=== PATIENT | female | born 1960 | race Caucasian/White ===

== ENCOUNTER → 2017-01-22 | Outpatient (REF) | payer OTHER ==
[2017-01-22 13:33] LABS: MEAN CORPUSCULAR HEMOGLOBIN 31.2 pg (27.0-33.0); MEAN CORPUSCULAR HGB CONC 35.5 g/dl (32.0-36.5); MEAN CORPUSCULAR VOLUME 88.1 fl (80.0-96.0); RED CELL DISTRIBUTION WIDTH 14.9 % (11.5-14.5); WHITE BLOOD COUNT 4.9 K/mm3 (4.0-10.0)
[2017-01-22 14:27] LABS: ALBUMIN 3.7 GM/DL (3.2-5.2); ALBUMIN/GLOBULIN RATIO 1.19 (1.00-1.93); ALKALINE PHOSPHATASE 72 U/L (45-117); ALT/SGPT 22 U/L (12-78); ANION GAP 9 MEQ/L (8-16); AST/SGOT 13 U/L (15-37); BILIRUBIN,TOTAL 0.3 MG/DL (0.2-1.0); BLOOD UREA NITROGEN 22 MG/DL (7-18); CALCIUM LEVEL 8.7 MG/DL (8.5-10.1); CARBON DIOXIDE LEVEL 31 MEQ/L (21-32); CHLORIDE LEVEL 103 MEQ/L (98-107); CHOLESTEROL LEVEL 168 MG/DL (<200); CREATININE FOR GFR 0.52 MG/DL (0.55-1.02); FREE T4 1.24 NG/DL (0.76-1.46); GLOMERULAR FILTRATION RATE > 60.0 (>51); GLUCOSE, FASTING 89 MG/DL (70-105); MAGNESIUM LEVEL 1.9 MG/DL (1.8-2.4); SODIUM LEVEL 143 MEQ/L (136-145); TOTAL PROTEIN 6.8 GM/DL (6.4-8.2); TRIGLYCERIDES LEVEL 125 MG/DL (<150); URIC ACID 5.6 MG/DL (2.6-6.0)
== END ==
LOC: M LABDRAW1 13:00
PROVIDERS: ATTEND Nurse Practitioner Family
DX: M15.9 Polyosteoarthritis, unspecified (principal); I10 Essential (primary) hypertension; E03.9 Hypothyroidism, unspecified; E11.9 Type 2 diabetes mellitus without complications; E78.2 Mixed hyperlipidemia

== ENCOUNTER → 2017-03-30 | Outpatient (CLI) | payer OTHER ==
--- NOTE | 2017-03-30 10:28 | REPMRS ---
Patient History The patient states she has not had a clinical breast exam in over a year. Patient is postmenopausal and is nulliparous. No known family history of cancer. Stereotatic Loc for ea Lesion of the right breast, January 22, 2012. Benign lumpectomy of the left breast, 2008. Digital Woman Screen Mammo: March 30, 2017 - Exam #: [id number] Bilateral CC and MLO view(s) were taken. Technologist: Alize Tristan, Technologist Prior study comparison: March 29, 2016, digital woman screen mammo performed at [facility]. March 29, 2015, digital woman screen mammo performed at [facility] to [facility]. FINDINGS: There are scattered fibroglandular densities. There has been no change in the appearance of the mammogram from the prior studies. There is a mild amount of residual fibroglandular tissue which is fairly symmetric. There is no interval development of dominant mass, architectural distortion, or clustered microcalcification suggestive of malignancy. ASSESSMENT: BI-RADS/ACR category 1 mammogram. Negative. Recommendation Routine screening mammogram in 1 year (for women over age 40). This mammogram was interpreted with the aid of an FDA-approved computer-aided dectection system. Electronically Signed By: Drew Fraire MD 03/30/17 [id number]
== END ==
LOC: M WHC 08:52
PROVIDERS: ATTEND Nurse Practitioner Family
DX: Z12.31 Encounter for screening mammogram for malignant neoplasm of breast (principal); Z78.0 Asymptomatic menopausal state

== ENCOUNTER → 2017-10-02 | Outpatient (CLI) | payer OTHER ==
[2017-10-02 13:57] LABS: ESTIMATED AVERAGE GLUCOSE 126 MG/DL (60-110)
[2017-10-02 13:58] LABS: TOTAL 25(OH) VITAMIN D 41.5 NG/ML (30.0-100.0)
[2017-10-02 14:13] LABS: ALBUMIN 3.5 GM/DL (3.2-5.2); ALBUMIN/GLOBULIN RATIO 1.06 (1.00-1.93); ALKALINE PHOSPHATASE 80 U/L (45-117); ALT/SGPT 20 U/L (12-78); ANION GAP 10 MEQ/L (8-16); AST/SGOT 17 U/L (7-37); BILIRUBIN,TOTAL 0.4 MG/DL (0.2-1.0); BLOOD UREA NITROGEN 23 MG/DL (7-18); CALCIUM LEVEL 8.9 MG/DL (8.5-10.1); CARBON DIOXIDE LEVEL 29 MEQ/L (21-32); CHLORIDE LEVEL 103 MEQ/L (98-107); CHOLESTEROL LEVEL 166 MG/DL (<200); CHOLESTEROL RISK RATIO 3.608 (<5); CREATININE FOR GFR 0.61 MG/DL (0.55-1.30); GLOMERULAR FILTRATION RATE > 60.0 (>51); GLUCOSE, FASTING 110 MG/DL (70-100); HDL CHOLESTEROL 46 MG/DL (>40); LDL CHOLESTEROL 76.2 MG/DL (<100); NON-HDL-C 120 MG/DL; POTASSIUM SERUM 3.7 MEQ/L (3.5-5.1); SODIUM LEVEL 142 MEQ/L (136-145); TOTAL PROTEIN 6.8 GM/DL (6.4-8.2); TRIGLYCERIDES LEVEL 219 MG/DL (<150)
[2017-10-02 14:28] LABS: MALB URINE SIEMENS 7.5 MG/L; MAU/CREAT RATIO 6.8 MCG/MG (0.0-30.0)
== END ==
LOC: M WUC 09:33
DX: E11.9 Type 2 diabetes mellitus without complications (principal); I10 Essential (primary) hypertension; M10.9 Gout, unspecified; E55.9 Vitamin D deficiency, unspecified
CPT/HCPCS: 84550

== ENCOUNTER → 2018-02-28 | Outpatient (CLI) | payer OTHER ==
[2018-02-28 13:16] LABS: ALBUMIN 3.3 GM/DL (3.2-5.2); ALBUMIN/GLOBULIN RATIO 0.94 (1.00-1.93); ALKALINE PHOSPHATASE 76 U/L (45-117); ALT/SGPT 19 U/L (12-78); ANION GAP 10 MEQ/L (8-16); AST/SGOT 13 U/L (7-37); BILIRUBIN,TOTAL 0.4 MG/DL (0.2-1.0); BLOOD UREA NITROGEN 21 MG/DL (7-18); CALCIUM LEVEL 8.6 MG/DL (8.5-10.1); CARBON DIOXIDE LEVEL 29 MEQ/L (21-32); CHLORIDE LEVEL 104 MEQ/L (98-107); CREATININE FOR GFR 0.62 MG/DL (0.55-1.30); FREE T4 1.13 NG/DL (0.76-1.46); GLOMERULAR FILTRATION RATE > 60.0 (>51); GLUCOSE, FASTING 101 MG/DL (70-100); POTASSIUM SERUM 4.1 MEQ/L (3.5-5.1); SODIUM LEVEL 143 MEQ/L (136-145); TOTAL PROTEIN 6.8 GM/DL (6.4-8.2)
[2018-02-28 13:39] LABS: ESTIMATED AVERAGE GLUCOSE 117 MG/DL (60-110); HEMOGLOBIN A1c 5.7 %
== END ==
LOC: M WUC 10:18
DX: E11.9 Type 2 diabetes mellitus without complications (principal); E03.9 Hypothyroidism, unspecified
CPT/HCPCS: 84443

== ENCOUNTER → 2018-04-03 | Outpatient (CLI) | payer OTHER | LOC: M WHC 14:29 | DX: Z12.31 Encounter for screening mammogram for malignant neoplasm of breast (principal) | CPT/HCPCS: 77067 ==

== ENCOUNTER → 2018-09-13 | Outpatient (CLI) | payer OTHER ==
[2018-09-13 17:28] LABS: CREATININE, URINE 69.8 MG/DL; MAU/CREAT RATIO 11.4 MCG/MG (0.0-30.0)
[2018-09-13 18:03] LABS: ALBUMIN 3.6 GM/DL (3.2-5.2); ALT/SGPT 20 U/L (12-78); BILIRUBIN,TOTAL 0.3 MG/DL (0.2-1.0); BLOOD UREA NITROGEN 26 MG/DL (7-18); CALCIUM LEVEL 8.9 MG/DL (8.8-10.2); CARBON DIOXIDE LEVEL 27 MEQ/L (21-32); CHLORIDE LEVEL 101 MEQ/L (98-107); CHOLESTEROL LEVEL 188 MG/DL (<200); CHOLESTEROL RISK RATIO 4.372 (<5); CREATININE FOR GFR 0.88 MG/DL (0.55-1.30); FREE T4 1.28 NG/DL (0.76-1.46); GLOMERULAR FILTRATION RATE > 60.0 (>45); GLUCOSE, FASTING 100 MG/DL (70-100); HDL CHOLESTEROL 43 MG/DL (>40); LDL CHOLESTEROL 101 MG/DL (<100); NON-HDL-C 145 MG/DL; POTASSIUM SERUM 3.9 MEQ/L (3.5-5.1); SODIUM LEVEL 139 MEQ/L (136-145); TRIGLYCERIDES LEVEL 220 MG/DL (<150); URIC ACID 7.5 MG/DL (2.6-6.0)
[2018-09-13 18:24] LABS: HEMOGLOBIN A1c 5.9 %
== END ==
LOC: M WUC 11:42
PROVIDERS: ATTEND Nurse Practitioner Family
DX: E11.9 Type 2 diabetes mellitus without complications (principal); E03.9 Hypothyroidism, unspecified

== ENCOUNTER → 2018-11-19 | Outpatient (REF) | payer OTHER ==
[2018-11-19 10:39] LABS: BASO % 0.4 % (0.0-1.0); EOS # 0.1 10^3/uL (0.0-0.50); EOS % 1.2 % (0.0-3.0); HEMATOCRIT 35.7 % (36.0-47.0); HEMOGLOBIN 11.7 g/dl (12.0-15.5); LYMPH # 0.9 10^3/uL (1.5-4.5); LYMPH % 15.1 % (24.0-44.0); MEAN CORPUSCULAR HGB CONC 32.8 g/dl (32.0-36.5); MEAN CORPUSCULAR VOLUME 88.6 fl (80.0-96.0); MONO # 0.8 10^3/uL (0.0-0.8); MONO % 13.5 % (0.0-5.0); NEUTROPHILS # 3.9 10^3/uL (1.8-7.7); NEUTROPHILS % 69.1 % (36.0-66.0); PLATELET COUNT, AUTOMATED 193 10^3/uL (150-450); RED BLOOD COUNT 4.03 10^6/uL (4.00-5.40); WHITE BLOOD COUNT 5.7 10^3/uL (4.0-10.0)
[2018-11-19 11:34] LABS: ERYTHROCYTE SEDIMENTATION RATE 44 mm/hr (0-30)
== END ==
LOC: M SFHCPLAZ 08:52
PROVIDERS: ATTEND Family Medicine
DX: L01.00 Impetigo, unspecified (principal)

== ENCOUNTER → 2019-03-21 | Outpatient (REF) | payer OTHER ==
[2019-03-21 15:53] LABS: HEMOGLOBIN A1c 5.9 %
[2019-03-21 15:54] LABS: ALBUMIN 3.8 GM/DL (3.2-5.2); ALT/SGPT 20 U/L (12-78); BILIRUBIN,TOTAL 0.4 MG/DL (0.2-1.0); BLOOD UREA NITROGEN 23 MG/DL (7-18); CALCIUM LEVEL 9.1 MG/DL (8.8-10.2); CARBON DIOXIDE LEVEL 29 MEQ/L (21-32); CHLORIDE LEVEL 104 MEQ/L (98-107); CREATININE FOR GFR 0.87 MG/DL (0.55-1.30); FREE T4 1.16 NG/DL (0.76-1.46); GLOMERULAR FILTRATION RATE > 60.0 (>45); GLUCOSE, FASTING 119 MG/DL (70-100); POTASSIUM SERUM 3.8 MEQ/L (3.5-5.1); SODIUM LEVEL 140 MEQ/L (136-145); TOTAL PROTEIN 7.5 GM/DL (6.4-8.2)
== END ==
LOC: M LABDRAW1 10:36
PROVIDERS: ATTEND Nurse Practitioner Family
DX: I10 Essential (primary) hypertension (principal); E03.9 Hypothyroidism, unspecified; E11.9 Type 2 diabetes mellitus without complications

== ENCOUNTER → 2019-06-04 | Outpatient (CLI) | payer OTHER ==
--- NOTE | 2019-06-04 12:09 | REP ---
Chest x-ray: Two views. History: Exertional dyspnea. No comparison study. Findings: The lungs are symmetrically aerated and free of infiltrate. The pleural angles are sharp. The heart is mildly enlarged. Cardiothoracic ratio measures 53.0%. Pulmonary vasculature is cephalized. No interstitial edema is seen. The thoracic aorta is tortuous and calcific. There are mild degenerative changes in the thoracic spine. Impression: Mild cardiomegaly. Cephalization of pulmonary vasculature. Otherwise no acute disease. Electronically Signed by Monster Bertrand MD 06/04/2019 01:00 P
== END ==
LOC: M SMT 08:39
PROVIDERS: ATTEND Nurse Practitioner Family
DX: R06.9 Unspecified abnormalities of breathing (principal)

== ENCOUNTER → 2019-06-04 | Outpatient (CLI) | payer OTHER ==
--- NOTE | 2019-06-04 09:46 | REPMRS ---
Patient History The patient states she had a clinical breast exam in 03/2019. Patient is postmenopausal and is nulliparous. No known family history of cancer. Stereotatic Loc for ea Lesion of the right breast, January 22, 2012. Benign lumpectomy of the left breast, 2008. No Hormone Replacement Therapy 3D TOMOSYNTHESIS WAS PERFORMED. The [facility] lifetime risk for breast cancer is 9.0%. Digital Woman Screen Mammo: June 04, 2019 - Exam #: [id number] Bilateral CC and MLO view(s) were taken. Technologist: Alize Tristan, Technologist Prior study comparison: April 03, 2018, bilateral digital woman screen mammo performed at [facility]. March 30, 2017, digital woman screen mammo performed at [facility]. FINDINGS: There are scattered fibroglandular densities. There has been no change in the appearance of the mammogram from the prior studies. There is a mild amount of residual fibroglandular tissue which is fairly symmetric. There is no interval development of dominant mass, architectural distortion, or clustered microcalcification suggestive of malignancy. Assessment: BI-RADS/ACR category 1 mammogram. Negative Mammogram. Recommendation Routine screening mammogram in 1 year (for women over age 40). This mammogram was interpreted with the aid of an FDA-approved computer-aided dectection system. Electronically Signed By: Drew Fraire MD 06/04/19 0945
== END ==
LOC: M WHC 07:59
PROVIDERS: ATTEND Nurse Practitioner Family
DX: Z12.31 Encounter for screening mammogram for malignant neoplasm of breast (principal)

== ENCOUNTER → 2019-09-19 | Outpatient (CLI) | payer OTHER ==
[2019-09-19 18:40] LABS: ALBUMIN 3.7 GM/DL (3.2-5.2); ALT/SGPT 17 U/L (12-78); BILIRUBIN,TOTAL 0.3 MG/DL (0.2-1.0); BLOOD UREA NITROGEN 20 MG/DL (7-18); CALCIUM LEVEL 8.7 MG/DL (8.8-10.2); CARBON DIOXIDE LEVEL 28 MEQ/L (21-32); CHLORIDE LEVEL 102 MEQ/L (98-107); CHOLESTEROL LEVEL 200 MG/DL (<200); CHOLESTEROL RISK RATIO 4.444 (<5); CREATININE FOR GFR 0.86 MG/DL (0.55-1.30); GLOMERULAR FILTRATION RATE > 60.0 (>45); GLUCOSE, FASTING 110 MG/DL (70-100); HDL CHOLESTEROL 45 MG/DL (>40); LDL CHOLESTEROL 102 MG/DL (<100); NON-HDL-C 155 MG/DL; POTASSIUM SERUM 3.8 MEQ/L (3.5-5.1); SODIUM LEVEL 140 MEQ/L (136-145); TOTAL PROTEIN 7.6 GM/DL (6.4-8.2); TRIGLYCERIDES LEVEL 265 MG/DL (<150); URIC ACID 8.1 MG/DL (2.6-6.0)
[2019-09-19 18:41] LABS: TOTAL 25(OH) VITAMIN D 54.2 NG/ML (30.0-100.0)
[2019-09-19 18:43] LABS: CREATININE, URINE 66.1 MG/DL; MALB URINE SIEMENS 7.7 MG/L; MAU/CREAT RATIO 11.6 MCG/MG (0.0-30.0)
== END ==
LOC: M WUC 11:40
PROVIDERS: ATTEND Nurse Practitioner Family
DX: E11.9 Type 2 diabetes mellitus without complications (principal); E03.9 Hypothyroidism, unspecified; E78.2 Mixed hyperlipidemia; M10.9 Gout, unspecified; E55.9 Vitamin D deficiency, unspecified

== ENCOUNTER → 2020-01-15 | Outpatient (REF) | payer OTHER ==
[2020-01-15 11:48] LABS: HEMOGLOBIN A1c 5.7 %
[2020-01-15 13:35] LABS: ALBUMIN 3.6 GM/DL (3.2-5.2); ALT/SGPT 18 U/L (12-78); BILIRUBIN,TOTAL 0.7 MG/DL (0.2-1.0); BLOOD UREA NITROGEN 23 MG/DL (7-18); CALCIUM LEVEL 8.8 MG/DL (8.8-10.2); CARBON DIOXIDE LEVEL 28 MEQ/L (21-32); CHLORIDE LEVEL 103 MEQ/L (98-107); CHOLESTEROL LEVEL 182 MG/DL (<200); CHOLESTEROL RISK RATIO 4.333 (<5); CREATININE FOR GFR 0.85 MG/DL (0.55-1.30); FREE T4 1.11 NG/DL (0.76-1.46); GLOMERULAR FILTRATION RATE > 60.0 (>45); GLUCOSE, FASTING 120 MG/DL (70-100); HDL CHOLESTEROL 42 MG/DL (>40); LDL CHOLESTEROL 73 MG/DL (<100); NON-HDL-C 140 MG/DL; POTASSIUM SERUM 3.9 MEQ/L (3.5-5.1); SODIUM LEVEL 140 MEQ/L (136-145); TOTAL PROTEIN 7.2 GM/DL (6.4-8.2); TRIGLYCERIDES LEVEL 333 MG/DL (<150)
== END ==
LOC: M SFHCPLAZ 09:25
PROVIDERS: ATTEND Nurse Practitioner Family
DX: E11.9 Type 2 diabetes mellitus without complications (principal); E03.9 Hypothyroidism, unspecified; E78.2 Mixed hyperlipidemia

== ENCOUNTER → 2020-07-12 | Outpatient (REF) | payer OTHER ==
[2020-07-12 15:27] LABS: HEMOGLOBIN A1c 6.1 %
[2020-07-12 15:30] LABS: CREATININE, URINE 27.5 MG/DL; MALB URINE SIEMENS 6.6 MG/L
[2020-07-12 15:40] LABS: ALBUMIN 3.6 GM/DL (3.2-5.2); BILIRUBIN,TOTAL 0.3 MG/DL (0.2-1.0); CALCIUM LEVEL 9.4 MG/DL (8.8-10.2); CHOLESTEROL RISK RATIO 3.954 (<5); CREATININE FOR GFR 1.12 MG/DL (0.55-1.30); FREE T4 1.23 NG/DL (0.76-1.46); GLOMERULAR FILTRATION RATE 52.5 (>45); POTASSIUM SERUM 4.3 MEQ/L (3.5-5.1); THYROID STIMULATING HORMONE 1.6 uIU/ML (0.358-3.740); TOTAL PROTEIN 7.1 GM/DL (6.4-8.2)
== END ==
LOC: M PLALAB 10:39
PROVIDERS: ATTEND Nurse Practitioner Family
DX: E11.9 Type 2 diabetes mellitus without complications (principal); E03.9 Hypothyroidism, unspecified; E78.2 Mixed hyperlipidemia; E55.9 Vitamin D deficiency, unspecified

== ENCOUNTER → 2020-08-25 | Outpatient (CLI) | payer OTHER ==
--- NOTE | 2020-08-25 10:32 | REP ---
INDICATION: SCREENING MAMMOGRAM ENCOUNTER FOR. COMPARISON: 06/04/2019 as well as other prior exams. TECHNIQUE: MLO and CC views performed bilaterally with tomosynthesis. FINDINGS: Very mild scattered fibroglandular tissue is present. A new spiculated nodule is seen in the outer right breast. This measures about 1 cm in diameter. Otherwise no new mass or clustered microcalcifications are seen bilaterally. Biopsy clip is again seen in the inner right breast. The Volpara volumetric breast density pattern is A. IMPRESSION: BIRADS/ACR category 0 incomplete. New spiculated nodule outer right breast approximately 1 cm in diameter. Recommend spot compression views and ultrasound to further evaluate. This patient's Tyrer-Cuzick lifetime breast cancer risk assessment score is 8.71%. This mammogram was interpreted with the aid of an FDA-approved computer-aided detection system. The patient states she had a clinical breast exam in August 2020. The patient letter being requested is M0. RECOMMENDATION: Spot compression views and ultrasound outer right breast for new spiculated nodule. <Electronically signed by Drew Fraire > 08/25/20 1026
== END ==
LOC: M WHC 09:03
PROVIDERS: ATTEND Nurse Practitioner Family
DX: R92.2 Inconclusive mammogram (principal)

== ENCOUNTER → 2020-09-09 | Outpatient (CLI) | payer OTHER ==
--- NOTE | 2020-09-09 14:17 | REP ---
INDICATION: N63.0 ADDL VIEWS/RIGHT BREAST NODULE; N63.0 RIGHT BREAST NODULE. COMPARISON: Mammogram 08/25/2020. TECHNIQUE: Spot compression magnification views of the right breast performed in the upper-outer quadrant, with tomographic images in the mL projection. Focused right breast ultrasound performed in the upper-outer quadrant. FINDINGS: A 1 cm spiculated nodule is confirmed in the upper outer quadrant of the right breast. It is visualized both mammographically and sonographically. It is at the 10 o'clock position approximately 12 cm from the nipple. IMPRESSION: BIRADS/ACR category 4, suspicious. Small spiculated nodule confirmed mammographically and sonographically in the upper-outer quadrant of the right breast at about the 10 o'clock position, measuring 1 cm in diameter. Recommend ultrasound-guided biopsy with postprocedure mammogram. This mammogram was interpreted with the aid of an FDA-approved computer-aided detection system. The patient letter being requested is M4. RECOMMENDATION: Recommend ultrasound-guided biopsy of spiculated nodule upper-outer quadrant right breast with postprocedure mammography. <Electronically signed by Drew Fraire > 09/09/20 [id number]
== END ==
LOC: M WHC 12:58
PROVIDERS: ATTEND Nurse Practitioner Family
DX: N63.11 Unspecified lump in the right breast, upper outer quadrant (principal)
CPT/HCPCS: 76642; 77065; G0279

== ENCOUNTER → 2020-09-22 | Outpatient (CLI) | payer OTHER ==
[~2020-09-22] MED LIST: ALLO100T PO; ASPI81TA26 PO; BUPR150T4 PO; CALCCAP4 PO; CELE1CAP4 PO; DRIS50003 PO; LASI80TA3 PO; LEVO88CA PO; LEXA1TAB PO; LISI20TA20 PO; LOVA40TA PO; MAGN1CAP PO; METF500T13 PO; METO1TAB7 PO; OMEP1CAP73 PO; ONDA8TAB10 PO; POTASSIUM PO; PROC10TA4 PO
[2020-09-22 14:24] VITALS: BP 134/82
--- NOTE | 2020-09-22 16:29 | REP ---
INDICATION: R92.8 ABN RIGHT BREAST. COMPARISON: Seven hundred twenty-one. TECHNIQUE: Real-time sonographic evaluation of right breast performed. FINDINGS: Ultrasound guidance provided for ultrasound guided biopsy of right breast nodule at 10 o'clock. IMPRESSION: Ultrasound guidance for biopsy of right breast nodule at 10 o'clock. RECOMMENDATION: Clinical follow-up. <Electronically signed by Drew Fraire > 09/22/20 1189
--- NOTE | 2020-09-22 16:31 | REP ---
INDICATION: R92.8 ABN R MAMMO/U/S GUIDED BX/CK CLIP PLACEMENT. COMPARISON: 08/25/2020 and 09/09/2020. TECHNIQUE: ML and CC views right breast following ultrasound-guided biopsy of a nodule in the upper outer quadrant. FINDINGS: Metallic clip is seen at the site of the spiculated nodule in the upper outer quadrant of the right breast. IMPRESSION: Successful ultrasound-guided biopsy with appropriate clip placement at the site of the spiculated nodule in the upper outer quadrant of the right breast. RECOMMENDATION: Clinical follow-up. <Electronically signed by Drew Fraire > 09/22/20 1181
--- NOTE | 2020-09-25 12:53 | ROOPDOC ---
[facility] Report Of Operation Report of Operation DATE OF PROCEDURE: 09/22/20 DIAGNOSIS: right breast suspicious lesion PROCEDURE: Ultrasound guided biopsy of right breast suspicious lesion with clip placement SURGEON: Cee Munoz BLOOD LOSS: minimal COMPLICATIONS: none Lidocaine 1% LOT [id number] Expiration 11/2023 Sodium Bicarbonate 8.4% LOT [id number] Expiration 02/2021 Hydromark clip LOT [id number] Expiration 06/2023 SHAPE 4 Bx device: BARD [id number] x10 cm LOT [id number] Expiration 08/2022 Informed consent was obtained. The most common risk and possible complications including bleeding, hematoma, bruising, infection, injury to surrounding structures were explained to the patient and the patient expressed understanding. Patient was placed on the bed in the supine position. Appropriate time out was done stating patients name, date of , and the procedure to be performed. The right breast was prepped and draped in the usual fashion. The ultrasound was used to confirm the location of the lesion in the right breast at 10:00 12 centimeters from the nipple. Plain Lidocaine 1% and 8.4% sodium bicarbonate 10:1 mix was used to anesthetize the skin, the biopsy site and tissues along the anticipated biopsy tract. Small skin incision was made with blade number 11. BARD Marquee 14G cannula with introducer ([id number]) was inserted through the incision and advanced under the ultrasound guidance to position immediately adjacent to the lesion. Next, the introducer was removed and BARD Marquee 14G biopsy device was places in the cannula. Pre-biopsy imaging, and post-biopsy imaging were captured. Five good core biopsies were taken at various levels of the lesion. Specimen was placed in formaldehyde, labeled with appropriate biopsy site and patients name, and sent to pathology for evaluation. Next, the biopsy device was withdrawn and a clip introducer was inserted into the biopsy site via the cannula. The SHAPE 4 Hydromark clip was deployed under sonographic guidance. Post-clip placement image was captured. Manual pressure over the biopsy cavity and tract was held after the clip introducer was withdrawn. No bleeding was noted upon removal of the pressure. Post-biopsy mammogram of the right breast was obtained and showed clip in expected position. Postprocedural dressing was placed. Patient tolerated procedure well. Discharge instructions were discussed with the patient and the patient expressed understanding. CEE MUNOZ DO Sep 25, 2020 12:53
== END ==
LOC: M WHCPRO 08:55
PROVIDERS: ATTEND Surgery
DX: C50.911 Malignant neoplasm of unspecified site of right female breast (principal)
CPT/HCPCS: 19083; 77065; 88305; 88342; G0279

== ENCOUNTER → 2020-10-07 | Outpatient (CLI) | payer OTHER ==
[~2020-10-07] MED LIST changes: +ISOVUE-300 61% 50ML VIAL As Ordered ONE; +LIDOCAINE 1% MDV 20ML VIAL As Ordered ONE; +MIDAZOLAM INJ 2MG/2ML VIAL (J2250 PER 1MG) As Ordered ONE; -ONDA8TAB10 PO; -PROC10TA4 PO; +PROMETHAZINE INJ 25 MG/ML VIAL (J2550) As Ordered ONE; +VANCOMYCIN 1000MG/20ML VIAL As Ordered ONE; +diphenhydrAMINE 50MG/ML VIAL (J1200) As Ordered ONE; +fentaNYL 100 MCG/2 ML INJECTION (J3010) As Ordered ONE
[2020-10-07 09:31] VITALS: BP 133/64
--- NOTE | 2020-10-07 09:34 | IRHP ---
[facility] IR Pre-Procedure H & P General Date of Service: Oct 07, 2020 Procedure: Same Day Surgery Interval History and Physical I have seen the patient and reviewed last H & P performed within 30 days. There is no significant interval change. History of Present Illness Chief Complaint The patient is a 60-year-old female admitted with a reason for visit of right- sided Breast Ca. PRE-PROCEDURE DIAGNOSIS: Right-sided breast cancer HEART: Normal rate. LUNGS: Normal breathing at rest. ASA Classification ASA Classification: III-Severe systemic dis. Mallampati Score: II NPO: Yes Problems with prior sedation: No Obstructive Sleep Apnea: No Plan moderate sedation Allergies Coded Allergies: MS - Penicillins (Verified Allergy, Unknown, ITCHING AND HIVES, 12/02/12) MS - Penicillins Cross Reactors (Verified Allergy, Unknown, ITCHING AND HIVES, 12/02/12) Home Medications Scheduled Allopurinol (Allopurinol), 100 MG PO DAILY, (Reported) Aspirin (Aspirin EC), 81 MG PO DAILY, (Reported) Bupropion Hcl (Bupropion Xl), 150 MG PO QAM, (Reported) Calcium Carbonate/Vitamin D3 (Calcium 600 + Vit D 400 Softgl), 1 CAP PO BID, (Reported) Celecoxib (Celebrex), 200 MG PO DAILY, (Reported) Ergocalciferol (Vitamin D2) (Drisdol), 1,250 MCG PO QWEEK, (Reported) Escitalopram Oxalate (Lexapro), 10 MG PO DAILY, (Reported) Furosemide (Lasix), 80 MG PO DAILY, (Reported) Levothyroxine Sodium (Levothyroxine), 88 MCG PO DAILY, (Reported) Lisinopril/Hydrochlorothiazide (Lisinopril-Hctz 20-25 mg Tab), 1 TAB PO DAILY, (Reported) Lovastatin (Lovastatin), 40 MG PO QPM, (Reported) Magnesium Oxide (Magnesium), 500 MG PO DAILY, (Reported) Metformin HCl (Metformin HCl), 500 MG PO BID, (Reported) Metoprolol Succinate (Metoprolol Succinate), 50 MG PO DAILY, (Reported) Omeprazole (Omeprazole), 20 MG PO DAILY, (Reported) [Potassium Elixir], 10 MEQ PO DAILY, (Reported) VS, I&O, 24H, Fishbone Vital Signs/I&O Vital Signs Date Time Temp Pulse Resp B/P (MAP) Pulse Ox O2 Delivery O2 Flow Rate FiO2 10/07/20 09:20 51 18 100 Nasal Cannula 2 10/07/20 07:45 97.6 Laboratory Data 24H LABS Laboratory Tests 2 10/07/20 08:02: Bedside Glucose (Misc Panel) 141H REJI JUAREZ MD Oct 07, 2020 09:34
--- NOTE | 2020-10-07 12:57 | POST-OPPD ---
Postoperative Procedure Note Date Of Procedure: Oct 07, 2020 Time Of Procedure: 12:54 IR Ultrasound and fluoroscopy guided port placement. IR Ultrasound of the neck. IR Moderate sedation. Clinical indication: Right-sided breast cancer. Physician: Dr. Reed. Procedure: The patient was advised of the benefits, risks, and alternatives of the procedure and informed consent was obtained. A time-out was performed with verification of the patient's name, MRN, site of procedure and type of procedure to be performed. The patient was positioned in the supine position on the angiographic table. The site was prepped and draped in the usual sterile fashion. Moderate sedation was performed by the physician including the presence of an independent trained RN who assisted and monitored the patient's level of consciousness and physiologic status. Following the administration of fentanyl and Versed , the physician spent 45 minutes of continuous face to face time with the patient. Ultrasound of the neck reveals a patent and compressible left internal jugular vein. A billet checker radiograph reveals no gross abnormality. The neck and anterior chest wall were anesthetized with lidocaine. The left internal jugular vein was accessed using a microintroducer needle under ultrasound guidance, via a lateral approach. An 018 wire was advanced into the superior vena cava, the needle was removed and a microsheath was placed. An Amplatz wire was then passed into the inferior vena cava. An incision at the internal jugular vein access site and anterior chest wall were made using a scalpel. An incision was made at the anterior chest wall. A small pocket was created using a combination of blunt and sharp dissection. A tunneling device was then used to pass the catheter from the pocket to the neck puncture site. An 8- [employer] Smart power port was then positioned in the pocket. The catheter was then measured and cut. The introducer sheath was exchanged for a peel-away sheath. The catheter was passed through the peel-away sheath into the internal jugular vein and the peel-away sheath was removed. The port tip was positioned at the cavoatrial junction. The port was then accessed with a Sosa needle. The port flushes and aspirates well. The puncture site in the neck was closed. The chest wall incision was then closed with 2-0 Vicryl and 4-0 Monocryl. Glue and Steri- Strips were applied. A sterile dressing was then applied. The patient tolerated the procedure well and was returned to the PRU in stable condition. Estimated blood loss: <5 ml. Complications: None. Conclusion: 1. Successful placement of an 8-[place]amese [employer] Smart power port via the Left internal jugular vein. The port is ready for immediate use. 2. Patient to follow up in IR clinic in 2 weeks. Thank you for this referral. REJI REED MD Oct 07, 2020 12:57
== END ==
LOC: M IRPRO 07:26
PROVIDERS: ATTEND Radiology Diagnostic Radiology
DX: C50.911 Malignant neoplasm of unspecified site of right female breast (principal); Z88.0 Allergy status to penicillin; Z79.82 Long term (current) use of aspirin; Z79.84 Long term (current) use of oral hypoglycemic drugs; Z79.890 Hormone replacement therapy; Z79.899 Other long term (current) drug therapy
CPT/HCPCS: 36561; 99152; 99153; C1769; C1788; C1887; C1894; J1642; J1644; J2250; J3010; J3370; Q9967

== ENCOUNTER → 2020-10-18 | Outpatient (CLI) | payer OTHER ==
[~2020-10-18] MED LIST changes: -ISOVUE-300 61% 50ML VIAL As Ordered ONE; -LIDOCAINE 1% MDV 20ML VIAL As Ordered ONE; -MIDAZOLAM INJ 2MG/2ML VIAL (J2250 PER 1MG) As Ordered ONE; +ONDA8TAB10 PO; +PROC10TA4 PO; -PROMETHAZINE INJ 25 MG/ML VIAL (J2550) As Ordered ONE; -VANCOMYCIN 1000MG/20ML VIAL As Ordered ONE; -diphenhydrAMINE 50MG/ML VIAL (J1200) As Ordered ONE; -fentaNYL 100 MCG/2 ML INJECTION (J3010) As Ordered ONE
--- NOTE | 2020-10-18 18:15 | REPPI ---
INDICATION: I10 ESSENTIAL HYPERTENSION COMPARISON: 06/04/2019 TECHNIQUE: PA and lateral. FINDINGS: [id number] with tip in the SVC. The mediastinum and cardiac silhouette are normal. The lung velazquez demonstrate chronic stable changes without acute consolidation, effusion, or pneumothorax. The skeletal structures are intact and normal. IMPRESSION: No acute cardiopulmonary process. <Electronically signed by Carlos Verde > 10/18/20 [id number]
== END ==
LOC: M PLAIMG 09:09
PROVIDERS: ATTEND Nurse Practitioner Family
DX: I10 Essential (primary) hypertension (principal)

== ENCOUNTER → 2020-10-26 | Outpatient (POV) | payer OTHER ==
--- NOTE | 2020-10-28 10:39 | IRPN ---
[facility] IR Progress Note IR Progress Note DATE: Oct 26, 2020 Patient agreed to this telephone follow-up. I spent 5 minutes talking to the patient. FOLLOW-UP: Status post port placement. Patient states the port site is doing well. No pain, discharge or swelling. Port was used without any issues. ON EXAMINATION: Patient sent pictures of the port site. Port site appears to be healing well. No redness, discharge or swelling. One single Steri-Strip remains at the venotomy site and will fall off. IMPRESSION: Doing well status post port placement. No further follow-up scheduled unless initiated by patient and or referring provider. Thank you for this referral Allergies Coded Allergies: Penicillins (Unverified Allergy, Unknown, ITCHING AND HIVES, 10/14/20) REJI JUAREZ MD Oct 28, 2020 10:39
== END ==
LOC: M TMIRPOV 09:31
PROVIDERS: ATTEND Radiology Diagnostic Radiology
DX: Z45.2 Encounter for adjustment and management of vascular access device (principal)

== ENCOUNTER → 2020-11-03 | Outpatient (CLI) | payer OTHER ==
[~2020-11-03] MED LIST changes: +BUPR150T12 PO; -BUPR150T4 PO
--- NOTE | 2020-11-03 16:04 | REP ---
INDICATION: STARTING HERCEPTIN, HEART CONDITION. COMPARISON: None. TECHNIQUE/RADIOTRACER AND DOSE: Following the intravenous administration of 27.5 mCi technetium 99 M in vitro labeled red blood cells, using the ultra tag method, cine images of the heart are performed. FINDINGS: Appears to be relatively symmetrical left ventricular wall motion. Left ventricular ejection fraction is calculated comparing imaging in end diastole and end systole. IMPRESSION: Left ventricular ejection fraction 60.0%. <Electronically signed by Drew Fraire > 11/03/20 [id number]
== END ==
LOC: M RAD 12:55
PROVIDERS: ATTEND Specialist
DX: Z79.899 Other long term (current) drug therapy (principal)
CPT/HCPCS: 78472; A9560

== ENCOUNTER → 2020-11-08 | Outpatient (REF) | payer OTHER ==
[2020-11-08 14:51] LABS: ALBUMIN 3.7 GM/DL (3.2-5.2); CALCIUM LEVEL 9.6 MG/DL (8.8-10.2); CREATININE FOR GFR 1.17 MG/DL (0.55-1.30); GLOMERULAR FILTRATION RATE 49.9 (>45); PHOSPHORUS LEVEL 3.1 MG/DL (2.5-4.9); POTASSIUM SERUM 3.9 MEQ/L (3.5-5.1)
[2020-11-08 15:27] LABS: HEMOGLOBIN A1c 5.8 %
== END ==
LOC: M PLALAB 10:22
PROVIDERS: ATTEND Nurse Practitioner Family
DX: E11.22 Type 2 diabetes mellitus with diabetic chronic kidney disease (principal); N18.31 Chronic kidney disease, stage 3a

== ENCOUNTER → 2021-02-02 | Outpatient (CLI) | payer OTHER ==
[~2021-02-02] MED LIST changes: +ACET650T61 PO; +FERR325T3 PO; +METF-838 PO
--- NOTE | 2021-02-02 11:18 | REP ---
INDICATION: DIAG R BREAST MAMMO/BREAST CA. COMPARISON: Multiple TECHNIQUE: Right breast CC and MLO views using 2D and 3D modalities and compared to the prior exams. FINDINGS: In lieu of a small spiculated lesion seen in the right breast upper outer quadrant on the 09/09/2020 diagnostic mammogram there is a surgical biopsy clip in place. It is unchanged in position compared to the postprocedural examination of 09/22/2020. A small smoothly marginated nodule is seen surrounding the biopsy clip. There are no other significant breast abnormalities. IMPRESSION: BIRADS/ACR category 6 mammogram. Known breast cancer. No history of lumpectomy for this lesion. The patient letter being requested is M 6. RECOMMENDATION: As above <Electronically signed by Aman Meade > 02/02/21 0317
--- NOTE | 2021-02-02 12:21 | REP ---
INDICATION: R BREAST MAMMO/BREAST CA. COMPARISON: Examination 09/22/2020 images obtained during ultrasound-guided biopsy and in exam of 09/09/2020 imaging the same lesion. TECHNIQUE: Ultrasonographic images obtained at the 10 o'clock position in the postprocedural region. FINDINGS: There is an echogenic focus seen at the 10 o'clock position consistent with the patient's post biopsy clip. A smoothly marginated 1.3 by 0.4 by 0.4 cm sized hypoechoic area is seen surrounding the biopsy clip. This does not exhibit posterior wall enhancement or increased through transmission. IMPRESSION: As above. Patient with known breast cancer. ACR category 6 <Electronically signed by Aman Meade > 02/02/21 [id number]
== END ==
LOC: M WHC 10:03
PROVIDERS: ATTEND Surgery
DX: C50.411 Malignant neoplasm of upper-outer quadrant of right female breast (principal)
CPT/HCPCS: 76642; 77065; G0279

== ENCOUNTER → 2021-02-04 | Outpatient (REF) | payer OTHER ==
[2021-02-04 18:11] LABS: PERCENT SATURATION 14.8 % (13.2-45.0)
[2021-02-04 18:29] LABS: FOLATE 6.6 NG/ML
== END ==
LOC: M LAB REF 17:07
PROVIDERS: ATTEND Internal Medicine Nephrology
DX: N18.9 Chronic kidney disease, unspecified (principal); D63.1 Anemia in chronic kidney disease

== ENCOUNTER → 2021-02-10 | Outpatient (CLI) | payer OTHER | LOC: M LABSMTC 10:51 | PROVIDERS: ATTEND Anesthesiology | DX: Z11.52 Encounter for screening for COVID-19 (principal) ==

== ENCOUNTER → 2021-02-10 | Outpatient (CLI) | payer OTHER ==
--- NOTE | 2021-02-11 03:47 | REPPI ---
INDICATION: R06.00 DYSPNEA ON EXERTION COMPARISON: 10/18/2020 TECHNIQUE: PA and lateral. FINDINGS: The mediastinum and cardiac silhouette are normal. [id number]-Lveu identified with tip in the SVC. The lung velazquez are clear and without acute consolidation, effusion, or pneumothorax. The skeletal structures are intact and normal. IMPRESSION: No acute cardiopulmonary process. <Electronically signed by Carlos Verde > 02/11/21 [id number]
== END ==
LOC: M PLAIMG 13:52
PROVIDERS: ATTEND Family Medicine
DX: R06.00 Dyspnea, unspecified (principal)

== ENCOUNTER → 2021-02-10 | Outpatient (REF) | payer OTHER ==
[2021-02-10 15:59] LABS: HEMATOCRIT 29.9 % (36.0-47.0); MEAN CORPUSCULAR HEMOGLOBIN 32.3 pg (27.0-33.0); MEAN CORPUSCULAR HGB CONC 33.4 g/dl (32.0-36.5); MEAN CORPUSCULAR VOLUME 96.5 fl (80.0-96.0); PLATELET COUNT, AUTOMATED 346 10^3/uL (150-450); WHITE BLOOD COUNT 8.3 10^3/uL (4.0-10.0)
[2021-02-10 16:09] LABS: BLOOD UREA NITROGEN 19 MG/DL (7-18); CALCIUM LEVEL 8.9 MG/DL (8.8-10.2); CARBON DIOXIDE LEVEL 28 MEQ/L (21-32); CHLORIDE LEVEL 105 MEQ/L (98-107); GLOMERULAR FILTRATION RATE > 60.0 (>45); GLUCOSE, FASTING 136 MG/DL (70-100); NT-PRO BNP 121 PG/ML (<125); POTASSIUM SERUM 3.7 MEQ/L (3.5-5.1); SODIUM LEVEL 142 MEQ/L (136-145)
== END ==
LOC: M SFHCPLAZ 13:48
PROVIDERS: ATTEND Family Medicine
DX: N18.31 Chronic kidney disease, stage 3a (principal); D63.8 Anemia in other chronic diseases classified elsewhere; R06.00 Dyspnea, unspecified

== ENCOUNTER 2021-02-15 06:31 | Observation (INO) | payer OTHER ==
[~2021-02-15] VITALS: Ht 167.6 cm; Wt 147.9 kg
[~2021-02-15 06:31] MED LIST changes: +CLINDAMYCIN 900 MG in IV 1 EA IV ONE; +HEPARIN SOD (PORCINE) 5000UNITS/ML 1ML VIAL/SYRINGE SQ ONE; +LR 1,000 ML IV ONE
[2021-02-15] MEDS ORDERED: MIDAZOLAM INJ 2MG/2ML VIAL (J2250 PER 1MG) As Ordered ONE (09:46)
[2021-02-15] MEDS ORDERED: LIDOCAINE 1% SDV 30ML VIAL As Ordered ONE (10:12)
[2021-02-15] MEDS ORDERED: BUPIVACAINE HCL 0.25% 30ML VIAL As Ordered ONE (10:12)
[2021-02-15] MEDS ORDERED: METHYLENE BLUE 0.5% (5MG/ML) 10 ML AMP (PROVAYBLUE) As Ordered ONE (10:12)
[2021-02-15] MEDS ORDERED: propofoL 200 MG/20 ML VIAL As Ordered ONE (10:40)
[2021-02-15] MEDS ORDERED: dexameTHASONE 4 MG/ML 1ML VIAL (J1100 PER 1MG) As Ordered ONE (10:40)
[2021-02-15] MEDS ORDERED: ONDANSETRON 4MG/2ML VIAL As Ordered ONE (10:40)
[2021-02-15] MEDS ORDERED: SUCCINYLCHOLINE 100 MG/5 ML SYRINGE (J0330) As Ordered ONE (10:40)
[2021-02-15] MEDS ORDERED: ROCURONIUM BROMIDE 50 MG/5 ML VIAL As Ordered ONE (10:40)
[2021-02-15] MEDS ORDERED: LIDOCAINE 2% 100MG/5ML SDV (FOR ANES.) As Ordered ONE (10:40)
[2021-02-15] MEDS ORDERED: fentaNYL 100 MCG/2 ML INJECTION (J3010) As Ordered ONE (10:41)
[2021-02-15] MEDS ORDERED: ACETAMINOPHEN 1000MG 100ML IV BTL (OFIRMEV) (J0131 PER 10MG) As Ordered ONE (11:08)
[2021-02-15] MEDS ORDERED: diphenhydrAMINE 50MG/ML VIAL (J1200) As Ordered ONE (11:18)
[2021-02-15] MEDS ORDERED: HYDROmorphone HCL 2 MG/ML 1ML VIAL (J1170) As Ordered ONE (11:23)
[2021-02-15] MEDS ORDERED: GLYCOPYRROLATE INJ 0.2 MG/ML 2 ML VIAL As Ordered ONE (12:09)
[2021-02-15] MEDS ORDERED: ePHEDrine SULFATE 25 MG/5 ML(5MG/ML) SYRINGE As Ordered ONE (12:10)
[2021-02-15] MEDS ORDERED: PHENYLephrine 500MCG 5ML (100MCG/ML) SYRINGE As Ordered ONE (12:33)
--- NOTE | 2021-02-15 14:07 | ROOPDOC ---
[facility] Report Of Operation Report of Operation DATE OF PROCEDURE: 02/15/21 PREPROCEDURE DIAGNOSES: right breast cancer POSTPROCEDURE DIAGNOSES: right breast cancer PROCEDURE: right breast lumpectomy with intraop wire placement and injection of the blue dye into right breast, right setinel lymph node biopsy with frozen section SURGEON: Dr Cee Munoz ANESTHESIA: general ESTIMATED BLOOD LOSS: Approximately 25 mL. COMPLICATIONS: none REMARKS: frozen section was negative x4 hence no ALND was done, lumpectomy specimen showed wire and the clip, additional medial margin was taken DESCRIPTION OF PROCEDURE: INDICATIONS: Ms. Mcwilliams is a 60-year-old woman who was found to have a suspicious right breast mass on screening mammogram. This was evaluated with right breast US and sonographic correlate was found. US guided biopsy of the lesion came back as IDC, ER +, IN -, HER-2 +. She underwent neoadjuvant treatment and had complete response on rpt mammogram and US. She opted for breast conservative surgery with right sentinel lymph node biopsy with frozen section. I explained to the patient that if frozen section finds viable tumor in her lymph nodes, she will need completion axillary dissection which will be done at the time of index surgery. She was medically cleared for surgery by her primary care doctor. Risks and possible complications of surgical procedure including bleeding, infection, lymphedema, poor cosmetic results, need for additional surgery and injury to surrounding structures were explained to the patient and she wished to proceed. Consent was signed. My initials were placed on the operative site. Subcutaneous injection of 5000 units of heparin was done in Preop. The injection of radioactive tracer was done in radiology department preoperatively. Lymphoscintigraphy imaging was reviewed in preop. DETAILS: Patient was taken to the operating room and placed on the operating room table. A sign in was called stating patients name, date of and the procedure to be done. Preoperative antibiotics were infused. Smooth induction of general anesthesia was done. Patients hands were extended on arm rests. Care was taken not to over extend the arms. Pillow was placed under the knees and a foam was placed under the heels. Sequential compression devices were placed and assured to function correctly. Procedure was started with right breast intraop wire localization. Appropriate time out was done and patients name, date of , and the procedure to be done were confirmed. Right breast was cleaned by me. Intraoperative ultrasound was used to confirm location of the Hydromark clip. Location of the clip was marked on the skin as well. 21 G Kopans Breast Lesion Localization Needle was used to place 25 cm wire through the lesion. The end of the wire was passed a centimeter deep. The images were captured confirming adequate placement of the localizing wire. Striker Off assisted with the wire placement. Next, patients right breast and axilla were prepped and draped in the usual fashion. Care was taken not to displace the wire. Appropriate time out was done again prior second part of the procedure. Patients name, date of , and the procedure to be done were confirmed. Procedure was started with injection of 4 ml of undiluted blue dye into the right upper outer quadrant of the breast. The breast was massaged for a few minutes to allow propagation of the blue dye into the axilla. Next, out attention was turned toward the axilla. Neoprobe was used to locate area of maximum intensity of the signal. Local anesthetic using 1% lidocaine and 0.25 % Marcaine 50/50 mix was injected. An incision was made with scalpel number 15 at the inferior aspect of axillary hair line in the right axilla where the maximum signal was identified. The sharp and blunt dissection was continued through the subcutaneous adipose tissue. Clavipectoral fascia was opened. Neoprobe was used to guide the dissection. First sentinel lymph node was identified and excised. The ex-vivo 10 second count was 15868. This node was not blue. Second sentinel lymph node was identified and excised as well. The ex-vivo 10 second count was 10275. This node has darker center, possibly from the blue dye. Third sentinel lymph node was identified and excised as well. The ex-vivo 10 second count was 2772. This node was located deep in medial axilla and was relatively large. This node was not blue. There was one palpable lymph node noted which did not have any signal and was not blue. This was excised as well. The specimens were labeled with patients name and sent to pathology for frozen section. No additional lymph nodes with high radioactive signal were identified. The 10 second count of the background was 3. Pathologist called into the operating room and stated that none of the sent lymph node contained visible cancer on frozen section. The remained of the lymph nodes will be sent for permanent evaluation. Since frozen section is negative, there is no need to do full right axillary lymph node dissection. Adequate hemostasis was assured. Additional local anesthetic was injected into surrounding tissues. Wound was irrigated. Clavipectoral fascia was closed with 3-0 Vicryl interrupted suture. At this time, our attention was turned toward the right breast lumpectomy. The cancer was far away from the nipple hence axillary incision approach was chosen. Through the previously made right low axillary incision dissection was carried toward the wire. Skin flaps were raised and the guide wire was carefully pulled into the wound. Dissection was carries along the wire until the previously marked on the skin area of target lesion location was encountered. At this point, wider excision of the tissue surrounding the wire was done. The Hydromark clip was identified in the tissue with intraoperative hockey stick ultrasound probe. The end of the wire was identified with palpation. The lumpectomy spec imen was carefully removed from the breast keeping its proper orientation and moved to the back table where margins were marked with the surgical inking kit following the standard colors recommendations. Specimen measured 7x6x3 cm. Specimen was then placed on the grid and placed in [employer] Specimen Imaging System. The image revealed the wire and the Hydromark in the specimen. The sp ecimen was labeled with patients name and right lumpectomy and sent to pathology for permanent evaluation. Since on the post biopsy mammogram, clip appeared slightly lateral to the cancer, and since cancer could not be seen on current imaging due to very good response to chemotherapy, decision was made to take additional medial margin. The new margin, defined as margin farthest away from lumpectomy cavity, was marked with black ink. This was labeled with patients information and sent to pathology for permanent evaluation. Wound was thoroughly irrigated. Adequate hemostasis was assured. Additional local anesthetic was injected into surrounding tissues. Clips were placed to kelton the cavity. space was approximated with 2-0 Vicryl. The dermis was closed with 3-0 Vicryl and skin was closed with 4-0 Monocryl. Surgical glue was placed over the incision. Patient emerged from the anesthesia without any problems. Fluffs were placed over the operative site and patients chest was wrapped snuggly in the AHSAN wrap. Sponge and instrument counts were done and were correct. Patient tolerated procedure well and was taken to recovery unit in stable condition. CEE MUNOZ DO Feb 15, 2021 14:07
[2021-02-15] MEDS ORDERED: ROXI1TAB2 PO (14:17)
[2021-02-15] MEDS ORDERED: oxyCODONE 5MG TAB PO PRN ×2 (14:25→14:50)
[2021-02-15] MEDS ORDERED: fentaNYL 100 MCG/2 ML INJECTION (J3010) IV PRN (14:25)
[2021-02-15] MEDS ORDERED: LR 1,000 ML IV SCH (14:25)
[2021-02-15] MEDS ORDERED: ONDANSETRON 4MG/2ML VIAL IV PRN ×2 (14:25→14:50)
[2021-02-15] MEDS ORDERED: MEPERIDINE INJ 25 MG/ML VIAL (J2175) IV PRN (14:25)
[2021-02-15] MEDS ORDERED: ACETAMINOPHEN TAB 650MG DOSE (2X325MG) PO PRN (14:50)
[2021-02-15] MEDS ORDERED: DEXTROSE 50% 50 ML SYRINGE IV PRN (15:35)
[2021-02-15] MEDS ORDERED: GLUCAGON INJ 1MG VIAL SC PRN (15:35)
[2021-02-15] MEDS ORDERED: GLUCOSE 4GM CHEW TABLET PO PRN (15:35)
[2021-02-15 16:30] VITALS: BP 131/77
[2021-02-15] MEDS: NS 1,000 ML IV SCH (16:41)
[2021-02-15] MEDS: allopurinoL 100 MG TAB PO SCH (16:50)
[2021-02-15] MEDS: ESCITALOPRAM OXALATE 10 MG TAB (LEXAPRO) PO SCH (16:50)
[2021-02-15] MEDS: FERROUS SULFATE 325MG TAB PO SCH (16:50)
[2021-02-15 17:00] VITALS: BP 109/61
[2021-02-15] MEDS: HumaLOG INSULIN (NovoLOG) PER UNIT SC SCH (17:45)
[2021-02-15 18:00] VITALS: BP 117/52
[2021-02-15 18:42] VITALS: BP 113/61
--- NOTE | 2021-02-15 18:57 | REP ---
INDICATION: RIGHT BREAST CA. COMPARISON: None. TECHNIQUE/RADIOTRACER AND DOSE: This procedure was performed by Leigh Ann Regalado [facility], under the direct supervision of Dr. Fraire. Images were reviewed with Dr. Fraire prior to dictation. The risks and benefits of the procedure were explained to the patient and informed consent was obtained both orally and written. Directly prior to the start of the procedure, a formal timeout was done in the exam room. Using topical anesthetic and sterile technique 1.004 mCi of filtered Technetium-99m sulfur colloid was injected subdermally in 8 fractionated periareolar injections. FINDINGS: Images obtained 1 hour after injection show a dominant right axillary focus with 2 adjacent foci. IMPRESSION: There is a dominant right axillary focus, with 2 adjacent foci. <Electronically signed by Leigh Ann Regalado > 02/15/21 1012 <Electronically signed by Drew Fraire > 02/15/21 0780
[2021-02-15] MEDS ORDERED: HumaLOG INSULIN (NovoLOG) PER UNIT SC SCH (21:00)
[2021-02-15] MEDS ORDERED: SIMVASTATIN 40 MG TAB PO SCH (21:00)
[2021-02-15] MEDS ORDERED: FUROSEMIDE 80 MG TAB PO SCH (21:00)
[2021-02-15 22:00] VITALS: BP 130/68
--- NOTE | 2021-02-15 23:02 | HPEPDOC ---
General Date of Admission 02/15/21 Date of Service: Feb 15, 2021 Chief Complaint The patient is a 60-year-old female admitted with a reason for visit of Right Breast Cancer. Source: Patient History of Present Illness 60 year old female with history of right breast cancer diagnosed in sep 2020 finished chemo on 01/27/21, Morbid obesity, DM, HTN, HLD, hypothyroid, CKD stage 3, diastolic CHF was admitted for right breast surgery. Post surgery she was admitted for observation. Patient was seen int he PACU. Her pain was controlled about a 3/10 at the surgical site of right breast, dull aching in nature. She denied any nausea or vomiting. Denied any SOB. Home Medications Scheduled Acetaminophen (Tylenol Arthritis) 650 Mg Tablet.er, 1,000 MG PO DAILY, (Reported) Allopurinol (Allopurinol) 100 Mg Tablet, 300 MG PO DAILY, (Reported) Aspirin (Aspirin EC) 81 Mg Tablet.dr, 81 MG PO DAILY, (Reported) Bupropion Hcl (Bupropion Xl) 150 Mg Tab.er.24h, 450 MG PO QAM, (Reported) Calcium Carbonate/Vitamin D3 (Calcium 600 + Vit D 400 Softgl) 1 Each Capsule, 1 CAP PO BID, (Reported) Ergocalciferol (Vitamin D2) (Drisdol) 1,250 Mcg Capsule, 1,250 MCG PO DAILY, (Reported) Escitalopram Oxalate (Lexapro) 10 Mg Tablet, 10 MG PO DAILY, (Reported) Ferrous Sulfate (Ferrous Sulfate) 325 Mg Tablet.dr, 325 MG PO DAILY, (Reported) Furosemide (Lasix) 80 Mg Tablet, 80 MG PO BID, (Reported) Levothyroxine Sodium (Levothyroxine) 88 Mcg Capsule, 88 MCG PO DAILY, (Reported) Lovastatin (Lovastatin) 40 Mg Tablet, 40 MG PO QPM, (Reported) with food Magnesium Oxide (Magnesium) 500 Mg Capsule, 500 MG PO DAILY for constipation, (Reported) Metformin HCl (Metformin HCl ER) 500 Mg Tab.er.24h, 500 MG PO BID, (Reported) Metoprolol Succinate (Metoprolol Succinate) 50 Mg Tab.er.24h, 50 MG PO DAILY, (Reported) Omeprazole (Omeprazole) 20 Mg Capsule.dr, 20 MG PO DAILY, (Reported) Prochlorperazine Maleate (Prochlorperazine Maleate) 10 Mg Tablet, 10 MG PO Q8HP for Nausea and Vomitting Take 1 tablet by mouth every 8 hours as needed for nausea and vomitting [Potassium Elixir] , 20 MEQ PO BID, (Reported) Scheduled PRN Ondansetron HCl (Ondansetron HCl) 8 Mg Tablet, 8 MG PO Q8HP PRN for NAUSEA OR VOMITING Oxycodone HCl (Roxicodone) 5 Mg Tablet, 5 MG PO Q6HP PRN for pain Allergies Coded Allergies: Penicillins (Unverified Allergy, Unknown, ITCHING AND HIVES, 10/14/20) Past Medical History Medical History HYPERTENSION TYPE II DIABETES HYPERLIPIDEMIA ESOPHAGEAL REFLUX VITAMIN D DEFICIENCY HYPOTHYROIDISM OSTEOARTHRITIS GOUT OBESITY UNSPECIFIED ANEMIA DEPRESSION GRADE 1 LV DIASTOLIC DYSFUNCTION, MILD PULM HTN - ECHO 08/21 R BREAST DUCTAL CARCINOMA- ER+, DE-, HER2 + FINISHED CHEMO JANUARY 27 STAGE 3 CKD Surgical History LEFT BREAST BIOPSY TONSILLECTOMY ADENOIDECTOMY COLONOSCOPY/ BE - NEG - INGRID (REPEAT 10YRS) 8-12 BREAST BIOPSY R 5-12 R BREAST BIOPSY 09/22/19 PORT PLACEMENT Family History FATHER: 42 YRS, CORONARY ARTERY DISEASE MOTHER: 84 YRS, CANCER, MYELOMA, CORONARY ARTERY DISEASE, MA (AGE 50) BRO- AT 21, ANEURYSM, BRO - AT 52 - MA AFTER FOOT FRACTURE, HTN, DIABETES, KIDNEY FAILURE,OBESITY MATERNAL GRAND MOTHER: CANCER A-FIB/CHADSVASC A-FIB History Current/History of A-Fib/PAF?: No Review of Systems Constitutional: Denies: Chills, Fever, Night Sweats Eyes: Denies: Pain, Vision change ENT: Denies: Head Aches, Ear Pain, Dysphagia Skin: Denies: Rash, Lesions, Breakdown Pulmonary: Denies: Dyspnea, Cough Cardiovascular: Denies: Chest Pain, Palpitations, Orthopnea, Paroxysmal Noc. Dyspnea, Lt Headedness Gastrointestinal: Denies: Nausea, Vomiting, Abdominal Pain, Diarrhea Physical Examination General Exam: Positive: Alert, Cooperative, No Acute Distress Eye Exam: Positive: PERRLA, Conjunctiva & lids normal, EOMI; Negative: Sclera icteric ENT Exam: Positive: Atraumatic, Mucous membr. moist/pink, Pharynx Normal Chest Exam: Positive: Clear to auscultation, Normal air movement Heart Exam: Positive: Rate Normal, Regular Rhythm, Normal S1, Normal S2; Negative: Murmurs, Rubs Abdomen Exam: Positive: Normal bowel sounds, Soft; Negative: Tenderness, Hepatospenomegaly Extremity Exam: Positive: Edema; Negative: Clubbing, Cyanosis Vital Signs Vital Signs Date Time Temp Pulse Resp B/P (MAP) Pulse Ox O2 Delivery O2 Flow Rate FiO2 02/15/21 14:55 68 18 145/76 (99) 97 Nasal Cannula 2.0 02/15/21 14:50 97.7 Laboratory Data Labs 24H Laboratory Tests 2 02/15/21 09:25: Bedside Glucose (Misc Panel) 135H Assessment/Plan 60 year old female with history of right breast cancer diagnosed in sep 2020 finished chemo on 01/27/21, Morbid obesity, DM, HTN, HLD, hypothyroid , CKD stage 3, diastolic CHF was admitted for right breast surgery. Post surgery she was admitted for observation. Right breast invasive ductal carcinoma ER +, DE- and HER2+, s/p chemo Now Status post right lumpectomy, right sentinel lymph node biopsy with frozen section (negative) done on 02/15/21 pain control with tylenol, tramadol and oxycodone rest as per surgeon Diastolic CHF with fluid overload will resume lasix bid tomorrow Diabetes lispro AC and HS Hypothyroid synthroid Hypertension metoprolol Depression.anxiety lexapro, bupropion HLD statin Gout allopurinol. Plan / VTE VTE Prophylaxis Ordered?: Yes NELLA ZHAO MD Feb 15, 2021 15:42
[2021-02-16 02:00] VITALS: BP 103/58
[2021-02-16 06:00] VITALS: BP 107/58
[2021-02-16] MEDS ORDERED: LEVOTHYROXINE 88MCG TABLET (0.088 MG) PO SCH (06:00)
[2021-02-16 06:59] LABS: HEMATOCRIT 27.4 % (36.0-47.0); HEMOGLOBIN 8.9 g/dl (12.0-15.5); MEAN CORPUSCULAR HEMOGLOBIN 31.7 pg (27.0-33.0); MEAN CORPUSCULAR HGB CONC 32.5 g/dl (32.0-36.5); MEAN CORPUSCULAR VOLUME 97.5 fl (80.0-96.0); PLATELET COUNT, AUTOMATED 283 10^3/uL (150-450); RED BLOOD COUNT 2.81 10^6/uL (4.00-5.40); WHITE BLOOD COUNT 9.7 10^3/uL (4.0-10.0)
[2021-02-16 07:16] LABS: BLOOD UREA NITROGEN 18 MG/DL (7-18); CALCIUM LEVEL 8.4 MG/DL (8.8-10.2); CARBON DIOXIDE LEVEL 29 MEQ/L (21-32); CHLORIDE LEVEL 105 MEQ/L (98-107); GLOMERULAR FILTRATION RATE > 60.0 (>45); GLUCOSE, FASTING 151 MG/DL (70-100); POTASSIUM SERUM 3.6 MEQ/L (3.5-5.1); SODIUM LEVEL 139 MEQ/L (136-145)
--- NOTE | 2021-02-16 07:52 | IPNPDOC ---
Subjective General Date Seen: Feb 16, 2021 Subject Chief Complaint/History The patient is a 60-year-old female admitted with a reason for visit of Right Breast Cancer, s/p R lumpectomy and R SLNBx with frozen section, Frozen was negative. Patient was admitted postop due to desaturations. She is doing well this morning. She ate some food last night and kept it down. She voided without any issues. Current Medications Current Medications Current Medications Medications (Trade) Dose Ordered Sig/Johnathon Route PRN Reason Start Time Stop Time Status Last Admin Dose Admin Acetaminophen (Tylenol Tab) 650 mg Q6H PRN PO MILD PAIN (PS 1-4) 02/15/21 14:50 Allopurinol (Zyloprim) 300 mg DAILY PO 02/15/21 09:00 Bupropion HCl (Wellbutrin Xl) 450 mg QAM PO 02/16/21 09:00 Dextrose (Dextrose 50%) 25 ml ASDIRECTED PRN IV SEE LABEL COMMENTS 02/15/21 15:35 Escitalopram Oxalate (Lexapro) 10 mg DAILY PO 02/15/21 09:00 Fentanyl Citrate (Sublimaze) 25 mcg Q5MP PRN IV PAIN LEVEL 5-10 02/15/21 14:25 02/15/21 16:25 DC Ferrous Sulfate (Ferrous Sulfate) 325 mg DAILY PO 02/15/21 09:00 Furosemide (Lasix) 80 mg BID PO 02/15/21 21:00 02/15/21 15:42 DC Glucagon (Glucagon) 1 mg ASDIRECTED PRN SC SEE LABEL COMMENTS 02/15/21 15:35 Glucose (Glucose) 16 GM ASDIRECTED PRN PO SEE LABEL COMMENTS 02/15/21 15:35 Insulin Human Lispro (HumaLOG INSULIN) See Protocol Table AC SC 02/15/21 17:30 02/15/21 17:45 Insulin Human Lispro (HumaLOG INSULIN) See Protocol Table QHS SC 02/15/21 21:00 Lactated Ringer's 1,000 ml @ 100 mls/hr Q10H IV 02/15/21 14:25 02/15/21 16:25 DC Levothyroxine Sodium (Synthroid) 88 mcg DAILY@06 PO 02/16/21 06:00 02/16/21 05:29 Meperidine HCl (Demerol) 12.5 mg Q5MP PRN IV SHIVERING 02/15/21 14:25 02/15/21 16:25 DC Metoprolol Succinate (TopROL XL) 50 mg DAILY PO 02/16/21 09:00 Omeprazole (PriLOSEC) 20 mg DAILY PO 02/16/21 09:00 Ondansetron HCl (ZOFRAN INJection) 4 mg Q4H PRN IV NAUSEA OR VOMITING 02/15/21 14:50 Ondansetron HCl (ZOFRAN INJection) 4 mg Q4HP PRN IV NAUSEA OR VOMITING 02/15/21 14:25 02/15/21 16:25 DC Oxycodone HCl (Roxicodone, Oxyir) 5 mg ASDIRECTED PRN PO PAIN LEVEL 1-4 02/15/21 14:25 02/15/21 16:25 DC Oxycodone HCl (Roxicodone, Oxyir) 5 mg Q6HP PRN PO PAIN LEVEL 5-10 02/15/21 14:50 Simvastatin (Zocor) 40 mg QPM PO 02/15/21 21:00 02/15/21 21:00 Sodium Chloride 1,000 ml @ 50 mls/hr Q20H IV 02/15/21 15:00 02/15/21 16:41 Allergies Coded Allergies: Penicillins (Unverified Allergy, Unknown, ITCHING AND HIVES, 10/14/20) Objective Physical Examination Examination GENERAL APPEARANCE:Patient seen, laying in bed, awake, alert, and oriented. Comfortable, in no acute distress BREAST: Right axillary incision is well approximated. Blue is in place. Axilla is soft without palpable hematoma. Right lateral breast is soft without hematoma. There is mild bruising in the inferior portion of the breast. ROME wrap was removed HEENT: Normocephalic, atraumatic. LUNGS: Breathing comfortably on room air. When entered the room. Patient was at 84% saturation. However , after taking the breast. She was in mid 90s HEART: No tachycardia ABDOMEN: Abdomen is nondistended EXTREMITIES: Spontaneously moves all 4 extremities Vital Signs Vital Signs Date Time Temp Pulse Resp B/P (MAP) Pulse Ox O2 Delivery O2 Flow Rate FiO2 02/16/21 06:00 95.5 59 20 107/58 (74) 93 Nasal Cannula 2.0 I&Os I&O- Last 24 Hours up to 6 AM 02/16/21 06:00 Intake Total 2825 ml Output Total 425 ml Balance 2400 ml Laboratory Data Labs 24H Laboratory Tests 2 02/15/21 09:25: Bedside Glucose (Misc Panel) 135H 02/16/21 06:32: Nucleated Red Blood Cells % (auto) 0.2H, Anion Gap 5L, Glomerular Filtration Rate > 60.0, Calcium Level 8.4L CBC/BMP Laboratory Tests 02/16/21 06:32 Impression 60-year-old woman with morbid obesity and numerous comorbidities including diabetes and CKD, status post right lumpectomy, right sentinel lymph node biopsy with frozen section (negative) done on 02/15/21, admitted postop due to desaturations in PACU. Patient is recovering well today, Rome wrap was removed - monitor oxygenation, wean off O2 - pain control - ambulate - stopped fluids this AM - diabetic diet - IS - Ok to keep ROME off - please give patient my postop instructions, this may need to be faxed from PACU 2 - discharge planning WHEN OK WITH MEDIAL TEAM, greatly appreciate medical team help in taking care of this patient - case discussed with Nursing staff Plan / VTE VTE Prophylaxis Ordered?: Yes CEE MUNOZ DO Feb 16, 2021 07:52
[2021-02-16] MEDS: HumaLOG INSULIN (NovoLOG) PER UNIT SC SCH (08:58)
[2021-02-16] MEDS: allopurinoL 100 MG TAB PO SCH (08:58)
[2021-02-16] MEDS ORDERED: METOPROLOL SUCC (TopROL XL) 50MG **XL** TAB PO SCH (09:00)
[2021-02-16] MEDS ORDERED: OMEPRAZOLE 20 MG CAP PO SCH (09:00)
[2021-02-16] MEDS ORDERED: buPROPion **XL** TABLET 150MG (WELLBUTRIN XL) PO SCH (09:00)
[2021-02-16 09:01] VITALS: BP 13/58
[2021-02-16] MEDS: FERROUS SULFATE 325MG TAB PO SCH (09:01)
[2021-02-16] MEDS: ESCITALOPRAM OXALATE 10 MG TAB (LEXAPRO) PO SCH (09:01)
[2021-02-16] MEDS: NS 1,000 ML IV SCH (09:04)
[2021-02-16 10:00] VITALS: BP 115/56
--- NOTE | 2021-02-16 11:12 | IPNPDOC ---
Subjective Date Seen The patient was seen on 02/16/21. Subjective Chief Complaint/HPI No complaints this morning . feeling well ready to go home. Objective Physical Examination General Exam: Positive: Alert, Cooperative, No Acute Distress Eye Exam: Positive: PERRLA, Conjunctiva & lids normal, EOMI; Negative: Sclera icteric ENT Exam: Positive: Atraumatic, Mucous membr. moist/pink, Pharynx Normal Chest Exam: Positive: Clear to auscultation, Normal air movement Heart Exam: Positive: Rate Normal, Regular Rhythm, Normal S1, Normal S2; Negative: Murmurs, Rubs Abdomen Exam: Positive: Normal bowel sounds, Soft; Negative: Tenderness, Hepatospenomegaly Extremity Exam: Positive: Edema; Negative: Clubbing, Cyanosis Assessment /Plan Assessment 60 year old female with history of right breast cancer diagnosed in sep 2020 finished chemo on 01/27/21, Morbid obesity, DM, HTN, HLD, hypothyroid , CKD stage 3, diastolic CHF was admitted for right breast surgery. Post surgery she was admitted for observation. Right breast invasive ductal carcinoma ER +, [place]- and HER2+, s/p chemo Now Status post right lumpectomy, right sentinel lymph node biopsy with frozen section (negative) done on 02/15/21 pain control with tylenol and oxycodone Dr hardin,s written instructions given to patient for wound care and activit y. Diastolic CHF with fluid overload will resume lasix bid Diabetes resume home meds Hypothyroid synthroid Hypertension metoprolol Depression.anxiety lexapro, bupropion HLD statin Gout allopurinol. Morbid obesity complicating care Dispo: Home, follow up with Dr Hardin and oncology Plan/VTE VTE Prophylaxis Ordered?: Yes VS, I&O, 24H, Fishbone Vital Signs/I&O Vital Signs Date Time Temp Pulse Resp B/P (MAP) Pulse Ox O2 Delivery O2 Flow Rate FiO2 02/16/21 10:00 96.9 57 18 115/56 (75) 92 Nasal Cannula 2.0 I&O- Last 24 Hours up to 6 AM 02/16/21 06:00 Intake Total 2825 ml Output Total 425 ml Balance 2400 ml Laboratory Data 24H LABS Laboratory Tests 2 02/16/21 06:32: Nucleated Red Blood Cells % (auto) 0.2H, Anion Gap 5L, Glomerular Filtration Rate > 60.0, Calcium Level 8.4L CBC/BMP Laboratory Tests 02/16/21 06:32 NELLA ZHAO MD Feb 16, 2021 11:12
--- NOTE | 2021-02-16 11:18 | REP ---
INDICATION: RIGHT SENTINEL BIOPSY. COMPARISON: NA TECHNIQUE: Dr. Dobson independently used ultrasound guidance to place a localizing needle adjacent to a biopsy clip placed during her acquisition of an ultrasound-guided breast biopsy performed at an earlier time. FINDINGS: The specimen radiograph shows a biopsy clip adjacent to the localizing needle placed by Dr. Dobson. IMPRESSION: As above RECOMMENDATION: As above <Electronically signed by Aman Meade > 02/16/21 1116
[2021-02-23] MEDS ORDERED: LISI20TA33 PO (09:17)
== END 2021-02-16 11:58 | disposition home or self-care (01) ==
LOC: M SDC 06:31 → M MS5PR 14:51 → M SDC 02-16 12:05
PROVIDERS: ADMIT Surgery; ATTEND Surgery
DX: C50.911 Malignant neoplasm of unspecified site of right female breast (principal); I13.0 Hypertensive heart and chronic kidney disease with heart failure and stage 1 through stage 4 chronic kidney disease, or unspecified chronic kidney disease; E11.22 Type 2 diabetes mellitus with diabetic chronic kidney disease; E78.2 Mixed hyperlipidemia; K21.9 Gastro-esophageal reflux disease without esophagitis; E55.9 Vitamin D deficiency, unspecified; E03.9 Hypothyroidism, unspecified; M19.90 Unspecified osteoarthritis, unspecified site; M10.9 Gout, unspecified; E66.01 Morbid (severe) obesity due to excess calories; Z68.43 Body mass index [BMI] 50.0-59.9, adult; D63.8 Anemia in other chronic diseases classified elsewhere; F32.9 Major depressive disorder, single episode, unspecified; I50.30 Unspecified diastolic (congestive) heart failure; I27.20 Pulmonary hypertension, unspecified; N18.31 Chronic kidney disease, stage 3a; I25.2 Old myocardial infarction; Z13.79 Encounter for other screening for genetic and chromosomal anomalies; Z92.3 Personal history of irradiation; Z79.899 Other long term (current) drug therapy; Z79.84 Long term (current) use of oral hypoglycemic drugs; Z79.82 Long term (current) use of aspirin; Z88.0 Allergy status to penicillin
CPT/HCPCS: 19125; 36415; 38525; 76942; 78195; 80048; 85027; 86850; 86900; 86901; 88304; 88305; 88307; 88342; A9541; J0131; J0330; J1100; J1170; J1200; J1644; J2250; J2370; J2405; J3010; Q9968

== ENCOUNTER → 2021-02-23 | Outpatient (CLI) | payer OTHER ==
[~2021-02-23] MED LIST changes: -CLINDAMYCIN 900 MG in IV 1 EA IV ONE; -HEPARIN SOD (PORCINE) 5000UNITS/ML 1ML VIAL/SYRINGE SQ ONE; +LISI20TA33 PO; -LR 1,000 ML IV ONE; +ROXI1TAB2 PO
--- NOTE | 2021-02-23 11:26 | REPPI ---
INDICATION: R06.02 SHORTNESS OF BREATH. COMPARISON: Multiple latest 02/10/2021 TECHNIQUE: PA and lateral FINDINGS: The superior mediastinal structures are midline. The cardiac silhouette is unremarkable in size, shape, and position. The diaphragmatic surfaces of the lungs are regular, and the costophrenic angles are clear. The pulmonary velazquez are clear. The imaged osseous structures are intact. The tip of the MediPort device remains in the superior vena cava. IMPRESSION: There is no acute cardiopulmonary disease. No significant change from the prior exam. <Electronically signed by Aman Meade > 02/23/21 1127
== END ==
LOC: M PLAIMG 10:34
PROVIDERS: ATTEND Nurse Practitioner Family
DX: R06.02 Shortness of breath (principal)

== ENCOUNTER → 2021-03-08 | Outpatient (REF) | payer OTHER | LOC: M LAB REF 16:55 | PROVIDERS: ATTEND Internal Medicine Nephrology | DX: E83.42 Hypomagnesemia (principal) ==

== ENCOUNTER → 2021-03-10 | Outpatient (CLI) | payer OTHER ==
--- NOTE | 2021-03-10 11:02 | RADONC.CN ---
Radiation Oncology Hx/Consult Radiation Oncology Consult Date of Service: Mar 10, 2021 Pt Identifier Galina Mcwilliams is a 60 year old female with a screening mammogram detected right breast cancer [id number] ER/HER2+ SC- Grade 3 stage IA who underwent NAC completed 01/27/21 and subsequent lumpectomy and SLNB on 02/15/21 showing [id number]. She is seen for consideration of adjuvant RT. Diagnosis/Treatment History Oncologic History 08/25/20 Mammogram with 1 cm nodule in the lower outer right breast 09/09/20 US confirming 09/22/20 Diagnostic mammo and biopsy showing IDC grade 3 ER/HER2+ SC- 01/27/21 Completed NAC Taxol + Herceptin 02/15/21 Lumpectomy and SLNB ([facility]) [id number](sn)M0 Breast history: Menses @11 Menopausal @ 48 No OCP No HRT Interval History Galina feels well. She has some residual tenderness in the right breast and axilla. No impaired ROM or swelling in the RUE. She Past Medical History: Anxiety DMII HTN CKD CVA Past Surgical History: Tonsillectomy Family History: Mother myeloma Social History: Never smoker Drinks ~ 2 drinks per week Allergies / Meds Allergies: Coded Allergies: Penicillins (Unverified Allergy, Unknown, ITCHING AND HIVES, 10/14/20) Home Meds Active Scripts Oxycodone HCl (Roxicodone) 5 Mg Tablet, 5 MG PO Q6HP PRN for pain MDD 4 Tablet(s) for 3 Days, #10 TAB Prov:CEE MUNOZ DO 02/15/21 Prochlorperazine Maleate (Prochlorperazine Maleate) 10 Mg Tablet, 10 MG PO Q8HP for Nausea and Vomitting, #30 TAB 3 Refills Take 1 tablet by mouth every 8 hours as needed for nausea and vomitting Prov:TEJINDER WEST MD 10/14/20 Ondansetron HCl (Ondansetron HCl) 8 Mg Tablet, 8 MG PO Q8HP PRN for NAUSEA OR VOMITING, #30 TAB 3 Refills Prov:TEJINDER WEST MD 10/14/20 Reported Medications Lisinopril (Lisinopril) 20 Mg Tablet, 1 TAB PO DAILY for 30 Days, #30 TAB 02/23/21 Ferrous Sulfate (Ferrous Sulfate) 325 Mg Tablet.dr, 325 MG PO DAILY, TAB 02/08/21 Metformin HCl (Metformin HCl ER) 500 Mg Tab.er.24h, 500 MG PO BID 02/08/21 Acetaminophen (Tylenol Arthritis) 650 Mg Tablet.er, 1000 MG PO DAILY, TAB 12/02/20 Aspirin (Aspirin EC) 81 Mg Tablet.dr, 81 MG PO DAILY, TAB 10/07/20 Calcium Carbonate/Vitamin D3 (Calcium 600 + Vit D 400 Softgl) 1 Each Capsule, 1 CAP PO BID for 30 Days, #60 CAP 10/07/20 Magnesium Oxide (Magnesium) 500 Mg Capsule, 500 MG PO DAILY for constipation for 30 Days, #30 CAP 10/07/20 Ergocalciferol (Vitamin D2) (Drisdol) 1,250 Mcg Capsule, 1250 MCG PO DAILY, CAP 10/07/20 Bupropion Hcl (Bupropion Xl) 150 Mg Tab.er.24h, 450 MG PO QAM for 30 Days, #30 TAB 10/07/20 Furosemide (Lasix) 80 Mg Tablet, 80 MG PO BID for 30 Days, #30 TAB 10/07/20 Allopurinol (Allopurinol) 100 Mg Tablet, 300 MG PO DAILY for 30 Days, #30 TAB 10/07/20 Metoprolol Succinate (Metoprolol Succinate) 50 Mg Tab.er.24h, 50 MG PO DAILY for 30 Days, #30 TAB 10/07/20 Levothyroxine Sodium (Levothyroxine) 88 Mcg Capsule, 88 MCG PO DAILY, CAP 10/07/20 Omeprazole (Omeprazole) 20 Mg Capsule.dr, 20 MG PO DAILY for 30 Days, #30 CAP 10/07/20 Escitalopram Oxalate (Lexapro) 10 Mg Tablet, 10 MG PO DAILY for 30 Days, #30 TAB 10/07/20 Lovastatin (Lovastatin) 40 Mg Tablet, 40 MG PO QPM for 30 Days, #30 TAB with food 10/07/20 [Potassium Elixir] No Conflict Check, 20 MEQ PO BID 10/07/20 Review of Systems Constitutional: Denies: Chills, Fever, Night Sweats Eyes: Denies: Pain, Vision change HEENT: Denies: Head Aches, Dysphagia, Sore Throat Skin: Denies: Rash, Lesions, Bruising Pulmonary: Denies: Dyspnea, Cough Cardiovascular: Denies: Chest Pain, Palpitations, Edema Breast: Reports: Breast Skin Changes (Redness right breast post op), Breast Pain or Tenderness; Denies: New Breast Lumps / Masses, Nipple Retraction, Nipple Discharge, Other Breast Complaints Gastrointestinal: Denies: Nausea, Vomiting, Abdominal Pain, Diarrhea Genitourinary: Denies: Dysuria, Frequency, Incontinence Hematologic: Denies: Bruising, Petecchia, Enlarged Lymph Nodes Musculoskeletal: Denies: Neck pain, Back pain Neurological: Denies: Weakness, Numbness, Incoordination Psych: Reports: Mood Normal; Denies: Memory Issues, Thoughts of Self Harm Vital Signs Ht 62" Wt 319 lbs BMI 52 T 97.8 P 67 RR 20 BP 134/77 O2 97% Pain 5 Fatigue 3 General Exam: Positive: Alert, Cooperative, No Acute Distress Eye Exam: Positive: PERRLA, EOMI ENT EXAM: Positive: Atraumatic Neck Exam: Positive: Supple; Negative: Lymphadenopathy Chest Exam: Positive: Clear to auscultation Heart Exam: Positive: Rate Normal Breast Exam: Positive: Symmetric Bilaterally (Very large ptotic breasts. ), Skin Changes (Dependent skin of right breast is pink and mildly warm. No induration or fluctuance ); Negative: Lumps or Masses (Palpable surgical site lateral right breast. ), Nipple Retraction, Nipple Discharge Abdomen Exam: Positive: Soft; Negative: Tenderness Extremity Exam: Positive: Edema Neuro Exam: Positive: Normal Gait, Normal Speech, Cranial Nerves 3-12 NL Psych Exam: Positive: Mental status NL Diagnostic and Laboratory Diagnostic Review Radiologic images, relevant labs and pathology reports were personally reviewed and discussed with Ms. Mcwilliams. Assessment and Plan Impression Ms. Mcwilliams is a 60 year old female with a history of screening mammogram detected right breast cancer [id number] ER/HER2+ SC- Grade 3 stage IA who underwent NAC completed 01/27/21 and subsequent lumpectomy and SLNB on 02/15/21 showing [id number]. She is seen for consideration of adjuvant RT. Stage Right lower outer breast cancer [id number]--> ypT0N0(sn)M0 ER/HER2+ SC- Grade 3 Stage IA Performance Status ECOG 1 Plan We had an extensive discussion with Ms. Mcwilliams regarding the diagnosis at hand and available therapeutic options. She has some dependent breast edema and mild redness on the right, no systemic signs of infection. I encouraged her to reach out if this worsens or is associated with mark breast pain as she may be brewing mastitis. I discussed the excellent response mounted to NAC on final pathology and the ongoing question of whether patients like her benefit from adjuvant RT. I explained that as it stands adjuvant RT decision making is based on maximal stage pre-NAC. NSABP B-51 is ongoing and will eventually answer this question but current recommendations are against omitting RT. In her situation I recommend WBI 40 Gy in 15 fractions followed by 10 Gy in 5 fraction tumor bed boost. Her breasts are very large and pendulous, so I did explain that she may experience increased skin toxicity as a result of large separation. We may have to make some [id number] compromises on final dosimetry to accomplish out treatment goals. She is willing to accept this risk. We discussed the logistics of receiving radiation therapy in detail including the need for a 1-time planning session. This can occur in the next 1-2 weeks. We reviewed the acute and late effects of RT, fatigue and skin reaction, late pigmentation changes and fibrosis. After discussing the risks, benefits and alternatives to radiation therapy, Ms. Mcwilliams was amenable to pursuing radiotherapy. All questions were answered to the patient's satisfaction. We instructed the patient that if there were any questions,concerns or changes in clinical status in the interim to contact us. Recommendations Adjuvant WBI 40 Gy in 15 fractions + 10 Gy in 5 fraction tumor bed boost Simulation in the next 1-2 weeks Patient will monitor right breast skin/pain, call if worsening, will give antibiotics Billing Statement Total time of [47] minutes was spent preparing for the visit [3], obtaining HPI [5], examining the patient [5], reviewing diagnostic tests [6], discussing management options [16], coordinating care [2], and writing this note [10]. MORENO VU MD Mar 10, 2021 11:02
== END ==
LOC: M ONCR 09:08
PROVIDERS: ATTEND General Practice
DX: C50.911 Malignant neoplasm of unspecified site of right female breast (principal); E11.9 Type 2 diabetes mellitus without complications; F41.9 Anxiety disorder, unspecified; I12.9 Hypertensive chronic kidney disease with stage 1 through stage 4 chronic kidney disease, or unspecified chronic kidney disease; N18.9 Chronic kidney disease, unspecified; Z79.82 Long term (current) use of aspirin; Z79.84 Long term (current) use of oral hypoglycemic drugs; Z79.899 Other long term (current) drug therapy; Z86.73 Personal history of transient ischemic attack (TIA), and cerebral infarction without residual deficits; Z88.0 Allergy status to penicillin

== ENCOUNTER → 2021-03-14 | Outpatient (CLI) | payer OTHER ==
--- NOTE | 2021-03-15 07:39 | ECHO ---
ECHOCARDIOGRAM DATE OF PROCEDURE: 03/14/2021 Age: 60 Gender: Female Height: 64 inches Weight: 319 pounds Body Surface Area: 2.38 meters squared Outpatient REFERRING PHYSICIAN: Dr. Sang Laguna INDICATION: Malignant neoplasm/potentially cardiotoxic chemotherapy MEASUREMENTS: 2D Measurements: RV - 5.1 cm LV - 5.3 cm Septum 1.2 cm Posterior wall 1.2 cm Aortic Root 4.3 cm LA - 4.2 cm LVEF 65% Doppler Measurements: AV - 1.4 m/s LVOT - 0.8 m/s LVOT diameter 2.1 cm MV-E 88, A 94, E/A ratio 1 Early mitral deceleration time 190 msec E prime medial 6.6, A prime medial 9.2, E prime lateral 9.6 Average E/E prime ratio 10.4/PCWP - 15.4 mmHg PV - 1.03 m/s Pulmonary artery acceleration time 79 msec RVSP 65-70 mmHg IVC - 2.7 cm COMMENTS: Normal sinus rhythm without interventricular conduction disturbance. Technically challenging study in light of the patient's body habitus but diagnostically useful information was still obtained. M-mode and 2-dimensional echocardiography was performed with pulse, continuous wave, color flow, and tissue Doppler studies. Global longitudinal strain was also assessed. Mild symmetrical left ventricular hypertrophy with septal wall motion abnormality believed to be due to right ventricular pressure overload yet preserved global resting systolic function. Mildly dilated left atrium with grade 1 left ventricular (LV) diastolic dysfunction and current estimated mean left atrial pressure upper limits of normal. Moderately dilated right heart chambers with normal right ventricular free wall motion but Doppler evidence of severe pulmonary hypertension. Dilated inferior vena cava (IVC) with less than 50% respiratory collapse in keeping with an elevated central venous pressure. Mildly dilated aortic root. Normal-appearing aortic valve without stenosis and only trace insufficiency related to dilated aortic root. Normal-appearing mitral valvular apparatus with very mild insufficiency. Normal-appearing tricuspid valve with at least [id number] insufficiency. No apparent intracardiac mass or pericardial effusion. Global longitudinal strain measured 17.2% but is academic with preserved global resting left ventricular systolic function as described above. Guarded prognosis related to her severe pulmonary hypertension. MTDD
== END ==
LOC: M CARPUL 09:51
PROVIDERS: ATTEND Specialist
DX: C50.919 Malignant neoplasm of unspecified site of unspecified female breast (principal)

== ENCOUNTER → 2021-03-17 | Outpatient (REF) | payer OTHER | LOC: M SFHCWAGY 14:02 | PROVIDERS: ATTEND Surgery | DX: N64.89 Other specified disorders of breast (principal) ==

== ENCOUNTER 2021-03-21 14:43 | Outpatient (RCR) | payer OTHER ==
[2021-03-28] MEDS ORDERED: CEPH500C PO (08:49)
== END 2021-04-02 ==
LOC: M ONCR 14:43
PROVIDERS: ATTEND General Practice
DX: C50.511 Malignant neoplasm of lower-outer quadrant of right female breast (principal)

== ENCOUNTER → 2021-03-25 | Outpatient (REF) | payer OTHER ==
[~2021-03-25] MED LIST changes: +CEPH500C PO
== END ==
LOC: M SFHCWAGY 12:45
PROVIDERS: ATTEND Surgery
DX: N64.89 Other specified disorders of breast (principal)

== ENCOUNTER 2021-04-29 14:12 | Outpatient (RCR) | payer OTHER ==
[~2021-04-29 14:12] MED LIST changes: +FLUC100T PO
[2021-05-11] MEDS ORDERED: POTA20EL PO (11:29)
[2021-05-11] MEDS ORDERED: ANAS1TAB2 PO (11:54)
== END 2021-05-03 ==
LOC: M ONCR 14:12
PROVIDERS: ATTEND General Practice
DX: C50.511 Malignant neoplasm of lower-outer quadrant of right female breast (principal)

== ENCOUNTER → 2021-05-05 | Outpatient (CLI) | payer OTHER ==
--- NOTE | 2021-05-05 10:10 | RADENCPD ---
Date/Time of Encounter Date of Encounter: May 05, 2021 Time of Encounter: 09:56 Encounter Galina came in for a skin check today. She has been noticing increased sloughing in the right IMF. On exam there is confluent moist desquamation in the right IMF, no active re- epithelialization at this time. There is erythema of right breast. No evidence of yeast. Assessment: CTCAE grade 2 skin reaction. Expect healing to commence in the coming week Plan: Continue to minimize friction, complete fluconazole as planned. Follow up in 1 week for skin check. MORENO VU MD May 05, 2021 10:10
== END ==
LOC: M ONCR 09:11
PROVIDERS: ATTEND General Practice
DX: C50.511 Malignant neoplasm of lower-outer quadrant of right female breast (principal); Z92.3 Personal history of irradiation

== ENCOUNTER → 2021-05-05 | Outpatient (CLI) | payer OTHER ==
[2021-05-05 11:10] LABS: HEMOGLOBIN A1c 6.2 %
[2021-05-05 11:26] LABS: ALBUMIN 3.5 GM/DL (3.2-5.2); ALT/SGPT 18 U/L (12-78); BILIRUBIN,TOTAL 0.2 MG/DL (0.2-1.0); BLOOD UREA NITROGEN 24 MG/DL (7-18); CARBON DIOXIDE LEVEL 28 MEQ/L (21-32); CHLORIDE LEVEL 106 MEQ/L (98-107); CHOLESTEROL LEVEL 187 MG/DL (<200); CHOLESTEROL RISK RATIO 4.452 (<5); CREATININE FOR GFR 0.84 MG/DL (0.55-1.30); FREE T4 1.01 NG/DL (0.76-1.46); GLOMERULAR FILTRATION RATE > 60.0 (>45); GLUCOSE, FASTING 136 MG/DL (70-100); HDL CHOLESTEROL 42 MG/DL (>40); LDL CHOLESTEROL 69 MG/DL (<100); NON-HDL-C 145 MG/DL; POTASSIUM SERUM 3.9 MEQ/L (3.5-5.1); SODIUM LEVEL 140 MEQ/L (136-145); TOTAL PROTEIN 6.9 GM/DL (6.4-8.2); TRIGLYCERIDES LEVEL 379 MG/DL (<150)
[2021-05-05 11:27] LABS: TOTAL 25(OH) VITAMIN D 55.6 NG/ML (30.0-100.0)
[2021-05-05 11:31] LABS: MALB URINE SIEMENS 11.3 MG/L; MAU/CREAT RATIO 6.3 MCG/MG (0.0-30.0)
== END ==
LOC: M PLALAB 08:30
PROVIDERS: ATTEND Nurse Practitioner Family
DX: E11.9 Type 2 diabetes mellitus without complications (principal); E78.2 Mixed hyperlipidemia; E03.9 Hypothyroidism, unspecified; E55.9 Vitamin D deficiency, unspecified

== ENCOUNTER → 2021-05-10 | Outpatient (REF) | payer OTHER ==
[~2021-05-10] MED LIST changes: +ANAS1TAB2 PO; +POTA20EL PO
== END ==
LOC: M LAB REF 17:24
PROVIDERS: ATTEND Internal Medicine Nephrology
DX: N18.31 Chronic kidney disease, stage 3a (principal)

== ENCOUNTER → 2021-05-13 | Outpatient (CLI) | payer OTHER ==
--- NOTE | 2021-05-13 14:25 | RADENCPD ---
Date/Time of Encounter Date of Encounter: May 13, 2021 Time of Encounter: 14:23 Encounter Galina is here for a skin check, she is feeling much better. On exam the IMF on the right is completely re-epithelialized. There is a solitary 4 cm patch of moist desquamation overlying the tumor bed in the right lateral breast. There is granulation tissue at the margins. Assessment: Resolving CTCAE grade 2 skin reaction Plan: Follow up in 1 week, no further interventions warranted MORENO VU MD May 13, 2021 14:25
== END ==
LOC: M ONCR 14:02
PROVIDERS: ATTEND General Practice
DX: C50.511 Malignant neoplasm of lower-outer quadrant of right female breast (principal); Z92.3 Personal history of irradiation

== ENCOUNTER → 2021-05-20 | Outpatient (CLI) | payer OTHER ==
--- NOTE | 2021-05-20 16:52 | RADENCPD ---
Date/Time of Encounter Date of Encounter: May 20, 2021 Time of Encounter: 16:50 Encounter Galina is here for a skin check, reports he right breast and axilla feels better and is healing. Only complaint now is itching. On exam there is resolving CTCAE grade 1 skin reaction of the right breast and axilla, some dry peeling remains overlying the tumor bed lateral right breast. Assessment: Resolved grade 2 skin reaction. Plan: Hydrocortisone 1% for itching Follow up in 5 months as previously scheduled or sooner if needed. MORENO VU MD May 20, 2021 16:52
== END ==
LOC: M ONCR 13:38
PROVIDERS: ATTEND General Practice
DX: C50.511 Malignant neoplasm of lower-outer quadrant of right female breast (principal); Z92.3 Personal history of irradiation

== ENCOUNTER → 2021-05-24 | Outpatient (CLI) | payer OTHER ==
--- NOTE | 2021-05-24 20:22 | ECHO ---
ECHOCARDIOGRAM DATE OF PROCEDURE: 05/24/2021 Age: 61 years Gender: Female Height: 65 inches Weight: 307 pounds Body Surface Area: 2.37 m2. Outpatient REFERRING PROVIDER: TEJINDER WEST MD INDICATION: Breast cancer on Herceptin chemotherapy. Hypertension. MEASUREMENTS: 2D Measurements: RV 3.9 cm LV 5.2 cm Septum 1.1 cm Posterior wall 1.0 cm Aortic Root 4.1 cm LA 3.8 cm LVEF 65% Doppler Measurements: AV 1.39 m/s LVOT 0.9 m/s LVOT diameter 2.1 cm MV-E 75, A 84, E/A ratio 0.9 Early mitral deceleration time 194 ms E prime medial 8, A prime medial 10, E prime lateral 10 PV 0.96 m/s Pulmonary artery acceleration time 109 ms PASP 35 mmHg IVC 2.0 cm COMMENTS: Sinus bradycardia without intraventricular conduction disturbance. Challenging study in light of the patient's body habitus, but diagnostically useful information was still obtained. M-Mode and Two Dimensional Echocardiography was performed with pulse, continuous wave, color flow, and tissue Doppler studies. Normal left ventricular size, wall thickness, and wall motion. Mildly dilated left atrium with left atrial volume index from the apical projection 37 mL per m2. Grade 1 LV diastolic dysfunction but currently normal estimated mean left atrial pressure. Right heart chamber sizes were upper limits of normal with normal wall motion and Doppler evidence of mild pulmonary hypertension. Normal inferior vena cava (IVC) size and collapse against an elevated central venous pressure. Slightly dilated aortic root, but normal ascending aorta and aortic arch diameters. Normal-appearing and functioning aortic valve. Normal-appearing and functioning mitral valve and tricuspid valve. No apparent pericardial effusion or intracardiac mass. MTDD
== END ==
LOC: M CARPUL 08:31
PROVIDERS: ATTEND Specialist
DX: C50.919 Malignant neoplasm of unspecified site of unspecified female breast (principal); I10 Essential (primary) hypertension

== ENCOUNTER → 2021-06-08 | Outpatient (CLI) | payer OTHER ==
[~2021-06-08] MED LIST changes: +ACET-683 PO
--- NOTE | 2021-06-08 16:36 | DEXAMM ---
INDICATION: STARTING AI THERAPY. COMPARISON: None. TECHNIQUE: Bone density was measured using dual-energy x-ray absorptionmetry (DEXA). FINDINGS: AP SPINE L1-L4 BMD 1.258 g/cm2 Young Adult T-Score 0.5 Age Matched Z-Score 1.9. LT FEMUR, TOTAL BMD 0.981 g/cm2 Young Adult T-Score -0.2 Age Matched Z-Score 0.9. LT NECK BMD 0.981 g/cm2 Young Adult T-Score -0.4 Age Matched Z-Score 1.0. RT FEMUR, TOTAL BMD 0.901 g/cm2 Young Adult T-Score -0.8 Age Matched Z-Score 0.2. RT NECK BMD 0.947 g/cm2 Young Adult T-Score -0.7 Age Matched Z-Score 0.7. IMPRESSION: There is normal bone density of the spine. There is normal bone density of the left hip. There is normal bone density of the right hip. FOLLOW-UP: Recommendation for the next bone density exam: 5-10 years. <Electronically signed by Anselmo Bertrand > 06/08/21 [id number]
== END ==
LOC: M WHC 14:37
PROVIDERS: ATTEND Specialist
DX: Z79.811 Long term (current) use of aromatase inhibitors (principal)

== ENCOUNTER → 2021-08-29 | Outpatient (CLI) | payer OTHER ==
[~2021-08-29] MED LIST changes: -FLUC100T PO; +FLUC100T3 PO; -LISI20TA20 PO; +LISI20TA37 PO; +ONDA-84 PO; -ONDA8TAB10 PO; -PROC10TA4 PO; +PROC10TA5 PO
== END ==
LOC: M WHC 10:02
PROVIDERS: ATTEND Surgery
DX: C50.911 Malignant neoplasm of unspecified site of right female breast (principal); Z78.0 Asymptomatic menopausal state; Z92.21 Personal history of antineoplastic chemotherapy
CPT/HCPCS: 77066; G0279

== ENCOUNTER → 2021-09-14 | Outpatient (CLI) | payer OTHER ==
[~2021-09-14] MED LIST changes: +FLUC100T PO; -FLUC100T3 PO
== END ==
LOC: M CARPUL 09:06
PROVIDERS: ATTEND Specialist
DX: C50.919 Malignant neoplasm of unspecified site of unspecified female breast (principal)

== ENCOUNTER → 2021-10-03 | Outpatient (RCR) | payer OTHER ==
[~2021-10-03] MED LIST changes: -FLUC100T PO; +FLUC100T3 PO
== END ==
LOC: M PT 09-14 09:53
PROVIDERS: ATTEND Surgery
DX: I89.0 Lymphedema, not elsewhere classified (principal)

== ENCOUNTER 2021-10-10 09:11 | Outpatient (RCR) | payer OTHER | END 2021-10-31 | LOC: M PT 09:11 | PROVIDERS: ATTEND Surgery | DX: I89.0 Lymphedema, not elsewhere classified (principal) ==

== ENCOUNTER → 2021-10-26 | Outpatient (CLI) | payer OTHER | LOC: M ONCR 12:49 | PROVIDERS: ATTEND General Practice | DX: C50.511 Malignant neoplasm of lower-outer quadrant of right female breast (principal); L58.1 Chronic radiodermatitis; Z79.82 Long term (current) use of aspirin; Z79.84 Long term (current) use of oral hypoglycemic drugs; Z88.0 Allergy status to penicillin; Z92.21 Personal history of antineoplastic chemotherapy ==

== ENCOUNTER → 2021-11-21 | Outpatient (REF) | payer OTHER ==
[~2021-11-21] MED LIST changes: +TORS20TA2 PO
== END ==
LOC: M LAB REF 11:09
PROVIDERS: ATTEND Physician Assistant
DX: R94.31 Abnormal electrocardiogram [ECG] [EKG] (principal)

== ENCOUNTER → 2021-12-08 | Outpatient (CLI) | payer OTHER ==
[2021-12-08 13:43] LABS: BASO % 0.5 % (0.0-1.0); EOS # 0.2 10^3/uL (0.0-0.5); EOS % 3.4 % (0.0-3.0); HEMATOCRIT 34.9 % (36.0-47.0); HEMOGLOBIN 11.9 g/dl (12.0-15.5); LYMPH # 0.9 10^3/uL (1.5-5.0); LYMPH % 13.9 % (24.0-44.0); MEAN CORPUSCULAR HEMOGLOBIN 31.7 pg (27.0-33.0); MEAN CORPUSCULAR HGB CONC 34.1 g/dl (32.0-36.5); MEAN CORPUSCULAR VOLUME 93.1 fl (80.0-96.0); MONO # 0.5 10^3/uL (0.0-0.8); MONO % 8.5 % (2.0-8.0); NEUTROPHILS # 4.5 10^3/uL (1.5-8.5); NEUTROPHILS % 72.9 % (36.0-66.0); PLATELET COUNT, AUTOMATED 216 10^3/uL (150-450); RED BLOOD COUNT 3.75 10^6/uL (4.00-5.40); WHITE BLOOD COUNT 6.1 10^3/uL (4.0-10.0)
[2021-12-08 14:16] LABS: ALBUMIN 3.6 GM/DL (3.2-5.2); ALT/SGPT 22 U/L (12-78); BILIRUBIN,TOTAL 0.4 MG/DL (0.2-1.0); BLOOD UREA NITROGEN 22 MG/DL (7-18); CALCIUM LEVEL 9.3 MG/DL (8.8-10.2); CARBON DIOXIDE LEVEL 29 MEQ/L (21-32); CHLORIDE LEVEL 104 MEQ/L (98-107); CHOLESTEROL LEVEL 174 MG/DL (<200); CHOLESTEROL RISK RATIO 4.461 (<5); CREATININE FOR GFR 0.81 MG/DL (0.55-1.30); FREE T4 1.02 NG/DL (0.76-1.46); GLOMERULAR FILTRATION RATE > 60.0 (>45); GLUCOSE, FASTING 140 MG/DL (70-100); HDL CHOLESTEROL 39 MG/DL (>40); NON-HDL-C 135 MG/DL; POTASSIUM SERUM 3.8 MEQ/L (3.5-5.1); SODIUM LEVEL 141 MEQ/L (136-145); TOTAL PROTEIN 6.5 GM/DL (6.4-8.2); TRIGLYCERIDES LEVEL 506 MG/DL (<150); VITAMIN B12 LEVEL 337 PG/ML (247-911)
[2021-12-08 14:22] LABS: MALB URINE SIEMENS 13.9 MG/L; MAU/CREAT RATIO 8.2 MCG/MG (0.0-30.0)
[2021-12-08 14:34] LABS: HEMOGLOBIN A1c 6.1 %
== END ==
LOC: M PLALAB 09:52
PROVIDERS: ATTEND Physician Assistant
DX: I10 Essential (primary) hypertension (principal)

== ENCOUNTER → 2021-12-20 | Outpatient (CLI) | payer OTHER ==
[~2021-12-20] MED LIST changes: +MAGN500T12 PO
== END ==
LOC: M CARPUL 13:09
PROVIDERS: ATTEND Specialist
DX: C50.919 Malignant neoplasm of unspecified site of unspecified female breast (principal)

== ENCOUNTER → 2022-01-19 | Outpatient (CLI) | payer OTHER | LOC: M CARPUL 11:49 | PROVIDERS: ATTEND Internal Medicine Medical Oncology | DX: C50.919 Malignant neoplasm of unspecified site of unspecified female breast (principal) ==

== ENCOUNTER 2022-04-10 09:10 | Outpatient (RCR) | payer OTHER ==
[~2022-04-10 09:10] MED LIST changes: +BENA25CA4 PO; +MULT-90 PO
[2022-04-18] MEDS ORDERED: BENA25CA4 PO (10:29)
== END 2022-05-03 ==
LOC: M PT 09:10
PROVIDERS: ATTEND Surgery
DX: I89.0 Lymphedema, not elsewhere classified (principal)

== ENCOUNTER → 2022-04-20 | Outpatient (CLI) | payer OTHER ==
[2022-04-20 14:28] LABS: FREE THYROXINE INDEX 4.2 % (1.3-4.8); THYROID STIMULATING HORMONE 3.55 uIU/ML (0.358-3.740); THYROXINE (T4) 12.1 UG/DL (4.5-12.0)
[2022-04-20 14:29] LABS: HEMOGLOBIN A1c 6.3 %
== END ==
LOC: M PLALAB 09:29
PROVIDERS: ATTEND Psychiatry & Neurology Neurology
DX: E07.9 Disorder of thyroid, unspecified (principal); E11.9 Type 2 diabetes mellitus without complications; R25.1 Tremor, unspecified; E53.8 Deficiency of other specified B group vitamins

== ENCOUNTER → 2022-05-03 | Outpatient (CLI) | payer OTHER | LOC: M ONCR 12:58 | PROVIDERS: ATTEND General Practice | DX: C50.511 Malignant neoplasm of lower-outer quadrant of right female breast (principal); Z90.11 Acquired absence of right breast and nipple; Z92.3 Personal history of irradiation; Z88.0 Allergy status to penicillin; Z79.811 Long term (current) use of aromatase inhibitors; Z79.82 Long term (current) use of aspirin; Z79.84 Long term (current) use of oral hypoglycemic drugs; Z79.899 Other long term (current) drug therapy ==

== ENCOUNTER → 2022-06-15 | Outpatient (CLI) | payer OTHER | LOC: M CARPUL 12:53 | PROVIDERS: ATTEND Specialist | DX: I42.7 Cardiomyopathy due to drug and external agent (principal) ==

== ENCOUNTER → 2022-08-31 | Outpatient (CLI) | payer OTHER | LOC: M WHC 08:58 | PROVIDERS: ATTEND Surgery | DX: Z12.31 Encounter for screening mammogram for malignant neoplasm of breast (principal) ==

== ENCOUNTER → 2022-09-13 | Outpatient (CLI) | payer OTHER ==
[~2022-09-13] MED LIST changes: +META0.52 PO; +OZEM2INJ
[2022-09-13 10:36] LABS: BASO # 0.1 10^3/uL (0.0-0.2); BASO % 0.6 % (0.0-1.0); EOS # 0.2 10^3/uL (0.0-0.5); EOS % 2.1 % (0.0-3.0); HEMATOCRIT 37.1 % (36.0-47.0); HEMOGLOBIN 12.3 g/dl (12.0-15.5); LYMPH # 1.3 10^3/uL (1.5-5.0); LYMPH % 15.5 % (24.0-44.0); MEAN CORPUSCULAR HEMOGLOBIN 30.8 pg (27.0-33.0); MEAN CORPUSCULAR HGB CONC 33.2 g/dl (32.0-36.5); MONO # 0.6 10^3/uL (0.0-0.8); MONO % 6.6 % (2.0-8.0); NEUTROPHILS # 6.4 10^3/uL (1.5-8.5); NEUTROPHILS % 74.8 % (36.0-66.0); PLATELET COUNT, AUTOMATED 264 10^3/uL (150-450); RED BLOOD COUNT 3.99 10^6/uL (4.00-5.40); WHITE BLOOD COUNT 8.5 10^3/uL (4.0-10.0)
[2022-09-13 11:05] LABS: BLOOD UREA NITROGEN 22 MG/DL (9-23); CALCIUM LEVEL 9.9 MG/DL (8.3-10.6); CARBON DIOXIDE LEVEL 29 MMOL/L (20-31); CHLORIDE LEVEL 101 MMOL/L (98-107); CREATININE FOR GFR 0.79 MG/DL (0.55-1.30); GLOMERULAR FILTRATION RATE > 60.0 (>45); GLUCOSE, FASTING 125 MG/DL (74-106); POTASSIUM SERUM 4.3 MMOL/L (3.5-5.1); SODIUM LEVEL 139 MMOL/L (136-145)
[2022-09-13 11:18] LABS: HEMOGLOBIN A1c 5.5 % (4.0-6.0)
== END ==
LOC: M PLALAB 08:56
PROVIDERS: ATTEND Physician Assistant
DX: E11.22 Type 2 diabetes mellitus with diabetic chronic kidney disease (principal)

== ENCOUNTER → 2022-12-08 | Outpatient (REF) | payer OTHER ==
[2022-12-08 14:19] LABS: BLOOD UREA NITROGEN 32 MG/DL (9-23); CALCIUM LEVEL 9.8 MG/DL (8.3-10.6); CARBON DIOXIDE LEVEL 27 MMOL/L (20-31); CHLORIDE LEVEL 104 MMOL/L (98-107); CREATININE FOR GFR 0.85 MG/DL (0.55-1.30); GLOMERULAR FILTRATION RATE > 60.0 (>45); GLUCOSE, FASTING 159 MG/DL (74-106); POTASSIUM SERUM 4.8 MMOL/L (3.5-5.1); SODIUM LEVEL 141 MMOL/L (136-145)
== END ==
LOC: M SFHCADAM 09:51
PROVIDERS: ATTEND Physician Assistant
DX: N18.31 Chronic kidney disease, stage 3a (principal)

== ENCOUNTER → 2022-12-21 | Outpatient (REF) | payer OTHER ==
[2022-12-21 17:05] LABS: LIPASE 29 U/L (12-53)
[2022-12-21 17:08] LABS: ALBUMIN 2.7 G/DL (3.2-5.2); ALKALINE PHOSPHATASE 158 U/L (46-116); ALT/SGPT < 9 U/L (7.0-40); AST/SGOT 17 U/L (<34); BILIRUBIN,TOTAL 0.2 MG/DL (0.3-1.2); BLOOD UREA NITROGEN 26 MG/DL (9-23); CALCIUM LEVEL 9.6 MG/DL (8.3-10.6); CARBON DIOXIDE LEVEL 27 MMOL/L (20-31); CHLORIDE LEVEL 101 MMOL/L (98-107); CREATININE FOR GFR 1.05 MG/DL (0.55-1.30); GLOMERULAR FILTRATION RATE 56.2 (>45); GLUCOSE, FASTING 136 MG/DL (74-106); POTASSIUM SERUM 5.2 MMOL/L (3.5-5.1); SODIUM LEVEL 140 MMOL/L (136-145)
[2022-12-21 17:09] LABS: AMYLASE < 20 U/L (30-118)
[2022-12-21 17:19] LABS: BASO % 0.3 % (0.0-1.0); EOS # 0.4 10^3/uL (0.0-0.5); EOS % 3.3 % (0.0-3.0); HEMATOCRIT 32.3 % (36.0-47.0); HEMOGLOBIN 9.9 g/dl (12.0-15.5); LYMPH # 1.4 10^3/uL (1.5-5.0); LYMPH % 11.6 % (24.0-44.0); MEAN CORPUSCULAR HEMOGLOBIN 28.3 pg (27.0-33.0); MEAN CORPUSCULAR HGB CONC 30.7 g/dl (32.0-36.5); MEAN CORPUSCULAR VOLUME 92.3 fl (80.0-96.0); MONO # 0.8 10^3/uL (0.0-0.8); MONO % 6.2 % (2.0-8.0); NEUTROPHILS # 9.5 10^3/uL (1.5-8.5); NEUTROPHILS % 77.5 % (36.0-66.0); WHITE BLOOD COUNT 12.3 10^3/uL (4.0-10.0)
== END ==
LOC: M SFHCADAM 14:23
PROVIDERS: ATTEND Physician Assistant
DX: R10.811 Right upper quadrant abdominal tenderness (principal)

== ENCOUNTER → 2022-12-22 | Outpatient (CLI) | payer OTHER | LOC: M RAD 11:00 | PROVIDERS: ATTEND Physician Assistant | DX: R10.811 Right upper quadrant abdominal tenderness (principal) ==

== ENCOUNTER → 2023-01-08 | Outpatient (CLI) | payer OTHER ==
[~2023-01-08] MED LIST changes: +GASTROGRAFIN SOLUTION 30ML As Ordered ONE; +ISOVUE-370 76% 100ML VIAL As Ordered ONE
== END ==
LOC: M RAD 11:08
PROVIDERS: ATTEND Physician Assistant
DX: R93.3 Abnormal findings on diagnostic imaging of other parts of digestive tract (principal); R93.421 Abnormal radiologic findings on diagnostic imaging of right kidney; R16.0 Hepatomegaly, not elsewhere classified; K80.20 Calculus of gallbladder without cholecystitis without obstruction; D72.829 Elevated white blood cell count, unspecified
CPT/HCPCS: 74178; Q9963; Q9967

== ENCOUNTER → 2023-01-09 | Outpatient (CLI) | payer OTHER ==
[~2023-01-09] MED LIST changes: -GASTROGRAFIN SOLUTION 30ML As Ordered ONE; -ISOVUE-370 76% 100ML VIAL As Ordered ONE
== END ==
LOC: M CARPUL 08:31
PROVIDERS: ATTEND Physician Assistant
DX: I50.42 Chronic combined systolic (congestive) and diastolic (congestive) heart failure (principal); I77.819 Aortic ectasia, unspecified site; I08.0 Rheumatic disorders of both mitral and aortic valves

== ENCOUNTER → 2023-01-12 | Outpatient (CLI) | payer OTHER ==
[2023-01-12 13:43] LABS: BASO % 0.2 % (0.0-1.0); EOS % 0.2 % (0.0-3.0); HEMATOCRIT 31.9 % (36.0-47.0); HEMOGLOBIN 9.8 g/dl (12.0-15.5); LYMPH # 1.3 10^3/uL (1.5-5.0); MEAN CORPUSCULAR HEMOGLOBIN 27.9 pg (27.0-33.0); MEAN CORPUSCULAR HGB CONC 30.7 g/dl (32.0-36.5); MEAN CORPUSCULAR VOLUME 90.9 fl (80.0-96.0); MONO # 0.5 10^3/uL (0.0-0.8); NEUTROPHILS # 2.9 10^3/uL (1.5-8.5); PLATELET COUNT, AUTOMATED 398 10^3/uL (150-450); RED BLOOD COUNT 3.51 10^6/uL (4.00-5.40); WHITE BLOOD COUNT 4.8 10^3/uL (4.0-10.0)
[2023-01-12 14:03] LABS: ALBUMIN 2.9 G/DL (3.2-5.2); BILIRUBIN,TOTAL 0.2 MG/DL (0.3-1.2); CALCIUM LEVEL 8.6 MG/DL (8.3-10.6); CREATININE FOR GFR 1.18 MG/DL (0.55-1.30); GLOMERULAR FILTRATION RATE 49.1 (>45); PERCENT SATURATION 11.5 % (13.2-45.0); POTASSIUM SERUM 4.3 MMOL/L (3.5-5.1); TOTAL PROTEIN 6.9 G/DL (5.7-8.2)
[2023-01-12 14:06] LABS: FERRITIN 1618.9 NG/ML (7.3-270.7)
== END ==
LOC: M PLALAB 09:36
PROVIDERS: ATTEND Physician Assistant
DX: K81.9 Cholecystitis, unspecified (principal); D50.9 Iron deficiency anemia, unspecified

== ENCOUNTER → 2023-01-16 | Outpatient (REF) | payer OTHER ==
[~2023-01-16] MED LIST changes: +B-12100010 PO
[2023-01-16 15:53] LABS: APPEARANCE, URINE CLEAR (CLEAR); BACTERIA, URINE AUTO NEGATIVE (NEGATIVE); BILIRUBIN, URINE AUTO NEGATIVE (NEGATIVE); BLOOD, URINE BLOOD NEGATIVE (NEGATIVE); COLOR, URINE YELLOW (YELLOW); GLUCOSE, URINE (UA) AUTO NEGATIVE (NEGATIVE); KETONE, URINE AUTO NEGATIVE (NEGATIVE); LEUKOCYTE ESTERASE, URINE AUTO 3+ (NEGATIVE); MUCUS, URINE SMALL (NEGATIVE); NITRITE, URINE AUTO NEGATIVE (NEGATIVE); PROTEIN, URINE AUTO NEGATIVE (NEGATIVE); RBC, URINE AUTO 2 /HPF (0-3); SQUAMOUS EPITHELIAL CELL UR AU 0 /HPF (0-6); UROBILINOGEN, URINE AUTO 0.2 mg/dL (0.0-2.0); WBC, URINE AUTO 12 /HPF (0-3)
== END ==
LOC: M SFHCADAM 15:09
PROVIDERS: ATTEND Physician Assistant
DX: K81.9 Cholecystitis, unspecified (principal); D50.9 Iron deficiency anemia, unspecified

== ENCOUNTER → 2023-04-04 | Outpatient (REF) | payer MEDICARE, OTHER ==
[2023-04-04 14:58] LABS: ALBUMIN 3.4 G/DL (3.2-5.2); ALKALINE PHOSPHATASE 113 U/L (46-116); ALT/SGPT < 9 U/L (7.0-40); AST/SGOT < 8 U/L (<34); BILIRUBIN,TOTAL 0.2 MG/DL (0.3-1.2); BLOOD UREA NITROGEN 27 MG/DL (9-23); CALCIUM LEVEL 9.8 MG/DL (8.3-10.6); CARBON DIOXIDE LEVEL 27 MMOL/L (20-31); CHLORIDE LEVEL 106 MMOL/L (98-107); CREATININE FOR GFR 0.79 MG/DL (0.55-1.30); GLOMERULAR FILTRATION RATE > 60.0 (>45); GLUCOSE, FASTING 140 MG/DL (74-106); IRON (FE) 35 UG/DL (50-170); POTASSIUM SERUM 4.9 MMOL/L (3.5-5.1); SODIUM LEVEL 143 MMOL/L (136-145); TOTAL IRON BINDING CAPACITY 250 UG/DL (250-425); TOTAL PROTEIN 6.9 G/DL (5.7-8.2)
== END ==
LOC: M SFHCADAM 09:30
PROVIDERS: ATTEND Physician Assistant
DX: D50.9 Iron deficiency anemia, unspecified (principal); D63.8 Anemia in other chronic diseases classified elsewhere

== ENCOUNTER → 2023-05-02 | Outpatient (CLI) | payer MEDICARE, OTHER | LOC: M ONCR 12:44 | PROVIDERS: ATTEND General Practice | DX: C50.511 Malignant neoplasm of lower-outer quadrant of right female breast (principal); Z71.2 Person consulting for explanation of examination or test findings; Z79.811 Long term (current) use of aromatase inhibitors; Z79.82 Long term (current) use of aspirin; Z79.85 Long-term (current) use of injectable non-insulin antidiabetic drugs; Z79.891 Long term (current) use of opiate analgesic; Z79.84 Long term (current) use of oral hypoglycemic drugs; Z79.899 Other long term (current) drug therapy; Z88.0 Allergy status to penicillin; Z92.21 Personal history of antineoplastic chemotherapy; Z92.3 Personal history of irradiation ==

== ENCOUNTER → 2023-06-12 | Outpatient (CLI) | payer MEDICARE, OTHER | LOC: M WHC 11:04 | PROVIDERS: ATTEND Specialist | DX: M81.0 Age-related osteoporosis without current pathological fracture (principal) ==

== ENCOUNTER → 2023-07-27 | Outpatient (CLI) | payer OTHER, MEDICARE ==
[~2023-07-27] MED LIST changes: +LISI10TA22
[2023-07-27 09:23] LABS: BASO % 0.4 % (0.0-1.0); EOS # 0.4 10^3/uL (0.0-0.5); EOS % 3.7 % (0.0-3.0); HEMATOCRIT 34.2 % (36.0-47.0); HEMOGLOBIN 11.3 g/dl (12.0-15.5); LYMPH # 1.2 10^3/uL (1.5-5.0); LYMPH % 11.9 % (24.0-44.0); MEAN CORPUSCULAR HEMOGLOBIN 30.5 pg (27.0-33.0); MEAN CORPUSCULAR VOLUME 92.2 fl (80.0-96.0); MONO # 0.7 10^3/uL (0.0-0.8); MONO % 6.7 % (2.0-8.0); NEUTROPHILS # 7.6 10^3/uL (1.5-8.5); NEUTROPHILS % 76.6 % (36.0-66.0); PLATELET COUNT, AUTOMATED 318 10^3/uL (150-450); RED BLOOD COUNT 3.71 10^6/uL (4.00-5.40)
[2023-07-27 09:48] LABS: ALBUMIN 3.2 G/DL (3.2-5.2); ALKALINE PHOSPHATASE 108 U/L (46-116); ALT/SGPT 11 U/L (7.0-40); AST/SGOT 10 U/L (<34); BILIRUBIN,TOTAL 0.2 MG/DL (0.3-1.2); BLOOD UREA NITROGEN 32 MG/DL (9-23); CALCIUM LEVEL 9.4 MG/DL (8.3-10.6); CARBON DIOXIDE LEVEL 26 MMOL/L (20-31); CHLORIDE LEVEL 107 MMOL/L (98-107); CHOLESTEROL LEVEL 194 MG/DL (<200); CHOLESTEROL RISK RATIO 4.27 (<5); GLOMERULAR FILTRATION RATE > 60.0 (>45); GLUCOSE, FASTING 146 MG/DL (74-106); HDL CHOLESTEROL 45.4 MG/DL (>40); LDL CHOLESTEROL 82.2 MG/DL (<100); NON-HDL-C 148.6 MG/DL; POTASSIUM SERUM 4.1 MMOL/L (3.5-5.1); SODIUM LEVEL 141 MMOL/L (136-145); TOTAL 25(OH) VITAMIN D 66.4 NG/ML (20.0-100.0); TOTAL PROTEIN 6.8 G/DL (5.7-8.2); TRIGLYCERIDES LEVEL 332 MG/DL (<150)
[2023-07-27 09:50] LABS: FREE T4 1.11 NG/DL (0.89-1.76)
[2023-07-27 10:14] LABS: HEMOGLOBIN A1c 5.8 % (4.0-6.0)
== END ==
LOC: M LAB 09:02
PROVIDERS: ATTEND Physician Assistant
DX: E78.2 Mixed hyperlipidemia (principal); E03.9 Hypothyroidism, unspecified; K21.9 Gastro-esophageal reflux disease without esophagitis; E55.9 Vitamin D deficiency, unspecified; N18.31 Chronic kidney disease, stage 3a; E11.22 Type 2 diabetes mellitus with diabetic chronic kidney disease

== ENCOUNTER → 2023-09-05 | Outpatient (CLI) | payer MEDICARE, OTHER ==
[~2023-09-05] MED LIST changes: -POTA20EL PO; +POTA20LI16 PO
== END ==
LOC: M WHC 09:31
PROVIDERS: ATTEND Nurse Practitioner Women's Health
DX: C50.211 Malignant neoplasm of upper-inner quadrant of right female breast (principal)
CPT/HCPCS: 77066; G0279

== ENCOUNTER → 2023-10-27 | Outpatient (CLI) | payer OTHER, MEDICARE ==
[2023-10-27 09:13] LABS: BASO % 0.5 % (0.0-1.0); EOS # 0.3 10^3/uL (0.0-0.5); EOS % 4.5 % (0.0-3.0); HEMATOCRIT 37.1 % (36.0-47.0); HEMOGLOBIN 12.3 g/dl (12.0-15.5); LYMPH # 1.5 10^3/uL (1.5-5.0); LYMPH % 20.5 % (24.0-44.0); MEAN CORPUSCULAR HEMOGLOBIN 30.3 pg (27.0-33.0); MEAN CORPUSCULAR HGB CONC 33.2 g/dl (32.0-36.5); MEAN CORPUSCULAR VOLUME 91.4 fl (80.0-96.0); MONO # 0.5 10^3/uL (0.0-0.8); NEUTROPHILS # 4.9 10^3/uL (1.5-8.5); NEUTROPHILS % 67.1 % (36.0-66.0); PLATELET COUNT, AUTOMATED 296 10^3/uL (150-450); RED BLOOD COUNT 4.06 10^6/uL (4.00-5.40); WHITE BLOOD COUNT 7.3 10^3/uL (4.0-10.0)
[2023-10-27 09:31] LABS: HEMOGLOBIN A1c 6.2 % (4.0-6.0)
[2023-10-27 09:39] LABS: ALBUMIN 3.4 G/DL (3.2-5.2); ALKALINE PHOSPHATASE 103 U/L (46-116); ALT/SGPT 14 U/L (7.0-40); AST/SGOT 9 U/L (<34); BILIRUBIN,TOTAL 0.3 MG/DL (0.3-1.2); BLOOD UREA NITROGEN 20 MG/DL (9-23); CALCIUM LEVEL 9.6 MG/DL (8.3-10.6); CARBON DIOXIDE LEVEL 31 MMOL/L (20-31); CHLORIDE LEVEL 105 MMOL/L (98-107); CHOLESTEROL LEVEL 178 MG/DL (<200); CREATININE FOR GFR 0.79 MG/DL (0.55-1.30); GLOMERULAR FILTRATION RATE > 60.0 (>45); GLUCOSE, FASTING 150 MG/DL (74-106); HDL CHOLESTEROL 41.3 MG/DL (>40); LDL CHOLESTEROL 80.7 MG/DL (<100); NON-HDL-C 136.7 MG/DL; POTASSIUM SERUM 4.7 MMOL/L (3.5-5.1); SODIUM LEVEL 140 MMOL/L (136-145); TOTAL PROTEIN 6.8 G/DL (5.7-8.2); TRIGLYCERIDES LEVEL 280 MG/DL (<150)
[2023-10-27 09:42] LABS: FREE T4 1.19 NG/DL (0.89-1.76); THYROID STIMULATING HORMONE 2.473 uIU/ML (0.55-4.78)
== END ==
LOC: M LAB 08:45
PROVIDERS: ATTEND Physician Assistant
DX: E78.2 Mixed hyperlipidemia (principal); E03.9 Hypothyroidism, unspecified; N18.31 Chronic kidney disease, stage 3a; E11.22 Type 2 diabetes mellitus with diabetic chronic kidney disease; D63.8 Anemia in other chronic diseases classified elsewhere

== ENCOUNTER 2024-01-25 12:52 | Outpatient (RCR) | payer MEDICARE, OTHER ==
[2020-10-01 13:02] LABS: BASO # 0.1 10^3/uL (0.0-0.2); BASO % 0.7 % (0.0-1.0); EOS # 0.2 10^3/uL (0.0-0.5); EOS % 2.6 % (0.0-3.0); HEMATOCRIT 36.6 % (36.0-47.0); HEMOGLOBIN 12.1 g/dl (12.0-15.5); LYMPH # 1.6 10^3/uL (1.5-5.0); LYMPH % 22.4 % (24.0-44.0); MEAN CORPUSCULAR HEMOGLOBIN 29.4 pg (27.0-33.0); MEAN CORPUSCULAR HGB CONC 33.1 g/dl (32.0-36.5); MEAN CORPUSCULAR VOLUME 89.1 fl (80.0-96.0); MONO # 0.4 10^3/uL (0.0-0.8); MONO % 5.8 % (0.0-5.0); NEUTROPHILS # 4.9 10^3/uL (1.5-8.5); NEUTROPHILS % 67.8 % (36.0-66.0); PLATELET COUNT, AUTOMATED 318 10^3/uL (150-450); RED BLOOD COUNT 4.11 10^6/uL (4.00-5.40); WHITE BLOOD COUNT 7.2 10^3/uL (4.0-10.0)
[2020-10-01 13:17] LABS: INR 0.9; PROTHROMBIN TIME 12.3 SECONDS (12.5-14.3)
[2020-10-01 13:31] LABS: ALBUMIN 3.8 GM/DL (3.2-5.2); BILIRUBIN,TOTAL 0.2 MG/DL (0.2-1.0); CALCIUM LEVEL 10.3 MG/DL (8.8-10.2); CREATININE FOR GFR 1.01 MG/DL (0.55-1.30); GLOMERULAR FILTRATION RATE 59.1 (>45); POTASSIUM SERUM 3.7 MEQ/L (3.5-5.1); TOTAL PROTEIN 8.2 GM/DL (6.4-8.2)
[2020-10-04 14:22] LABS: CA15-3 ANTIGEN 31.1 U/ML (<32.4); CARCINOEMBRYONIC ANTIGEN 3.4 NG/ML (<2.5)
[2020-10-25 10:25] VITALS: BP 129/79; O2SAT 92
[2020-11-11 11:04] VITALS: BP 126/59; O2SAT 96
[2020-11-11 11:09] LABS: BASO % 0.5 % (0.0-1.0); EOS # 0.2 10^3/uL (0.0-0.5); EOS % 3.3 % (0.0-3.0); HEMATOCRIT 32.4 % (36.0-47.0); HEMOGLOBIN 10.9 g/dl (12.0-15.5); LYMPH # 1.4 10^3/uL (1.5-5.0); LYMPH % 21.3 % (24.0-44.0); MEAN CORPUSCULAR HEMOGLOBIN 29.9 pg (27.0-33.0); MEAN CORPUSCULAR HGB CONC 33.6 g/dl (32.0-36.5); MEAN CORPUSCULAR VOLUME 88.8 fl (80.0-96.0); MONO # 0.5 10^3/uL (0.0-0.8); MONO % 7.2 % (2.0-8.0); NEUTROPHILS # 4.5 10^3/uL (1.5-8.5); NEUTROPHILS % 67.1 % (36.0-66.0); PLATELET COUNT, AUTOMATED 223 10^3/uL (150-450); RED BLOOD COUNT 3.65 10^6/uL (4.00-5.40); WHITE BLOOD COUNT 6.7 10^3/uL (4.0-10.0)
[2020-11-11 11:39] LABS: ALBUMIN 3.5 GM/DL (3.2-5.2); BILIRUBIN,TOTAL 0.1 MG/DL (0.2-1.0); CALCIUM LEVEL 9.6 MG/DL (8.8-10.2); CREATININE FOR GFR 1.07 MG/DL (0.55-1.30); GLOMERULAR FILTRATION RATE 55.3 (>45); POTASSIUM SERUM 3.9 MEQ/L (3.5-5.1); TOTAL PROTEIN 7.3 GM/DL (6.4-8.2)
[2020-11-11] MEDS: FAMOTIDINE 20 MG IV IV ONE (12:40)
[2020-11-11] MEDS: diphenhydrAMINE 25 MG IV IV ONE (12:40)
[2020-11-11] MEDS: FOSAPREPITANT PERIPHERAL LINE 30 MIN INFUSION IV ONE (12:40)
[2020-11-11] MEDS: PALONOSETRON 250 MCG IV IV ONE (12:41)
[2020-11-11] MEDS: dexameTHASONE 10 MG IV IV ONE (12:41)
[2020-11-11 13:12] LABS: CA15-3 ANTIGEN 20.7 U/ML (<32.4); CARCINOEMBRYONIC ANTIGEN 3.4 NG/ML (<2.5)
[2020-11-11] MEDS: TRASTUZUMAB IV ONE (13:54)
[2020-11-11] MEDS: NS IV ONE (15:16)
[2020-11-11] MEDS: PACLITAXEL IV ONE (15:16)
[2020-11-11] MEDS: SODIUM CHLORIDE 0.9% INJ 10 ML SYR IV PRN (15:17)
[2020-11-18 10:20] VITALS: BP 103/61; O2SAT 95
[2020-11-18 10:25] LABS: BASO % 0.6 % (0.0-1.0); EOS # 0.3 10^3/uL (0.0-0.5); EOS % 4.1 % (0.0-3.0); HEMATOCRIT 32.8 % (36.0-47.0); HEMOGLOBIN 11.3 g/dl (12.0-15.5); LYMPH # 1.3 10^3/uL (1.5-5.0); LYMPH % 19.7 % (24.0-44.0); MEAN CORPUSCULAR HEMOGLOBIN 30.9 pg (27.0-33.0); MEAN CORPUSCULAR HGB CONC 34.5 g/dl (32.0-36.5); MEAN CORPUSCULAR VOLUME 89.6 fl (80.0-96.0); MONO # 0.3 10^3/uL (0.0-0.8); MONO % 3.9 % (2.0-8.0); NEUTROPHILS # 4.7 10^3/uL (1.5-8.5); NEUTROPHILS % 70.8 % (36.0-66.0); PLATELET COUNT, AUTOMATED 272 10^3/uL (150-450); RED BLOOD COUNT 3.66 10^6/uL (4.00-5.40); WHITE BLOOD COUNT 6.7 10^3/uL (4.0-10.0)
[2020-11-18 10:59] LABS: ALBUMIN 3.5 GM/DL (3.2-5.2); BILIRUBIN,TOTAL 0.2 MG/DL (0.2-1.0); CALCIUM LEVEL 9.2 MG/DL (8.8-10.2); CREATININE FOR GFR 1.14 MG/DL (0.55-1.30); GLOMERULAR FILTRATION RATE 51.4 (>45); POTASSIUM SERUM 3.4 MEQ/L (3.5-5.1); TOTAL PROTEIN 7.4 GM/DL (6.4-8.2)
[2020-11-18] MEDS: dexameTHASONE 10 MG IV IV ONE (11:21)
[2020-11-18] MEDS: PALONOSETRON 250 MCG IV IV ONE (11:21)
[2020-11-18] MEDS: diphenhydrAMINE 25 MG IV IV ONE (11:21)
[2020-11-18] MEDS: FAMOTIDINE 20 MG IV IV ONE (11:21)
[2020-11-18] MEDS: FOSAPREPITANT PERIPHERAL LINE 30 MIN INFUSION IV ONE (11:55)
[2020-11-18] MEDS: NS IV ONE (12:22)
[2020-11-18] MEDS: PACLITAXEL IV ONE (12:22)
[2020-11-18] MEDS: SODIUM CHLORIDE 0.9% INJ 10 ML SYR IV PRN (13:40)
[2020-11-25 10:05] VITALS: BP 97/52; O2SAT 96
[2020-11-25 10:33] LABS: BASO % 0.7 % (0.0-1.0); EOS # 0.2 10^3/uL (0.0-0.5); EOS % 3.2 % (0.0-3.0); HEMATOCRIT 30.7 % (36.0-47.0); HEMOGLOBIN 10.3 g/dl (12.0-15.5); LYMPH # 1.2 10^3/uL (1.5-5.0); LYMPH % 21.6 % (24.0-44.0); MEAN CORPUSCULAR HEMOGLOBIN 30.1 pg (27.0-33.0); MEAN CORPUSCULAR HGB CONC 33.6 g/dl (32.0-36.5); MEAN CORPUSCULAR VOLUME 89.8 fl (80.0-96.0); MONO # 0.4 10^3/uL (0.0-0.8); MONO % 6.5 % (2.0-8.0); NEUTROPHILS # 3.6 10^3/uL (1.5-8.5); NEUTROPHILS % 66.9 % (36.0-66.0); PLATELET COUNT, AUTOMATED 263 10^3/uL (150-450); RED BLOOD COUNT 3.42 10^6/uL (4.00-5.40); WHITE BLOOD COUNT 5.4 10^3/uL (4.0-10.0)
[2020-11-25 10:59] LABS: ALBUMIN 3.3 GM/DL (3.2-5.2); BILIRUBIN,TOTAL 0.1 MG/DL (0.2-1.0); CALCIUM LEVEL 9.5 MG/DL (8.8-10.2); CREATININE FOR GFR 1.17 MG/DL (0.55-1.30); GLOMERULAR FILTRATION RATE 49.9 (>45); POTASSIUM SERUM 3.9 MEQ/L (3.5-5.1); TOTAL PROTEIN 6.8 GM/DL (6.4-8.2)
[2020-11-25] MEDS: diphenhydrAMINE 25 MG IV IV ONE (11:23)
[2020-11-25] MEDS: FAMOTIDINE 20 MG IV IV ONE (11:23)
[2020-11-25] MEDS: PALONOSETRON 250 MCG IV IV ONE (11:23)
[2020-11-25] MEDS: dexameTHASONE 10 MG IV IV ONE (11:24)
[2020-11-25] MEDS: FOSAPREPITANT PERIPHERAL LINE 30 MIN INFUSION IV ONE (11:46)
[2020-11-25] MEDS: PACLITAXEL IV ONE (12:13)
[2020-11-25] MEDS: NS IV ONE (12:13)
[2020-11-25] MEDS: SODIUM CHLORIDE 0.9% INJ 10 ML SYR IV PRN (13:40)
[2020-12-02 10:46] VITALS: BP 113/70; O2SAT 96
[2020-12-02 10:54] LABS: BASO % 0.5 % (0.0-1.0); EOS # 0.2 10^3/uL (0.0-0.5); EOS % 2.5 % (0.0-3.0); HEMATOCRIT 31.8 % (36.0-47.0); HEMOGLOBIN 10.6 g/dl (12.0-15.5); LYMPH # 1.2 10^3/uL (1.5-5.0); LYMPH % 20.2 % (24.0-44.0); MEAN CORPUSCULAR HEMOGLOBIN 30.2 pg (27.0-33.0); MEAN CORPUSCULAR HGB CONC 33.3 g/dl (32.0-36.5); MEAN CORPUSCULAR VOLUME 90.6 fl (80.0-96.0); MONO # 0.4 10^3/uL (0.0-0.8); MONO % 5.9 % (2.0-8.0); NEUTROPHILS # 4.3 10^3/uL (1.5-8.5); NEUTROPHILS % 69.6 % (36.0-66.0); PLATELET COUNT, AUTOMATED 293 10^3/uL (150-450); RED BLOOD COUNT 3.51 10^6/uL (4.00-5.40); WHITE BLOOD COUNT 6.1 10^3/uL (4.0-10.0)
[2020-12-02 11:34] LABS: ALBUMIN 3.3 GM/DL (3.2-5.2); ALKALINE PHOSPHATASE 87 U/L (45-117); ALT/SGPT 17 U/L (12-78); AST/SGOT 11 U/L (7-37); BILIRUBIN,TOTAL 0.2 MG/DL (0.2-1.0); BLOOD UREA NITROGEN 32 MG/DL (7-18); CALCIUM LEVEL 8.7 MG/DL (8.8-10.2); CARBON DIOXIDE LEVEL 31 MEQ/L (21-32); CHLORIDE LEVEL 101 MEQ/L (98-107); CREATININE FOR GFR 0.95 MG/DL (0.55-1.30); GLOMERULAR FILTRATION RATE > 60.0 (>45); GLUCOSE, FASTING 129 MG/DL (70-100); POTASSIUM SERUM 3.5 MEQ/L (3.5-5.1); SODIUM LEVEL 138 MEQ/L (136-145)
[2020-12-02] MEDS: FAMOTIDINE 20 MG IV IV ONE (12:03)
[2020-12-02] MEDS: diphenhydrAMINE 25 MG IV IV ONE (12:03)
[2020-12-02] MEDS: dexameTHASONE 10 MG IV IV ONE (12:03)
[2020-12-02] MEDS: FOSAPREPITANT PERIPHERAL LINE 30 MIN INFUSION IV ONE (12:03)
[2020-12-02] MEDS: PALONOSETRON 0.25MG/5ML VIAL (ALOXI) IV ONE (12:03)
[2020-12-02 12:23] LABS: CA15-3 ANTIGEN 27.2 U/ML (<32.4); CARCINOEMBRYONIC ANTIGEN 2.9 NG/ML (<2.5)
[2020-12-02] MEDS: TRASTUZUMAB IV ONE (13:12)
[2020-12-02] MEDS: NS IV ONE ×2 (13:12→13:44)
[2020-12-02] MEDS: PACLITAXEL IV ONE (13:44)
[2020-12-02] MEDS: SODIUM CHLORIDE 0.9% INJ 10 ML SYR IV PRN (14:58)
[2020-12-09 11:22] LABS: BASO # 0.1 10^3/uL (0.0-0.2); BASO % 0.8 % (0.0-1.0); EOS # 0.2 10^3/uL (0.0-0.5); EOS % 2.6 % (0.0-3.0); HEMATOCRIT 31.3 % (36.0-47.0); HEMOGLOBIN 10.5 g/dl (12.0-15.5); LYMPH # 1.2 10^3/uL (1.5-5.0); LYMPH % 19.8 % (24.0-44.0); MEAN CORPUSCULAR HEMOGLOBIN 30.9 pg (27.0-33.0); MEAN CORPUSCULAR HGB CONC 33.5 g/dl (32.0-36.5); MEAN CORPUSCULAR VOLUME 92.1 fl (80.0-96.0); MONO # 0.4 10^3/uL (0.0-0.8); MONO % 6.1 % (2.0-8.0); NEUTROPHILS # 4.3 10^3/uL (1.5-8.5); PLATELET COUNT, AUTOMATED 274 10^3/uL (150-450); WHITE BLOOD COUNT 6.3 10^3/uL (4.0-10.0)
[2020-12-09 11:34] VITALS: BP 104/63; O2SAT 97
[2020-12-09 11:38] LABS: ALBUMIN 3.3 GM/DL (3.2-5.2); BILIRUBIN,TOTAL 0.2 MG/DL (0.2-1.0); CALCIUM LEVEL 9.2 MG/DL (8.8-10.2); CREATININE FOR GFR 1.07 MG/DL (0.55-1.30); GLOMERULAR FILTRATION RATE 55.3 (>45); POTASSIUM SERUM 3.9 MEQ/L (3.5-5.1); TOTAL PROTEIN 6.8 GM/DL (6.4-8.2)
[2020-12-09] MEDS: dexameTHASONE 10 MG IV IV ONE (11:53)
[2020-12-09] MEDS: FAMOTIDINE 20 MG IV IV ONE (11:53)
[2020-12-09] MEDS: PALONOSETRON 250 MCG IV IV ONE (11:53)
[2020-12-09] MEDS: diphenhydrAMINE 25 MG IV IV ONE (11:53)
[2020-12-09] MEDS: FOSAPREPITANT PERIPHERAL LINE 30 MIN INFUSION IV ONE (12:21)
[2020-12-09] MEDS: NS IV ONE (12:59)
[2020-12-09] MEDS: PACLITAXEL IV ONE (12:59)
[2020-12-09] MEDS: SODIUM CHLORIDE 0.9% INJ 10 ML SYR IV PRN (14:18)
[2020-12-16 10:48] VITALS: BP 106/61; O2SAT 97
[2020-12-16 11:03] LABS: BASO % 0.5 % (0.0-1.0); EOS # 0.2 10^3/uL (0.0-0.5); EOS % 2.3 % (0.0-3.0); HEMATOCRIT 31.6 % (36.0-47.0); HEMOGLOBIN 10.5 g/dl (12.0-15.5); LYMPH # 1.2 10^3/uL (1.5-5.0); LYMPH % 18.5 % (24.0-44.0); MEAN CORPUSCULAR HEMOGLOBIN 30.4 pg (27.0-33.0); MEAN CORPUSCULAR HGB CONC 33.2 g/dl (32.0-36.5); MEAN CORPUSCULAR VOLUME 91.6 fl (80.0-96.0); MONO # 0.4 10^3/uL (0.0-0.8); MONO % 6.6 % (2.0-8.0); NEUTROPHILS # 4.7 10^3/uL (1.5-8.5); NEUTROPHILS % 70.4 % (36.0-66.0); PLATELET COUNT, AUTOMATED 269 10^3/uL (150-450); RED BLOOD COUNT 3.45 10^6/uL (4.00-5.40); WHITE BLOOD COUNT 6.6 10^3/uL (4.0-10.0)
[2020-12-16 11:38] LABS: ALBUMIN 3.4 GM/DL (3.2-5.2); BILIRUBIN,TOTAL 0.2 MG/DL (0.2-1.0); CALCIUM LEVEL 9.5 MG/DL (8.8-10.2); CREATININE FOR GFR 1.08 MG/DL (0.55-1.30); GLOMERULAR FILTRATION RATE 54.7 (>45); POTASSIUM SERUM 3.4 MEQ/L (3.5-5.1); TOTAL PROTEIN 7.1 GM/DL (6.4-8.2)
[2020-12-16] MEDS: PALONOSETRON 250 MCG IV IV ONE (11:49)
[2020-12-16] MEDS: dexameTHASONE 10 MG IV IV ONE (11:49)
[2020-12-16] MEDS: diphenhydrAMINE 25 MG IV IV ONE (11:49)
[2020-12-16] MEDS: FOSAPREPITANT PERIPHERAL LINE 30 MIN INFUSION IV ONE (11:50)
[2020-12-16] MEDS: FAMOTIDINE 20 MG IV IV ONE (12:18)
[2020-12-16] MEDS: PACLITAXEL IV ONE (13:03)
[2020-12-16] MEDS: NS IV ONE (13:03)
[2020-12-16] MEDS: SODIUM CHLORIDE 0.9% INJ 10 ML SYR IV PRN (14:23)
[2020-12-23 10:47] VITALS: BP 113/66; O2SAT 95
[2020-12-23 10:58] LABS: BASO % 0.4 % (0.0-1.0); EOS # 0.2 10^3/uL (0.0-0.5); EOS % 2.3 % (0.0-3.0); HEMATOCRIT 31.5 % (36.0-47.0); HEMOGLOBIN 10.6 g/dl (12.0-15.5); LYMPH # 1.3 10^3/uL (1.5-5.0); LYMPH % 18.3 % (24.0-44.0); MEAN CORPUSCULAR HEMOGLOBIN 30.9 pg (27.0-33.0); MEAN CORPUSCULAR HGB CONC 33.7 g/dl (32.0-36.5); MEAN CORPUSCULAR VOLUME 91.8 fl (80.0-96.0); MONO # 0.4 10^3/uL (0.0-0.8); MONO % 6.1 % (2.0-8.0); NEUTROPHILS % 70.8 % (36.0-66.0); PLATELET COUNT, AUTOMATED 286 10^3/uL (150-450); RED BLOOD COUNT 3.43 10^6/uL (4.00-5.40); WHITE BLOOD COUNT 7.1 10^3/uL (4.0-10.0)
[2020-12-23 11:26] LABS: ALBUMIN 3.5 GM/DL (3.2-5.2); ALKALINE PHOSPHATASE 86 U/L (45-117); ALT/SGPT 19 U/L (12-78); AST/SGOT 13 U/L (7-37); BILIRUBIN,TOTAL 0.2 MG/DL (0.2-1.0); BLOOD UREA NITROGEN 29 MG/DL (7-18); CALCIUM LEVEL 9.2 MG/DL (8.8-10.2); CARBON DIOXIDE LEVEL 33 MEQ/L (21-32); CHLORIDE LEVEL 102 MEQ/L (98-107); CREATININE FOR GFR 0.88 MG/DL (0.55-1.30); GLOMERULAR FILTRATION RATE > 60.0 (>45); GLUCOSE, FASTING 142 MG/DL (70-100); POTASSIUM SERUM 3.5 MEQ/L (3.5-5.1); SODIUM LEVEL 138 MEQ/L (136-145); TOTAL PROTEIN 7.3 GM/DL (6.4-8.2)
[2020-12-23] MEDS: dexameTHASONE 10 MG IV IV ONE (11:56)
[2020-12-23] MEDS: PALONOSETRON 250 MCG IV IV ONE (11:56)
[2020-12-23] MEDS: FAMOTIDINE 20 MG IV IV ONE (11:56)
[2020-12-23] MEDS: diphenhydrAMINE 25 MG IV IV ONE (11:56)
[2020-12-23] MEDS: FOSAPREPITANT PERIPHERAL LINE 30 MIN INFUSION IV ONE (12:35)
[2020-12-23] MEDS: TRASTUZUMAB IV ONE (13:05)
[2020-12-23] MEDS: NS IV ONE ×2 (13:05→13:44)
[2020-12-23] MEDS: PACLITAXEL IV ONE (13:44)
[2020-12-23] MEDS: SODIUM CHLORIDE 0.9% INJ 10 ML SYR IV PRN (15:00)
[2020-12-30 11:08] VITALS: BP 95/60; O2SAT 97
[2020-12-30 11:20] LABS: BASO % 0.7 % (0.0-1.0); EOS # 0.2 10^3/uL (0.0-0.5); EOS % 2.5 % (0.0-3.0); LYMPH # 1.2 10^3/uL (1.5-5.0); LYMPH % 19.1 % (24.0-44.0); MEAN CORPUSCULAR HGB CONC 33.3 g/dl (32.0-36.5); MEAN CORPUSCULAR VOLUME 92.9 fl (80.0-96.0); MONO # 0.4 10^3/uL (0.0-0.8); MONO % 6.6 % (2.0-8.0); NEUTROPHILS # 4.2 10^3/uL (1.5-8.5); NEUTROPHILS % 68.3 % (36.0-66.0); PLATELET COUNT, AUTOMATED 273 10^3/uL (150-450); RED BLOOD COUNT 3.23 10^6/uL (4.00-5.40); WHITE BLOOD COUNT 6.1 10^3/uL (4.0-10.0)
[2020-12-30 11:54] LABS: ALBUMIN 3.3 GM/DL (3.2-5.2); BILIRUBIN,TOTAL 0.2 MG/DL (0.2-1.0); CALCIUM LEVEL 9.7 MG/DL (8.8-10.2); CREATININE FOR GFR 1.1 MG/DL (0.55-1.30); GLOMERULAR FILTRATION RATE 53.6 (>45); POTASSIUM SERUM 3.6 MEQ/L (3.5-5.1); TOTAL PROTEIN 6.6 GM/DL (6.4-8.2)
[2020-12-30] MEDS: FAMOTIDINE 20 MG IV IV ONE (12:09)
[2020-12-30] MEDS: diphenhydrAMINE 25 MG IV IV ONE (12:09)
[2020-12-30] MEDS: PALONOSETRON 250 MCG IV IV ONE (12:31)
[2020-12-30] MEDS: dexameTHASONE 10 MG IV IV ONE (12:31)
[2020-12-30] MEDS: FOSAPREPITANT PERIPHERAL LINE 30 MIN INFUSION IV ONE (12:52)
[2020-12-30] MEDS: NS IV ONE (13:22)
[2020-12-30] MEDS: PACLITAXEL IV ONE (13:22)
[2020-12-30] MEDS: SODIUM CHLORIDE 0.9% INJ 10 ML SYR IV PRN (14:36)
[2021-01-06 08:38] VITALS: BP 120/72; O2SAT 95
[2021-01-06 08:51] LABS: BASO # 0.1 10^3/uL (0.0-0.2); BASO % 0.8 % (0.0-1.0); EOS # 0.2 10^3/uL (0.0-0.5); EOS % 2.7 % (0.0-3.0); HEMATOCRIT 29.8 % (36.0-47.0); HEMOGLOBIN 10.1 g/dl (12.0-15.5); LYMPH # 1.3 10^3/uL (1.5-5.0); LYMPH % 19.1 % (24.0-44.0); MEAN CORPUSCULAR HEMOGLOBIN 31.9 pg (27.0-33.0); MEAN CORPUSCULAR HGB CONC 33.9 g/dl (32.0-36.5); MONO # 0.4 10^3/uL (0.0-0.8); MONO % 5.6 % (2.0-8.0); NEUTROPHILS # 4.5 10^3/uL (1.5-8.5); NEUTROPHILS % 68.5 % (36.0-66.0); PLATELET COUNT, AUTOMATED 270 10^3/uL (150-450); RED BLOOD COUNT 3.17 10^6/uL (4.00-5.40); WHITE BLOOD COUNT 6.6 10^3/uL (4.0-10.0)
[2021-01-06 09:20] LABS: ALBUMIN 3.2 GM/DL (3.2-5.2); BILIRUBIN,TOTAL 0.3 MG/DL (0.2-1.0); CALCIUM LEVEL 9.4 MG/DL (8.8-10.2); CREATININE FOR GFR 1.08 MG/DL (0.55-1.30); GLOMERULAR FILTRATION RATE 54.7 (>45); POTASSIUM SERUM 3.3 MEQ/L (3.5-5.1); TOTAL PROTEIN 6.7 GM/DL (6.4-8.2)
[2021-01-06] MEDS: dexameTHASONE 10 MG IV IV ONE (09:50)
[2021-01-06] MEDS: FAMOTIDINE 20 MG IV IV ONE (09:50)
[2021-01-06] MEDS: PALONOSETRON 250 MCG IV IV ONE (09:50)
[2021-01-06] MEDS: diphenhydrAMINE 25 MG IV IV ONE (09:50)
[2021-01-06] MEDS: FOSAPREPITANT PERIPHERAL LINE 30 MIN INFUSION IV ONE (10:30)
[2021-01-06] MEDS: NS IV ONE (10:56)
[2021-01-06] MEDS: PACLITAXEL IV ONE (10:56)
[2021-01-06] MEDS: SODIUM CHLORIDE 0.9% INJ 10 ML SYR IV PRN (12:13)
[2021-01-13 09:17] VITALS: BP 93/55; O2SAT 94
[2021-01-13 09:17] LABS: BASO % 0.6 % (0.0-1.0); EOS # 0.2 10^3/uL (0.0-0.5); EOS % 2.6 % (0.0-3.0); HEMOGLOBIN 10.4 g/dl (12.0-15.5); LYMPH # 1.4 10^3/uL (1.5-5.0); LYMPH % 19.4 % (24.0-44.0); MEAN CORPUSCULAR HEMOGLOBIN 31.8 pg (27.0-33.0); MEAN CORPUSCULAR HGB CONC 33.5 g/dl (32.0-36.5); MEAN CORPUSCULAR VOLUME 94.8 fl (80.0-96.0); MONO # 0.5 10^3/uL (0.0-0.8); MONO % 6.5 % (2.0-8.0); NEUTROPHILS # 4.9 10^3/uL (1.5-8.5); NEUTROPHILS % 69.3 % (36.0-66.0); PLATELET COUNT, AUTOMATED 295 10^3/uL (150-450); RED BLOOD COUNT 3.27 10^6/uL (4.00-5.40); WHITE BLOOD COUNT 7.1 10^3/uL (4.0-10.0)
[2021-01-13 09:40] LABS: ALBUMIN 3.4 GM/DL (3.2-5.2); BILIRUBIN,TOTAL 0.2 MG/DL (0.2-1.0); CREATININE FOR GFR 1.38 MG/DL (0.55-1.30); GLOMERULAR FILTRATION RATE 41.2 (>45); POTASSIUM SERUM 3.8 MEQ/L (3.5-5.1); TOTAL PROTEIN 6.9 GM/DL (6.4-8.2)
[2021-01-13] MEDS: diphenhydrAMINE 25 MG IV IV ONE (10:09)
[2021-01-13] MEDS: FAMOTIDINE 20 MG IV IV ONE (10:09)
[2021-01-13] MEDS: dexameTHASONE 10 MG IV IV ONE (10:10)
[2021-01-13] MEDS: PALONOSETRON 250 MCG IV IV ONE (10:10)
[2021-01-13] MEDS: FOSAPREPITANT PERIPHERAL LINE 30 MIN INFUSION IV ONE (10:15)
[2021-01-13] MEDS: NS IV ONE ×2 (11:24→12:00)
[2021-01-13] MEDS: TRASTUZUMAB IV ONE (11:24)
[2021-01-13] MEDS: PACLITAXEL IV ONE (12:00)
[2021-01-13] MEDS: SODIUM CHLORIDE 0.9% INJ 10 ML SYR IV PRN (13:08)
[2021-01-20 09:15] VITALS: BP 97/60; O2SAT 93
[2021-01-20 09:31] LABS: BASO % 0.5 % (0.0-1.0); EOS # 0.2 10^3/uL (0.0-0.5); EOS % 2.6 % (0.0-3.0); HEMATOCRIT 28.4 % (36.0-47.0); HEMOGLOBIN 9.6 g/dl (12.0-15.5); LYMPH # 1.3 10^3/uL (1.5-5.0); LYMPH % 19.7 % (24.0-44.0); MEAN CORPUSCULAR HEMOGLOBIN 32.3 pg (27.0-33.0); MEAN CORPUSCULAR HGB CONC 33.8 g/dl (32.0-36.5); MEAN CORPUSCULAR VOLUME 95.6 fl (80.0-96.0); MONO # 0.4 10^3/uL (0.0-0.8); MONO % 6.2 % (2.0-8.0); NEUTROPHILS # 4.6 10^3/uL (1.5-8.5); NEUTROPHILS % 68.9 % (36.0-66.0); PLATELET COUNT, AUTOMATED 259 10^3/uL (150-450); RED BLOOD COUNT 2.97 10^6/uL (4.00-5.40); WHITE BLOOD COUNT 6.6 10^3/uL (4.0-10.0)
[2021-01-20 09:48] LABS: ALBUMIN 3.2 GM/DL (3.2-5.2); BILIRUBIN,TOTAL 0.2 MG/DL (0.2-1.0); CALCIUM LEVEL 8.9 MG/DL (8.8-10.2); CREATININE FOR GFR 1.15 MG/DL (0.55-1.30); GLOMERULAR FILTRATION RATE 50.9 (>45); POTASSIUM SERUM 3.5 MEQ/L (3.5-5.1); TOTAL PROTEIN 6.8 GM/DL (6.4-8.2)
[2021-01-20] MEDS: FOSAPREPITANT PERIPHERAL LINE 30 MIN INFUSION IV ONE (10:15)
[2021-01-20] MEDS: diphenhydrAMINE 25 MG IV IV ONE (10:16)
[2021-01-20] MEDS: PALONOSETRON 250 MCG IV IV ONE (10:17)
[2021-01-20] MEDS: dexameTHASONE 10 MG IV IV ONE (10:18)
[2021-01-20] MEDS: FAMOTIDINE 20 MG IV IV ONE (10:45)
[2021-01-20] MEDS: PACLITAXEL IV ONE (11:23)
[2021-01-20] MEDS: NS IV ONE (11:23)
[2021-01-20] MEDS: SODIUM CHLORIDE 0.9% INJ 10 ML SYR IV PRN (12:32)
[2021-01-27 08:52] LABS: BASO % 0.6 % (0.0-1.0); EOS # 0.2 10^3/uL (0.0-0.5); EOS % 2.3 % (0.0-3.0); HEMATOCRIT 28.5 % (36.0-47.0); HEMOGLOBIN 9.5 g/dl (12.0-15.5); LYMPH # 1.1 10^3/uL (1.5-5.0); LYMPH % 16.3 % (24.0-44.0); MEAN CORPUSCULAR HEMOGLOBIN 32.3 pg (27.0-33.0); MEAN CORPUSCULAR HGB CONC 33.3 g/dl (32.0-36.5); MEAN CORPUSCULAR VOLUME 96.9 fl (80.0-96.0); MONO # 0.4 10^3/uL (0.0-0.8); MONO % 6.6 % (2.0-8.0); NEUTROPHILS # 4.6 10^3/uL (1.5-8.5); NEUTROPHILS % 70.5 % (36.0-66.0); PLATELET COUNT, AUTOMATED 277 10^3/uL (150-450); RED BLOOD COUNT 2.94 10^6/uL (4.00-5.40); WHITE BLOOD COUNT 6.5 10^3/uL (4.0-10.0)
[2021-01-27 09:05] VITALS: BP 133/77; O2SAT 95
[2021-01-27 09:22] LABS: ALBUMIN 3.1 GM/DL (3.2-5.2); BILIRUBIN,TOTAL 0.2 MG/DL (0.2-1.0); CALCIUM LEVEL 9.2 MG/DL (8.8-10.2); CREATININE FOR GFR 1.1 MG/DL (0.55-1.30); GLOMERULAR FILTRATION RATE 53.6 (>45); POTASSIUM SERUM 3.5 MEQ/L (3.5-5.1); TOTAL PROTEIN 6.8 GM/DL (6.4-8.2)
[2021-01-27] MEDS: dexameTHASONE 10 MG IV IV ONE (09:41)
[2021-01-27] MEDS: FOSAPREPITANT PERIPHERAL LINE 30 MIN INFUSION IV ONE (09:41)
[2021-01-27] MEDS: PALONOSETRON 250 MCG IV IV ONE (09:41)
[2021-01-27] MEDS: diphenhydrAMINE 25 MG IV IV ONE (10:20)
[2021-01-27] MEDS: FAMOTIDINE 20 MG IV IV ONE (10:20)
[2021-01-27] MEDS: NS IV ONE (11:16)
[2021-01-27] MEDS: PACLITAXEL IV ONE (11:16)
[2021-01-27] MEDS: SODIUM CHLORIDE 0.9% INJ 10 ML SYR IV PRN (12:17)
[2021-02-23 08:42] LABS: BASO % 0.6 % (0.0-1.0); EOS # 0.3 10^3/uL (0.0-0.5); EOS % 4.6 % (0.0-3.0); HEMATOCRIT 29.8 % (36.0-47.0); HEMOGLOBIN 9.5 g/dl (12.0-15.5); LYMPH # 1.2 10^3/uL (1.5-5.0); LYMPH % 17.3 % (24.0-44.0); MEAN CORPUSCULAR HEMOGLOBIN 31.3 pg (27.0-33.0); MEAN CORPUSCULAR HGB CONC 31.9 g/dl (32.0-36.5); MONO # 0.5 10^3/uL (0.0-0.8); MONO % 6.8 % (2.0-8.0); NEUTROPHILS # 4.8 10^3/uL (1.5-8.5); NEUTROPHILS % 69.7 % (36.0-66.0); PLATELET COUNT, AUTOMATED 247 10^3/uL (150-450); RED BLOOD COUNT 3.04 10^6/uL (4.00-5.40); WHITE BLOOD COUNT 6.9 10^3/uL (4.0-10.0)
[2021-02-23 09:04] LABS: ALBUMIN 3.2 GM/DL (3.2-5.2); ALKALINE PHOSPHATASE 73 U/L (45-117); ALT/SGPT 14 U/L (12-78); AST/SGOT 11 U/L (7-37); BILIRUBIN,TOTAL 0.3 MG/DL (0.2-1.0); BLOOD UREA NITROGEN 17 MG/DL (7-18); CALCIUM LEVEL 9.1 MG/DL (8.8-10.2); CARBON DIOXIDE LEVEL 31 MEQ/L (21-32); CHLORIDE LEVEL 104 MEQ/L (98-107); CREATININE FOR GFR 0.87 MG/DL (0.55-1.30); GLOMERULAR FILTRATION RATE > 60.0 (>45); GLUCOSE, FASTING 146 MG/DL (70-100); POTASSIUM SERUM 3.3 MEQ/L (3.5-5.1); SODIUM LEVEL 141 MEQ/L (136-145); TOTAL PROTEIN 6.7 GM/DL (6.4-8.2)
[2021-02-23 09:18] VITALS: BP 121/74; O2SAT 97
[2021-02-23 11:09] LABS: IRON (FE) 48 UG/DL (50-170); TOTAL IRON BINDING CAPACITY 300 UG/DL (250-450)
[2021-02-23 12:14] LABS: CA15-3 ANTIGEN 35.1 U/ML (<32.4); FOLATE 9.6 NG/ML (>5.4)
[2021-02-25 16:08] LABS: SOLUBLE TRANSFERRIN RECEPTOR 36.6 nmol/L (12.2-27.3)
[2021-03-23 10:45] VITALS: BP 97/57; O2SAT 95
[2021-03-23] MEDS: ACETAMINOPHEN TAB 650MG DOSE (2X325MG) PO SCH (11:20)
[2021-03-23] MEDS: diphenhydrAMINE 25MG CAP PO SCH (11:20)
[2021-03-23] MEDS: FERRIC CARBOXYMALTOSE INJ 750 MG, VIAL MATE ADAPTER 1 EACH in NS 250 ML IV SCH (11:58)
[2021-03-23] MEDS: SODIUM CHLORIDE 0.9% INJ 10 ML SYR IV PRN (13:13)
[2021-03-23 14:30] VITALS: BP 110/63; O2SAT 98
[2021-03-28] MEDS: SODIUM CHLORIDE 0.9% INJ 10 ML SYR IV PRN (08:44)
[2021-03-28 08:50] VITALS: BP 106/66; O2SAT 95
[2021-03-28 08:58] LABS: BASO # 0.1 10^3/uL (0.0-0.2); BASO % 0.7 % (0.0-1.0); EOS # 0.2 10^3/uL (0.0-0.5); EOS % 3.4 % (0.0-3.0); HEMATOCRIT 32.3 % (36.0-47.0); HEMOGLOBIN 10.4 g/dl (12.0-15.5); LYMPH # 1.2 10^3/uL (1.5-5.0); LYMPH % 17.3 % (24.0-44.0); MEAN CORPUSCULAR HGB CONC 32.2 g/dl (32.0-36.5); MEAN CORPUSCULAR VOLUME 96.1 fl (80.0-96.0); MONO # 0.6 10^3/uL (0.0-0.8); MONO % 8.6 % (2.0-8.0); NEUTROPHILS # 4.6 10^3/uL (1.5-8.5); NEUTROPHILS % 69.1 % (36.0-66.0); PLATELET COUNT, AUTOMATED 244 10^3/uL (150-450); RED BLOOD COUNT 3.36 10^6/uL (4.00-5.40); WHITE BLOOD COUNT 6.7 10^3/uL (4.0-10.0)
[2021-03-28 09:34] LABS: ALBUMIN 3.6 GM/DL (3.2-5.2); BILIRUBIN,TOTAL 0.2 MG/DL (0.2-1.0); CALCIUM LEVEL 9.6 MG/DL (8.8-10.2); CREATININE FOR GFR 1.22 MG/DL (0.55-1.30); GLOMERULAR FILTRATION RATE 47.5 (>45); TOTAL PROTEIN 7.3 GM/DL (6.4-8.2)
[2021-04-01] MEDS: ACETAMINOPHEN TAB 650MG DOSE (2X325MG) PO SCH
[2021-04-01 10:30] VITALS: BP 123/67; O2SAT 96
[2021-04-01] MEDS: diphenhydrAMINE 25MG CAP PO SCH (11:49)
[2021-04-01] MEDS: FERRIC CARBOXYMALTOSE INJ 750 MG, VIAL MATE ADAPTER 1 EACH in NS 250 ML IV SCH (12:21)
[2021-04-01] MEDS: SODIUM CHLORIDE 0.9% INJ 10 ML SYR IV PRN (13:35)
[2021-04-01 13:55] VITALS: BP 106/55; O2SAT 98
[2021-05-11 11:30] VITALS: BP 115/71; O2SAT 97
[2021-05-11 11:32] LABS: BASO % 0.5 % (0.0-1.0); EOS # 0.2 10^3/uL (0.0-0.5); EOS % 3.1 % (0.0-3.0); HEMATOCRIT 35.5 % (36.0-47.0); HEMOGLOBIN 11.8 g/dl (12.0-15.5); LYMPH # 0.8 10^3/uL (1.5-5.0); LYMPH % 13.6 % (24.0-44.0); MEAN CORPUSCULAR HEMOGLOBIN 31.6 pg (27.0-33.0); MEAN CORPUSCULAR HGB CONC 33.2 g/dl (32.0-36.5); MEAN CORPUSCULAR VOLUME 94.9 fl (80.0-96.0); MONO # 0.5 10^3/uL (0.0-0.8); MONO % 8.3 % (2.0-8.0); NEUTROPHILS # 4.6 10^3/uL (1.5-8.5); NEUTROPHILS % 73.9 % (36.0-66.0); PLATELET COUNT, AUTOMATED 257 10^3/uL (150-450); RED BLOOD COUNT 3.74 10^6/uL (4.00-5.40); WHITE BLOOD COUNT 6.2 10^3/uL (4.0-10.0)
[2021-05-11] MEDS: SODIUM CHLORIDE 0.9% INJ 10 ML SYR IV PRN (12:17)
[2021-05-11 13:03] LABS: CA15-3 ANTIGEN 24.4 U/ML (<32.4); CARCINOEMBRYONIC ANTIGEN 3.4 NG/ML (<2.5)
[2021-05-13 15:24] LABS: ALBUMIN 3.6 GM/DL (3.2-5.2); BILIRUBIN,TOTAL 0.2 MG/DL (0.2-1.0); CALCIUM LEVEL 9.5 MG/DL (8.8-10.2); CREATININE FOR GFR 1.03 MG/DL (0.55-1.30); GLOMERULAR FILTRATION RATE 57.6 (>45); POTASSIUM SERUM 3.9 MEQ/L (3.5-5.1)
[2021-05-23 10:20] VITALS: BP 138/81; O2SAT 96
[2021-05-23 10:20] LABS: BASO % 0.5 % (0.0-1.0); EOS # 0.2 10^3/uL (0.0-0.5); EOS % 3.5 % (0.0-3.0); HEMATOCRIT 33.7 % (36.0-47.0); HEMOGLOBIN 11.2 g/dl (12.0-15.5); LYMPH # 0.9 10^3/uL (1.5-5.0); LYMPH % 14.1 % (24.0-44.0); MEAN CORPUSCULAR HEMOGLOBIN 31.6 pg (27.0-33.0); MEAN CORPUSCULAR HGB CONC 33.2 g/dl (32.0-36.5); MEAN CORPUSCULAR VOLUME 95.2 fl (80.0-96.0); MONO # 0.5 10^3/uL (0.0-0.8); NEUTROPHILS # 4.6 10^3/uL (1.5-8.5); NEUTROPHILS % 73.4 % (36.0-66.0); PLATELET COUNT, AUTOMATED 219 10^3/uL (150-450); RED BLOOD COUNT 3.54 10^6/uL (4.00-5.40); WHITE BLOOD COUNT 6.3 10^3/uL (4.0-10.0)
[2021-05-23 10:45] LABS: ALBUMIN 3.4 GM/DL (3.2-5.2); ALKALINE PHOSPHATASE 90 U/L (45-117); ALT/SGPT 20 U/L (12-78); AST/SGOT 13 U/L (7-37); BILIRUBIN,TOTAL 0.2 MG/DL (0.2-1.0); BLOOD UREA NITROGEN 29 MG/DL (7-18); CALCIUM LEVEL 9.6 MG/DL (8.8-10.2); CARBON DIOXIDE LEVEL 31 MEQ/L (21-32); CHLORIDE LEVEL 106 MEQ/L (98-107); CREATININE FOR GFR 0.79 MG/DL (0.55-1.30); GLOMERULAR FILTRATION RATE > 60.0 (>45); GLUCOSE, FASTING 138 MG/DL (70-100); POTASSIUM SERUM 3.6 MEQ/L (3.5-5.1); SODIUM LEVEL 143 MEQ/L (136-145); TOTAL PROTEIN 6.9 GM/DL (6.4-8.2)
[2021-05-23] MEDS: dexameTHASONE 10 MG PO PO ONE (11:16)
[2021-05-23] MEDS: PROCHLORPERAZINE 10 MG PO PO ONE (11:17)
[2021-05-23] MEDS: TRASTUZUMAB IV ONE (12:03)
[2021-05-23] MEDS: NS IV ONE (12:03)
[2021-05-23 12:16] LABS: CA15-3 ANTIGEN 19.1 U/ML (<32.4)
[2021-05-23] MEDS: SODIUM CHLORIDE 0.9% INJ 10 ML SYR IV PRN (13:42)
[2021-06-13 10:35] VITALS: BP 143/43; O2SAT 94
[2021-06-13 10:47] LABS: BASO % 0.5 % (0.0-1.0); EOS # 0.2 10^3/uL (0.0-0.5); HEMATOCRIT 33.5 % (36.0-47.0); HEMOGLOBIN 11.4 g/dl (12.0-15.5); LYMPH % 15.6 % (24.0-44.0); MEAN CORPUSCULAR HEMOGLOBIN 32.9 pg (27.0-33.0); MEAN CORPUSCULAR VOLUME 96.8 fl (80.0-96.0); MONO # 0.5 10^3/uL (0.0-0.8); MONO % 8.1 % (2.0-8.0); NEUTROPHILS # 4.6 10^3/uL (1.5-8.5); NEUTROPHILS % 71.9 % (36.0-66.0); PLATELET COUNT, AUTOMATED 229 10^3/uL (150-450); RED BLOOD COUNT 3.46 10^6/uL (4.00-5.40); WHITE BLOOD COUNT 6.4 10^3/uL (4.0-10.0)
[2021-06-13 11:18] LABS: ALBUMIN 3.2 GM/DL (3.2-5.2); ALKALINE PHOSPHATASE 99 U/L (45-117); ALT/SGPT 20 U/L (12-78); AST/SGOT 16 U/L (7-37); BILIRUBIN,TOTAL 0.3 MG/DL (0.2-1.0); BLOOD UREA NITROGEN 19 MG/DL (7-18); CALCIUM LEVEL 8.9 MG/DL (8.8-10.2); CARBON DIOXIDE LEVEL 32 MEQ/L (21-32); CHLORIDE LEVEL 106 MEQ/L (98-107); CREATININE FOR GFR 0.92 MG/DL (0.55-1.30); GLOMERULAR FILTRATION RATE > 60.0 (>45); GLUCOSE, FASTING 140 MG/DL (70-100); POTASSIUM SERUM 3.5 MEQ/L (3.5-5.1); SODIUM LEVEL 142 MEQ/L (136-145); TOTAL PROTEIN 6.9 GM/DL (6.4-8.2)
[2021-06-13] MEDS: dexameTHASONE 10 MG PO PO ONE (11:34)
[2021-06-13] MEDS: PROCHLORPERAZINE 10 MG PO PO ONE (11:34)
[2021-06-13] MEDS: NS IV ONE (12:19)
[2021-06-13] MEDS: TRASTUZUMAB IV ONE (12:19)
[2021-06-13] MEDS: SODIUM CHLORIDE 0.9% INJ 10 ML SYR IV PRN (12:55)
[2021-07-05 10:19] LABS: BASO % 0.3 % (0.0-1.0); EOS # 0.2 10^3/uL (0.0-0.5); EOS % 2.7 % (0.0-3.0); HEMATOCRIT 33.2 % (36.0-47.0); LYMPH # 0.8 10^3/uL (1.5-5.0); LYMPH % 11.5 % (24.0-44.0); MEAN CORPUSCULAR HGB CONC 33.1 g/dl (32.0-36.5); MEAN CORPUSCULAR VOLUME 96.5 fl (80.0-96.0); MONO # 0.5 10^3/uL (0.0-0.8); MONO % 6.8 % (2.0-8.0); NEUTROPHILS # 5.1 10^3/uL (1.5-8.5); NEUTROPHILS % 77.9 % (36.0-66.0); PLATELET COUNT, AUTOMATED 214 10^3/uL (150-450); RED BLOOD COUNT 3.44 10^6/uL (4.00-5.40); WHITE BLOOD COUNT 6.6 10^3/uL (4.0-10.0)
[2021-07-05 10:27] VITALS: BP 136/79; O2SAT 96
[2021-07-05 10:44] LABS: ALBUMIN 3.2 GM/DL (3.2-5.2); ALKALINE PHOSPHATASE 93 U/L (45-117); ALT/SGPT 20 U/L (12-78); AST/SGOT 11 U/L (7-37); BILIRUBIN,TOTAL 0.3 MG/DL (0.2-1.0); BLOOD UREA NITROGEN 22 MG/DL (7-18); CALCIUM LEVEL 9.3 MG/DL (8.8-10.2); CARBON DIOXIDE LEVEL 33 MEQ/L (21-32); CHLORIDE LEVEL 106 MEQ/L (98-107); CREATININE FOR GFR 0.94 MG/DL (0.55-1.30); GLOMERULAR FILTRATION RATE > 60.0 (>45); GLUCOSE, FASTING 160 MG/DL (70-100); POTASSIUM SERUM 3.6 MEQ/L (3.5-5.1); SODIUM LEVEL 143 MEQ/L (136-145); TOTAL PROTEIN 6.8 GM/DL (6.4-8.2)
[2021-07-05] MEDS: dexameTHASONE 10 MG PO PO ONE (11:14)
[2021-07-05] MEDS: PROCHLORPERAZINE 10 MG PO PO ONE (11:14)
[2021-07-05 12:06] LABS: CA15-3 ANTIGEN 25.4 U/ML (<32.4); CARCINOEMBRYONIC ANTIGEN 3.2 NG/ML (<2.5)
[2021-07-05] MEDS: NS IV ONE (12:12)
[2021-07-05] MEDS: TRASTUZUMAB IV ONE (12:12)
[2021-07-05] MEDS: SODIUM CHLORIDE 0.9% INJ 10 ML SYR IV PRN (12:51)
[2021-07-26 10:23] LABS: BASO % 0.3 % (0.0-1.0); EOS # 0.2 10^3/uL (0.0-0.5); EOS % 2.5 % (0.0-3.0); HEMATOCRIT 34.4 % (36.0-47.0); HEMOGLOBIN 11.7 g/dl (12.0-15.5); LYMPH # 0.9 10^3/uL (1.5-5.0); LYMPH % 11.2 % (24.0-44.0); MEAN CORPUSCULAR HEMOGLOBIN 32.3 pg (27.0-33.0); MONO # 0.5 10^3/uL (0.0-0.8); NEUTROPHILS # 6.1 10^3/uL (1.5-8.5); PLATELET COUNT, AUTOMATED 247 10^3/uL (150-450); RED BLOOD COUNT 3.62 10^6/uL (4.00-5.40); WHITE BLOOD COUNT 7.7 10^3/uL (4.0-10.0)
[2021-07-26 10:53] LABS: ALBUMIN 3.3 GM/DL (3.2-5.2); BILIRUBIN,TOTAL 0.2 MG/DL (0.2-1.0); CALCIUM LEVEL 9.5 MG/DL (8.8-10.2); CREATININE FOR GFR 1.03 MG/DL (0.55-1.30); GLOMERULAR FILTRATION RATE 57.6 (>45); POTASSIUM SERUM 3.8 MEQ/L (3.5-5.1); TOTAL PROTEIN 7.3 GM/DL (6.4-8.2)
[2021-07-26 11:03] VITALS: BP 150/86; O2SAT 97
[2021-07-26] MEDS: PROCHLORPERAZINE 10 MG PO PO ONE (11:43)
[2021-07-26] MEDS: dexameTHASONE 10 MG PO PO ONE (11:44)
[2021-07-26] MEDS: TRASTUZUMAB IV ONE (12:28)
[2021-07-26] MEDS: NS IV ONE (12:28)
[2021-08-15 09:45] VITALS: BP 106/61; O2SAT 96
[2021-08-15 09:57] LABS: BASO % 0.3 % (0.0-1.0); EOS # 0.2 10^3/uL (0.0-0.5); EOS % 2.8 % (0.0-3.0); HEMATOCRIT 33.7 % (36.0-47.0); HEMOGLOBIN 11.3 g/dl (12.0-15.5); LYMPH # 0.9 10^3/uL (1.5-5.0); LYMPH % 13.8 % (24.0-44.0); MEAN CORPUSCULAR HEMOGLOBIN 31.9 pg (27.0-33.0); MEAN CORPUSCULAR HGB CONC 33.5 g/dl (32.0-36.5); MEAN CORPUSCULAR VOLUME 95.2 fl (80.0-96.0); MONO # 0.5 10^3/uL (0.0-0.8); MONO % 7.6 % (2.0-8.0); NEUTROPHILS # 5.1 10^3/uL (1.5-8.5); NEUTROPHILS % 74.9 % (36.0-66.0); PLATELET COUNT, AUTOMATED 243 10^3/uL (150-450); RED BLOOD COUNT 3.54 10^6/uL (4.00-5.40); WHITE BLOOD COUNT 6.8 10^3/uL (4.0-10.0)
[2021-08-15 10:26] LABS: ALBUMIN 3.2 GM/DL (3.2-5.2); ALKALINE PHOSPHATASE 99 U/L (45-117); ALT/SGPT 19 U/L (12-78); AST/SGOT 12 U/L (7-37); BILIRUBIN,TOTAL 0.3 MG/DL (0.2-1.0); BLOOD UREA NITROGEN 19 MG/DL (7-18); CALCIUM LEVEL 9.6 MG/DL (8.8-10.2); CARBON DIOXIDE LEVEL 31 MEQ/L (21-32); CHLORIDE LEVEL 104 MEQ/L (98-107); CREATININE FOR GFR 0.84 MG/DL (0.55-1.30); GLOMERULAR FILTRATION RATE > 60.0 (>45); GLUCOSE, FASTING 180 MG/DL (70-100); POTASSIUM SERUM 3.4 MEQ/L (3.5-5.1); SODIUM LEVEL 141 MEQ/L (136-145)
[2021-08-15] MEDS: dexameTHASONE 10 MG PO PO ONE (10:36)
[2021-08-15] MEDS: PROCHLORPERAZINE 10 MG PO PO ONE (10:36)
[2021-08-15] MEDS: TRASTUZUMAB IV ONE (11:12)
[2021-08-15] MEDS: NS IV ONE (11:12)
[2021-08-15] MEDS: SODIUM CHLORIDE 0.9% INJ 10 ML SYR IV PRN (11:50)
[2021-09-06 09:32] LABS: BASO % 0.4 % (0.0-1.0); EOS # 0.2 10^3/uL (0.0-0.5); EOS % 2.4 % (0.0-3.0); HEMATOCRIT 36.2 % (36.0-47.0); HEMOGLOBIN 12.1 g/dl (12.0-15.5); LYMPH # 0.9 10^3/uL (1.5-5.0); LYMPH % 13.4 % (24.0-44.0); MEAN CORPUSCULAR HEMOGLOBIN 31.8 pg (27.0-33.0); MEAN CORPUSCULAR HGB CONC 33.4 g/dl (32.0-36.5); MONO # 0.5 10^3/uL (0.0-0.8); MONO % 6.5 % (2.0-8.0); NEUTROPHILS # 5.4 10^3/uL (1.5-8.5); NEUTROPHILS % 76.4 % (36.0-66.0); PLATELET COUNT, AUTOMATED 268 10^3/uL (150-450); RED BLOOD COUNT 3.81 10^6/uL (4.00-5.40)
[2021-09-06 09:58] VITALS: BP 162/79; O2SAT 96
[2021-09-06 10:03] LABS: ALBUMIN 3.4 GM/DL (3.2-5.2); ALKALINE PHOSPHATASE 102 U/L (45-117); ALT/SGPT 21 U/L (12-78); AST/SGOT 12 U/L (7-37); BILIRUBIN,TOTAL 0.4 MG/DL (0.2-1.0); BLOOD UREA NITROGEN 24 MG/DL (7-18); CALCIUM LEVEL 9.7 MG/DL (8.8-10.2); CARBON DIOXIDE LEVEL 30 MEQ/L (21-32); CHLORIDE LEVEL 103 MEQ/L (98-107); CREATININE FOR GFR 0.95 MG/DL (0.55-1.30); GLOMERULAR FILTRATION RATE > 60.0 (>45); GLUCOSE, FASTING 195 MG/DL (70-100); POTASSIUM SERUM 3.5 MEQ/L (3.5-5.1); SODIUM LEVEL 141 MEQ/L (136-145); TOTAL PROTEIN 7.5 GM/DL (6.4-8.2)
[2021-09-06] MEDS: PROCHLORPERAZINE 10 MG PO PO ONE (10:53)
[2021-09-06] MEDS: dexameTHASONE 10 MG PO PO ONE (10:53)
[2021-09-06] MEDS: TRASTUZUMAB IV ONE (11:15)
[2021-09-06] MEDS: NS IV ONE (11:15)
[2021-09-06] MEDS: SODIUM CHLORIDE 0.9% INJ 10 ML SYR IV PRN (11:51)
[2021-09-27 09:25] VITALS: BP 107/67; O2SAT 95
[2021-09-27 09:37] LABS: BASO % 0.6 % (0.0-1.0); EOS # 0.2 10^3/uL (0.0-0.5); EOS % 3.4 % (0.0-3.0); HEMOGLOBIN 11.6 g/dl (12.0-15.5); LYMPH # 0.9 10^3/uL (1.5-5.0); LYMPH % 13.2 % (24.0-44.0); MEAN CORPUSCULAR HEMOGLOBIN 31.3 pg (27.0-33.0); MEAN CORPUSCULAR HGB CONC 33.1 g/dl (32.0-36.5); MEAN CORPUSCULAR VOLUME 94.3 fl (80.0-96.0); MONO # 0.4 10^3/uL (0.0-0.8); NEUTROPHILS # 5.4 10^3/uL (1.5-8.5); NEUTROPHILS % 75.8 % (36.0-66.0); PLATELET COUNT, AUTOMATED 237 10^3/uL (150-450); RED BLOOD COUNT 3.71 10^6/uL (4.00-5.40); WHITE BLOOD COUNT 7.1 10^3/uL (4.0-10.0)
[2021-09-27 10:00] LABS: BLOOD UREA NITROGEN 26 MG/DL (7-18); CARBON DIOXIDE LEVEL 30 MEQ/L (21-32); CHLORIDE LEVEL 104 MEQ/L (98-107); CREATININE FOR GFR 0.96 MG/DL (0.55-1.30); GLOMERULAR FILTRATION RATE > 60.0 (>45); GLUCOSE, FASTING 184 MG/DL (70-100); POTASSIUM SERUM 3.7 MEQ/L (3.5-5.1); SODIUM LEVEL 140 MEQ/L (136-145)
[2021-09-27 10:01] LABS: ALBUMIN 3.4 GM/DL (3.2-5.2); ALKALINE PHOSPHATASE 95 U/L (45-117); ALT/SGPT 21 U/L (12-78); AST/SGOT 12 U/L (7-37); BILIRUBIN,TOTAL 0.2 MG/DL (0.2-1.0); CALCIUM LEVEL 9.5 MG/DL (8.8-10.2); TOTAL PROTEIN 7.2 GM/DL (6.4-8.2)
[2021-09-27] MEDS: PROCHLORPERAZINE 10 MG PO PO ONE (10:15)
[2021-09-27] MEDS: dexameTHASONE 10 MG PO PO ONE (10:15)
[2021-09-27] MEDS: NS IV ONE (11:08)
[2021-09-27] MEDS: TRASTUZUMAB IV ONE (11:08)
[2021-09-27] MEDS: SODIUM CHLORIDE 0.9% INJ 10 ML SYR IV PRN (11:44)
[2021-10-18] MEDS: dexameTHASONE 10 MG PO PO ONE (12:30)
[2021-10-18] MEDS: PROCHLORPERAZINE 10 MG PO PO ONE (12:30)
[2021-10-18] MEDS: NS IV ONE (13:00)
[2021-10-18] MEDS: TRASTUZUMAB IV ONE (13:00)
[2021-10-21] MEDS: PROCHLORPERAZINE 10 MG PO PO ONE (10:30)
[2021-10-21] MEDS: dexameTHASONE 10 MG PO PO ONE (10:30)
[2021-10-21] MEDS: NS IV ONE (11:30)
[2021-10-21] MEDS: TRASTUZUMAB IV ONE (11:30)
[2021-10-27] MEDS: PROCHLORPERAZINE 10 MG PO PO ONE (11:45)
[2021-10-27] MEDS: dexameTHASONE 10 MG PO PO ONE (11:45)
[2021-10-27] MEDS: NS IV ONE (12:45)
[2021-10-27] MEDS: TRASTUZUMAB IV ONE (12:45)
[2021-10-31 10:37] VITALS: BP 136/73; O2SAT 93
[2021-10-31 10:56] LABS: BASO % 0.4 % (0.0-1.0); EOS # 0.2 10^3/uL (0.0-0.5); EOS % 2.7 % (0.0-3.0); HEMATOCRIT 34.6 % (36.0-47.0); HEMOGLOBIN 11.7 g/dl (12.0-15.5); LYMPH # 0.9 10^3/uL (1.5-5.0); LYMPH % 13.7 % (24.0-44.0); MEAN CORPUSCULAR HEMOGLOBIN 31.5 pg (27.0-33.0); MEAN CORPUSCULAR HGB CONC 33.8 g/dl (32.0-36.5); MONO # 0.5 10^3/uL (0.0-0.8); MONO % 7.7 % (2.0-8.0); NEUTROPHILS # 5.1 10^3/uL (1.5-8.5); NEUTROPHILS % 74.6 % (36.0-66.0); PLATELET COUNT, AUTOMATED 261 10^3/uL (150-450); RED BLOOD COUNT 3.72 10^6/uL (4.00-5.40); WHITE BLOOD COUNT 6.8 10^3/uL (4.0-10.0)
[2021-10-31 11:31] LABS: ALBUMIN 3.4 GM/DL (3.2-5.2); ALKALINE PHOSPHATASE 90 U/L (45-117); ALT/SGPT 20 U/L (12-78); AST/SGOT 12 U/L (7-37); BILIRUBIN,TOTAL 0.3 MG/DL (0.2-1.0); BLOOD UREA NITROGEN 22 MG/DL (7-18); CALCIUM LEVEL 9.8 MG/DL (8.8-10.2); CARBON DIOXIDE LEVEL 31 MEQ/L (21-32); CHLORIDE LEVEL 104 MEQ/L (98-107); CREATININE FOR GFR 0.95 MG/DL (0.55-1.30); GLOMERULAR FILTRATION RATE > 60.0 (>45); GLUCOSE, FASTING 144 MG/DL (70-100); POTASSIUM SERUM 3.7 MEQ/L (3.5-5.1); SODIUM LEVEL 141 MEQ/L (136-145); TOTAL PROTEIN 6.9 GM/DL (6.4-8.2)
[2021-10-31] MEDS: PROCHLORPERAZINE 5MG TAB PO ONE (12:30)
[2021-10-31] MEDS: dexAMETHasone 4 MG TAB PO ONE (12:30)
[2021-10-31] MEDS: NS IV ONE (12:32)
[2021-10-31] MEDS: TRASTUZUMAB IV ONE (12:32)
[2021-10-31] MEDS: SODIUM CHLORIDE 0.9% INJ 10 ML SYR IV PRN (13:07)
[2021-11-21 10:12] VITALS: BP 113/65; O2SAT 94
[2021-11-21 10:34] LABS: BASO % 0.5 % (0.0-1.0); EOS # 0.2 10^3/uL (0.0-0.5); EOS % 3.6 % (0.0-3.0); HEMATOCRIT 34.8 % (36.0-47.0); HEMOGLOBIN 11.7 g/dl (12.0-15.5); LYMPH # 0.9 10^3/uL (1.5-5.0); LYMPH % 15.2 % (24.0-44.0); MEAN CORPUSCULAR HEMOGLOBIN 31.8 pg (27.0-33.0); MEAN CORPUSCULAR HGB CONC 33.6 g/dl (32.0-36.5); MEAN CORPUSCULAR VOLUME 94.6 fl (80.0-96.0); MONO # 0.5 10^3/uL (0.0-0.8); MONO % 7.8 % (2.0-8.0); NEUTROPHILS # 4.4 10^3/uL (1.5-8.5); NEUTROPHILS % 71.9 % (36.0-66.0); PLATELET COUNT, AUTOMATED 236 10^3/uL (150-450); RED BLOOD COUNT 3.68 10^6/uL (4.00-5.40); WHITE BLOOD COUNT 6.1 10^3/uL (4.0-10.0)
[2021-11-21 11:12] LABS: ALBUMIN 3.3 GM/DL (3.2-5.2); ALKALINE PHOSPHATASE 90 U/L (45-117); ALT/SGPT 27 U/L (12-78); AST/SGOT 20 U/L (7-37); BILIRUBIN,TOTAL 0.7 MG/DL (0.2-1.0); BLOOD UREA NITROGEN 18 MG/DL (7-18); CALCIUM LEVEL 9.1 MG/DL (8.8-10.2); CARBON DIOXIDE LEVEL 30 MEQ/L (21-32); CHLORIDE LEVEL 105 MEQ/L (98-107); CREATININE FOR GFR 0.82 MG/DL (0.55-1.30); GLOMERULAR FILTRATION RATE > 60.0 (>45); GLUCOSE, FASTING 148 MG/DL (70-100); POTASSIUM SERUM 3.7 MEQ/L (3.5-5.1); SODIUM LEVEL 139 MEQ/L (136-145); TOTAL PROTEIN 6.9 GM/DL (6.4-8.2)
[2021-11-21] MEDS: PROCHLORPERAZINE 10 MG PO PO ONE (11:17)
[2021-11-21] MEDS: dexameTHASONE 10 MG PO PO ONE (11:18)
[2021-11-21] MEDS: TRASTUZUMAB IV ONE (12:35)
[2021-11-21] MEDS: NS IV ONE (12:35)
[2021-11-21] MEDS: SODIUM CHLORIDE 0.9% INJ 10 ML SYR IV PRN (13:12)
[2021-12-14 10:27] VITALS: BP 150/77; O2SAT 95
[2021-12-14 10:29] LABS: BASO % 0.6 % (0.0-1.0); EOS # 0.2 10^3/uL (0.0-0.5); EOS % 3.2 % (0.0-3.0); HEMATOCRIT 35.1 % (36.0-47.0); HEMOGLOBIN 11.7 g/dl (12.0-15.5); LYMPH % 15.8 % (24.0-44.0); MEAN CORPUSCULAR HEMOGLOBIN 31.3 pg (27.0-33.0); MEAN CORPUSCULAR HGB CONC 33.3 g/dl (32.0-36.5); MEAN CORPUSCULAR VOLUME 93.9 fl (80.0-96.0); MONO # 0.5 10^3/uL (0.0-0.8); MONO % 7.3 % (2.0-8.0); NEUTROPHILS # 4.8 10^3/uL (1.5-8.5); NEUTROPHILS % 72.2 % (36.0-66.0); PLATELET COUNT, AUTOMATED 230 10^3/uL (150-450); RED BLOOD COUNT 3.74 10^6/uL (4.00-5.40); WHITE BLOOD COUNT 6.6 10^3/uL (4.0-10.0)
[2021-12-14 11:02] LABS: ALBUMIN 3.3 GM/DL (3.2-5.2); ALKALINE PHOSPHATASE 88 U/L (45-117); ALT/SGPT 27 U/L (12-78); AST/SGOT 18 U/L (7-37); BILIRUBIN,TOTAL 0.3 MG/DL (0.2-1.0); BLOOD UREA NITROGEN 22 MG/DL (7-18); CALCIUM LEVEL 9.4 MG/DL (8.8-10.2); CARBON DIOXIDE LEVEL 32 MEQ/L (21-32); CHLORIDE LEVEL 105 MEQ/L (98-107); CREATININE FOR GFR 0.87 MG/DL (0.55-1.30); GLOMERULAR FILTRATION RATE > 60.0 (>45); GLUCOSE, FASTING 178 MG/DL (70-100); POTASSIUM SERUM 3.5 MEQ/L (3.5-5.1); SODIUM LEVEL 141 MEQ/L (136-145); TOTAL PROTEIN 6.8 GM/DL (6.4-8.2)
[2021-12-14] MEDS: PROCHLORPERAZINE 10 MG PO PO ONE (11:12)
[2021-12-14] MEDS: dexameTHASONE 10 MG PO PO ONE (11:12)
[2021-12-14] MEDS: TRASTUZUMAB IV ONE (12:33)
[2021-12-14] MEDS: NS IV ONE (12:33)
[2021-12-14] MEDS: SODIUM CHLORIDE 0.9% INJ 10 ML SYR IV PRN (13:15)
[2022-01-24 10:27] LABS: BASO % 0.5 % (0.0-1.0); EOS # 0.2 10^3/uL (0.0-0.5); EOS % 3.4 % (0.0-3.0); HEMOGLOBIN 12.3 g/dl (12.0-15.5); LYMPH % 17.1 % (24.0-44.0); MEAN CORPUSCULAR HEMOGLOBIN 31.5 pg (27.0-33.0); MEAN CORPUSCULAR HGB CONC 34.2 g/dl (32.0-36.5); MEAN CORPUSCULAR VOLUME 92.3 fl (80.0-96.0); MONO # 0.5 10^3/uL (0.0-0.8); NEUTROPHILS # 4.2 10^3/uL (1.5-8.5); NEUTROPHILS % 70.5 % (36.0-66.0); PLATELET COUNT, AUTOMATED 262 10^3/uL (150-450)
[2022-01-24 10:34] VITALS: BP 142/80; O2SAT 95
[2022-01-24 10:53] LABS: ALBUMIN 3.6 GM/DL (3.2-5.2); ALKALINE PHOSPHATASE 86 U/L (45-117); ALT/SGPT 19 U/L (12-78); AST/SGOT 11 U/L (7-37); BILIRUBIN,TOTAL 0.4 MG/DL (0.2-1.0); BLOOD UREA NITROGEN 21 MG/DL (7-18); CALCIUM LEVEL 9.6 MG/DL (8.8-10.2); CARBON DIOXIDE LEVEL 31 MEQ/L (21-32); CHLORIDE LEVEL 105 MEQ/L (98-107); CREATININE FOR GFR 0.86 MG/DL (0.55-1.30); GLOMERULAR FILTRATION RATE > 60.0 (>45); GLUCOSE, FASTING 140 MG/DL (70-100); POTASSIUM SERUM 3.9 MEQ/L (3.5-5.1); SODIUM LEVEL 140 MEQ/L (136-145); TOTAL PROTEIN 7.1 GM/DL (6.4-8.2)
[2022-01-24] MEDS: dexameTHASONE 10 MG PO PO ONE (11:40)
[2022-01-24] MEDS: PROCHLORPERAZINE 10 MG PO PO ONE (11:52)
[2022-01-24] MEDS: TRASTUZUMAB IV ONE (12:33)
[2022-01-24] MEDS: NS IV ONE (12:33)
[2022-01-24] MEDS: SODIUM CHLORIDE 0.9% INJ 10 ML SYR IV PRN (13:16)
[2022-02-14 10:29] LABS: BASO % 0.5 % (0.0-1.0); EOS # 0.2 10^3/uL (0.0-0.5); EOS % 3.6 % (0.0-3.0); HEMATOCRIT 34.1 % (36.0-47.0); HEMOGLOBIN 11.4 g/dl (12.0-15.5); LYMPH # 0.9 10^3/uL (1.5-5.0); LYMPH % 15.1 % (24.0-44.0); MEAN CORPUSCULAR HEMOGLOBIN 31.1 pg (27.0-33.0); MEAN CORPUSCULAR HGB CONC 33.4 g/dl (32.0-36.5); MEAN CORPUSCULAR VOLUME 92.9 fl (80.0-96.0); MONO # 0.4 10^3/uL (0.0-0.8); MONO % 6.5 % (2.0-8.0); NEUTROPHILS # 4.5 10^3/uL (1.5-8.5); NEUTROPHILS % 73.8 % (36.0-66.0); PLATELET COUNT, AUTOMATED 235 10^3/uL (150-450); RED BLOOD COUNT 3.67 10^6/uL (4.00-5.40); WHITE BLOOD COUNT 6.1 10^3/uL (4.0-10.0)
[2022-02-14 11:03] LABS: ALBUMIN 3.3 GM/DL (3.2-5.2); ALKALINE PHOSPHATASE 84 U/L (45-117); ALT/SGPT 26 U/L (12-78); AST/SGOT 14 U/L (7-37); BILIRUBIN,TOTAL 0.2 MG/DL (0.2-1.0); BLOOD UREA NITROGEN 17 MG/DL (7-18); CALCIUM LEVEL 9.2 MG/DL (8.8-10.2); CARBON DIOXIDE LEVEL 31 MEQ/L (21-32); CHLORIDE LEVEL 104 MEQ/L (98-107); CREATININE FOR GFR 0.74 MG/DL (0.55-1.30); GLOMERULAR FILTRATION RATE > 60.0 (>45); GLUCOSE, FASTING 161 MG/DL (70-100); POTASSIUM SERUM 3.6 MEQ/L (3.5-5.1); SODIUM LEVEL 140 MEQ/L (136-145); TOTAL PROTEIN 6.9 GM/DL (6.4-8.2)
[2022-02-14 11:08] VITALS: BP 116/64; O2SAT 96
[2022-02-14] MEDS: dexameTHASONE 10 MG PO PO ONE (11:14)
[2022-02-14] MEDS: PROCHLORPERAZINE 10 MG PO PO ONE (11:15)
[2022-02-14] MEDS: NS IV ONE (11:52)
[2022-02-14] MEDS: TRASTUZUMAB IV ONE (11:52)
[2022-02-14] MEDS: SODIUM CHLORIDE 0.9% INJ 10 ML SYR IV PRN (12:28)
[2022-03-07 09:36] LABS: BASO % 0.5 % (0.0-1.0); EOS # 0.3 10^3/uL (0.0-0.5); EOS % 3.8 % (0.0-3.0); HEMATOCRIT 34.4 % (36.0-47.0); HEMOGLOBIN 11.4 g/dl (12.0-15.5); LYMPH # 1.1 10^3/uL (1.5-5.0); LYMPH % 16.4 % (24.0-44.0); MEAN CORPUSCULAR HEMOGLOBIN 30.4 pg (27.0-33.0); MEAN CORPUSCULAR HGB CONC 33.1 g/dl (32.0-36.5); MEAN CORPUSCULAR VOLUME 91.7 fl (80.0-96.0); MONO # 0.5 10^3/uL (0.0-0.8); MONO % 8.1 % (2.0-8.0); NEUTROPHILS # 4.5 10^3/uL (1.5-8.5); NEUTROPHILS % 69.5 % (36.0-66.0); PLATELET COUNT, AUTOMATED 208 10^3/uL (150-450); RED BLOOD COUNT 3.75 10^6/uL (4.00-5.40); WHITE BLOOD COUNT 6.5 10^3/uL (4.0-10.0)
[2022-03-07 09:45] VITALS: BP 136/80; O2SAT 95
[2022-03-07 09:57] LABS: ALBUMIN 3.4 GM/DL (3.2-5.2); ALKALINE PHOSPHATASE 87 U/L (45-117); ALT/SGPT 19 U/L (12-78); AST/SGOT 11 U/L (7-37); BILIRUBIN,TOTAL 0.2 MG/DL (0.2-1.0); BLOOD UREA NITROGEN 26 MG/DL (7-18); CALCIUM LEVEL 9.3 MG/DL (8.8-10.2); CARBON DIOXIDE LEVEL 30 MEQ/L (21-32); CHLORIDE LEVEL 106 MEQ/L (98-107); CREATININE FOR GFR 0.84 MG/DL (0.55-1.30); GLOMERULAR FILTRATION RATE > 60.0 (>45); GLUCOSE, FASTING 154 MG/DL (70-100); POTASSIUM SERUM 3.8 MEQ/L (3.5-5.1); SODIUM LEVEL 141 MEQ/L (136-145); TOTAL PROTEIN 6.8 GM/DL (6.4-8.2)
[2022-03-07] MEDS: dexameTHASONE 10 MG PO PO ONE (10:29)
[2022-03-07] MEDS: PROCHLORPERAZINE 10 MG PO PO ONE (10:30)
[2022-03-07] MEDS: NS IV ONE (11:20)
[2022-03-07] MEDS: TRASTUZUMAB IV ONE (11:20)
[2022-03-07] MEDS: SODIUM CHLORIDE 0.9% INJ 10 ML SYR IV PRN (11:54)
[2022-03-28 10:10] VITALS: BP 109/61; O2SAT 94
[2022-03-28 10:24] LABS: BASO % 0.6 % (0.0-1.0); EOS # 0.2 10^3/uL (0.0-0.5); EOS % 3.3 % (0.0-3.0); HEMOGLOBIN 12.1 g/dl (12.0-15.5); LYMPH # 1.1 10^3/uL (1.5-5.0); LYMPH % 15.8 % (24.0-44.0); MEAN CORPUSCULAR HEMOGLOBIN 31.1 pg (27.0-33.0); MEAN CORPUSCULAR HGB CONC 33.6 g/dl (32.0-36.5); MEAN CORPUSCULAR VOLUME 92.5 fl (80.0-96.0); MONO # 0.5 10^3/uL (0.0-0.8); MONO % 6.7 % (2.0-8.0); NEUTROPHILS # 4.9 10^3/uL (1.5-8.5); NEUTROPHILS % 72.7 % (36.0-66.0); PLATELET COUNT, AUTOMATED 235 10^3/uL (150-450); RED BLOOD COUNT 3.89 10^6/uL (4.00-5.40); WHITE BLOOD COUNT 6.7 10^3/uL (4.0-10.0)
[2022-03-28 11:03] LABS: ALBUMIN 3.6 GM/DL (3.2-5.2); BILIRUBIN,TOTAL 0.3 MG/DL (0.2-1.0); CALCIUM LEVEL 9.7 MG/DL (8.8-10.2); CREATININE FOR GFR 1.04 MG/DL (0.55-1.30); POTASSIUM SERUM 3.8 MEQ/L (3.5-5.1); TOTAL PROTEIN 7.3 GM/DL (6.4-8.2)
[2022-03-28] MEDS: PROCHLORPERAZINE 10 MG PO PO ONE (11:12)
[2022-03-28] MEDS: dexameTHASONE 10 MG PO PO ONE (11:12)
[2022-03-28] MEDS: NS IV ONE (11:48)
[2022-03-28] MEDS: TRASTUZUMAB IV ONE (11:48)
[2022-03-28] MEDS: SODIUM CHLORIDE 0.9% INJ 10 ML SYR IV PRN (12:23)
[2022-04-18 10:22] VITALS: BP 114/85; O2SAT 95
[2022-04-18 10:36] LABS: BASO % 0.6 % (0.0-1.0); EOS # 0.2 10^3/uL (0.0-0.5); EOS % 2.9 % (0.0-3.0); HEMATOCRIT 36.1 % (36.0-47.0); HEMOGLOBIN 12.1 g/dl (12.0-15.5); LYMPH % 15.5 % (24.0-44.0); MEAN CORPUSCULAR HEMOGLOBIN 31.5 pg (27.0-33.0); MEAN CORPUSCULAR HGB CONC 33.5 g/dl (32.0-36.5); MONO # 0.5 10^3/uL (0.0-0.8); MONO % 7.4 % (2.0-8.0); NEUTROPHILS # 4.8 10^3/uL (1.5-8.5); NEUTROPHILS % 72.7 % (36.0-66.0); PLATELET COUNT, AUTOMATED 252 10^3/uL (150-450); RED BLOOD COUNT 3.84 10^6/uL (4.00-5.40); WHITE BLOOD COUNT 6.6 10^3/uL (4.0-10.0)
[2022-04-18 11:20] LABS: ALBUMIN 3.3 GM/DL (3.2-5.2); ALKALINE PHOSPHATASE 89 U/L (45-117); ALT/SGPT 29 U/L (12-78); AST/SGOT 19 U/L (7-37); BILIRUBIN,TOTAL 0.3 MG/DL (0.2-1.0); BLOOD UREA NITROGEN 19 MG/DL (7-18); CALCIUM LEVEL 9.5 MG/DL (8.8-10.2); CARBON DIOXIDE LEVEL 32 MEQ/L (21-32); CHLORIDE LEVEL 103 MEQ/L (98-107); CREATININE FOR GFR 0.84 MG/DL (0.55-1.30); GLOMERULAR FILTRATION RATE > 60.0 (>45); GLUCOSE, FASTING 208 MG/DL (70-100); POTASSIUM SERUM 3.7 MEQ/L (3.5-5.1); SODIUM LEVEL 139 MEQ/L (136-145); TOTAL PROTEIN 7.2 GM/DL (6.4-8.2)
[2022-04-18] MEDS: PROCHLORPERAZINE 10 MG PO PO ONE (11:27)
[2022-04-18] MEDS: dexameTHASONE 10 MG PO PO ONE (11:27)
[2022-04-18] MEDS: TRASTUZUMAB IV ONE (12:08)
[2022-04-18] MEDS: NS IV ONE (12:08)
[2022-04-18] MEDS: SODIUM CHLORIDE 0.9% INJ 10 ML SYR IV PRN (12:41)
[2022-05-10 10:45] VITALS: BP 136/76; O2SAT 94
[2022-05-10 10:50] LABS: BASO % 0.6 % (0.0-1.0); EOS # 0.3 10^3/uL (0.0-0.5); EOS % 3.9 % (0.0-3.0); HEMOGLOBIN 11.3 g/dl (12.0-15.5); LYMPH % 15.5 % (24.0-44.0); MEAN CORPUSCULAR HEMOGLOBIN 31.3 pg (27.0-33.0); MEAN CORPUSCULAR HGB CONC 33.2 g/dl (32.0-36.5); MEAN CORPUSCULAR VOLUME 94.2 fl (80.0-96.0); MONO # 0.5 10^3/uL (0.0-0.8); NEUTROPHILS # 4.6 10^3/uL (1.5-8.5); NEUTROPHILS % 71.9 % (36.0-66.0); PLATELET COUNT, AUTOMATED 234 10^3/uL (150-450); RED BLOOD COUNT 3.61 10^6/uL (4.00-5.40); WHITE BLOOD COUNT 6.5 10^3/uL (4.0-10.0)
[2022-05-10 11:48] LABS: ALBUMIN 3.4 GM/DL (3.2-5.2); ALKALINE PHOSPHATASE 86 U/L (45-117); ALT/SGPT 22 U/L (12-78); AST/SGOT 20 U/L (7-37); BILIRUBIN,TOTAL 0.2 MG/DL (0.2-1.0); BLOOD UREA NITROGEN 22 MG/DL (7-18); CALCIUM LEVEL 9.8 MG/DL (8.8-10.2); CARBON DIOXIDE LEVEL 31 MEQ/L (21-32); CHLORIDE LEVEL 104 MEQ/L (98-107); CREATININE FOR GFR 0.77 MG/DL (0.55-1.30); GLOMERULAR FILTRATION RATE > 60.0 (>45); GLUCOSE, FASTING 166 MG/DL (70-100); POTASSIUM SERUM 3.6 MEQ/L (3.5-5.1); SODIUM LEVEL 138 MEQ/L (136-145); TOTAL PROTEIN 6.9 GM/DL (6.4-8.2)
[2022-05-10] MEDS: dexameTHASONE 10 MG PO PO ONE (12:13)
[2022-05-10] MEDS: PROCHLORPERAZINE 10 MG PO PO ONE (12:13)
[2022-05-10] MEDS: NS IV ONE (12:55)
[2022-05-10] MEDS: TRASTUZUMAB IV ONE (12:55)
[2022-05-10] MEDS: SODIUM CHLORIDE 0.9% INJ 10 ML SYR IV PRN (13:45)
[2022-08-16] MEDS: SODIUM CHLORIDE 0.9% INJ 10 ML SYR IV PRN (10:40)
[2022-09-19 14:00] VITALS: BP 130/80; O2SAT 99
[2023-01-17] MEDS: SODIUM CHLORIDE 0.9% INJ 10 ML SYR IV PRN (09:49)
[2023-01-17 10:00] LABS: BASO % 0.1 % (0.0-1.0); EOS # 0.1 10^3/uL (0.0-0.5); EOS % 1.2 % (0.0-3.0); HEMATOCRIT 31.5 % (36.0-47.0); HEMOGLOBIN 9.8 g/dl (12.0-15.5); LYMPH # 1.1 10^3/uL (1.5-5.0); MEAN CORPUSCULAR HEMOGLOBIN 27.8 pg (27.0-33.0); MEAN CORPUSCULAR HGB CONC 31.1 g/dl (32.0-36.5); MEAN CORPUSCULAR VOLUME 89.2 fl (80.0-96.0); MONO # 0.4 10^3/uL (0.0-0.8); MONO % 6.5 % (2.0-8.0); NEUTROPHILS % 74.6 % (36.0-66.0); PLATELET COUNT, AUTOMATED 356 10^3/uL (150-450); RED BLOOD COUNT 3.53 10^6/uL (4.00-5.40); WHITE BLOOD COUNT 6.7 10^3/uL (4.0-10.0)
[2023-01-17 10:03] VITALS: BP 94/70; O2SAT 95
[2023-01-17 10:29] LABS: ALBUMIN 3.2 G/DL (3.2-5.2); ALKALINE PHOSPHATASE 99 U/L (46-116); ALT/SGPT 15 U/L (7.0-40); AST/SGOT 25 U/L (<34); BILIRUBIN,TOTAL 0.2 MG/DL (0.3-1.2); BLOOD UREA NITROGEN 21 MG/DL (9-23); CALCIUM LEVEL 9.4 MG/DL (8.3-10.6); CARBON DIOXIDE LEVEL 27 MMOL/L (20-31); CHLORIDE LEVEL 103 MMOL/L (98-107); CREATININE FOR GFR 0.95 MG/DL (0.55-1.30); GLOMERULAR FILTRATION RATE > 60.0 (>45); GLUCOSE, FASTING 142 MG/DL (74-106); POTASSIUM SERUM 4.1 MMOL/L (3.5-5.1); SODIUM LEVEL 138 MMOL/L (136-145); TOTAL PROTEIN 7.3 G/DL (5.7-8.2)
[2023-01-17 10:48] LABS: CA15-3 ANTIGEN 20.5 U/ML (<32.4)
[2023-01-19 15:08] LABS: CA 27.29 28.8 U/mL (0.0-38.6); SOLUBLE TRANSFERRIN RECEPTOR 30.4 nmol/L (12.2-27.3)
[2023-07-18] MEDS: SODIUM CHLORIDE 0.9% INJ 10 ML SYR IV PRN (10:21)
[2023-07-18 10:31] LABS: BASO # 0.1 10^3/uL (0.0-0.2); BASO % 0.6 % (0.0-1.0); EOS # 0.3 10^3/uL (0.0-0.5); HEMATOCRIT 34.9 % (36.0-47.0); HEMOGLOBIN 11.4 g/dl (12.0-15.5); LYMPH # 1.2 10^3/uL (1.5-5.0); LYMPH % 14.9 % (24.0-44.0); MEAN CORPUSCULAR HEMOGLOBIN 30.1 pg (27.0-33.0); MEAN CORPUSCULAR HGB CONC 32.7 g/dl (32.0-36.5); MEAN CORPUSCULAR VOLUME 92.1 fl (80.0-96.0); MONO # 0.5 10^3/uL (0.0-0.8); MONO % 6.7 % (2.0-8.0); NEUTROPHILS # 5.7 10^3/uL (1.5-8.5); NEUTROPHILS % 73.3 % (36.0-66.0); PLATELET COUNT, AUTOMATED 343 10^3/uL (150-450); RED BLOOD COUNT 3.79 10^6/uL (4.00-5.40); WHITE BLOOD COUNT 7.8 10^3/uL (4.0-10.0)
[2023-07-18 10:50] VITALS: BP 126/73; O2SAT 95
[2023-07-18 10:57] LABS: ALBUMIN 3.4 G/DL (3.2-5.2); ALKALINE PHOSPHATASE 104 U/L (46-116); ALT/SGPT < 9 U/L (7.0-40); AST/SGOT < 8 U/L (<34); BILIRUBIN,TOTAL 0.3 MG/DL (0.3-1.2); BLOOD UREA NITROGEN 23 MG/DL (9-23); CALCIUM LEVEL 9.8 MG/DL (8.3-10.6); CARBON DIOXIDE LEVEL 30 MMOL/L (20-31); CHLORIDE LEVEL 103 MMOL/L (98-107); CREATININE FOR GFR 0.76 MG/DL (0.55-1.30); GLOMERULAR FILTRATION RATE > 60.0 (>45); GLUCOSE, FASTING 133 MG/DL (74-106); POTASSIUM SERUM 4.1 MMOL/L (3.5-5.1); SODIUM LEVEL 140 MMOL/L (136-145); TOTAL PROTEIN 7.2 G/DL (5.7-8.2)
[2023-07-18 11:29] LABS: CA15-3 ANTIGEN 23.1 U/ML (<32.4)
[2023-12-04] MEDS: SODIUM CHLORIDE 0.9% INJ 10 ML SYR IV PRN (11:25)
[2024-01-14] MEDS: SODIUM CHLORIDE 0.9% INJ 10 ML SYR IV PRN (09:37)
[2024-01-14 09:48] LABS: BASO % 0.5 % (0.0-1.0); EOS # 0.3 10^3/uL (0.0-0.5); EOS % 3.3 % (0.0-3.0); HEMATOCRIT 35.1 % (36.0-47.0); HEMOGLOBIN 11.6 g/dl (12.0-15.5); LYMPH # 1.3 10^3/uL (1.5-5.0); LYMPH % 16.3 % (24.0-44.0); MEAN CORPUSCULAR HEMOGLOBIN 30.4 pg (27.0-33.0); MEAN CORPUSCULAR VOLUME 92.1 fl (80.0-96.0); MONO # 0.6 10^3/uL (0.0-0.8); MONO % 6.8 % (2.0-8.0); NEUTROPHILS # 5.9 10^3/uL (1.5-8.5); NEUTROPHILS % 72.4 % (36.0-66.0); PLATELET COUNT, AUTOMATED 291 10^3/uL (150-450); RED BLOOD COUNT 3.81 10^6/uL (4.00-5.40); WHITE BLOOD COUNT 8.1 10^3/uL (4.0-10.0)
[2024-01-14 10:19] VITALS: BP 116/75; O2SAT 95
[2024-01-14 10:23] LABS: ALBUMIN 3.3 G/DL (3.2-5.2); ALKALINE PHOSPHATASE 105 U/L (46-116); ALT/SGPT 11 U/L (7.0-40); AST/SGOT 9 U/L (<34); BILIRUBIN,TOTAL 0.3 MG/DL (0.3-1.2); BLOOD UREA NITROGEN 22 MG/DL (9-23); CARBON DIOXIDE LEVEL 29 MMOL/L (20-31); CHLORIDE LEVEL 103 MMOL/L (98-107); CREATININE FOR GFR 0.82 MG/DL (0.55-1.30); GLOMERULAR FILTRATION RATE > 60.0 (>45); GLUCOSE, FASTING 198 MG/DL (74-106); POTASSIUM SERUM 3.9 MMOL/L (3.5-5.1); SODIUM LEVEL 141 MMOL/L (136-145)
[2024-01-14 10:54] LABS: CA15-3 ANTIGEN 23.5 U/ML (<32.4)
[~2024-01-25] VITALS: Ht 167.6 cm; Wt 131.9 kg
[~2024-01-25 12:52] MED LIST changes: +ALBUTEROL SULFATE (2.5MG/0.5ML) NEB INH PRN; +EPINEPHrine (1MG/ML) IV IM PRN; +FAMOTIDINE 20MG IVP IV PRN; +FAMOTIDINE IV BAG 20 MG IV PRN; -LISI10TA22; +LISI10TA22 PO; +NS (Normal Saline) 0.9% 1,000 ML IV PRN; +NS IV ONE; +OMEG-28 PO; +OMEP-173; +PACLITAXEL IV ONE; +PILL CUTTER 1 EACH XX PRN; +PROCHLORPERAZINE 10 MG PO PO ONE; +SODIUM CHLORIDE 0.9% INJ 10 ML SYR IV PRN; +TRASTUZUMAB IV ONE; +dexameTHASONE 10 MG PO PO ONE; +diphenhydrAMINE (50MG/ML) IV IV PRN; +methylPREDNISolone (125 MG/2 ML) IV IV PRN
[2024-01-25] MEDS: SODIUM CHLORIDE 0.9% INJ 10 ML SYR IV PRN (13:23)
[2024-01-25 13:58] LABS: ALBUMIN 3.5 G/DL (3.2-5.2); ALKALINE PHOSPHATASE 104 U/L (46-116); ALT/SGPT 16 U/L (7.0-40); AST/SGOT 9 U/L (<34); BILIRUBIN,TOTAL 0.2 MG/DL (0.3-1.2); BLOOD UREA NITROGEN 27 MG/DL (9-23); CALCIUM LEVEL 9.5 MG/DL (8.3-10.6); CARBON DIOXIDE LEVEL 29 MMOL/L (20-31); CHLORIDE LEVEL 103 MMOL/L (98-107); CREATININE FOR GFR 0.76 MG/DL (0.55-1.30); GLOMERULAR FILTRATION RATE > 60.0 (>45); GLUCOSE, FASTING 162 MG/DL (74-106); POTASSIUM SERUM 4.1 MMOL/L (3.5-5.1); SODIUM LEVEL 138 MMOL/L (136-145); TOTAL PROTEIN 7.1 G/DL (5.7-8.2)
[2024-01-25] MEDS: DENOSUMAB 60MG/1ML SYRINGE (PROLIA) SC SCH (14:27)
[2024-05-16] MEDS ORDERED: POTA1TAB23 PO (17:27)
[2024-05-16] MEDS ORDERED: ALLO300T2 PO (17:29)
[2024-05-28] MEDS ORDERED: DIGO0.253 PO (11:44)
[2024-05-28] MEDS ORDERED: MUCI600T31 PO (11:44)
[2024-05-28] MEDS ORDERED: VENTAER INH (11:44)
[2024-05-28] MEDS ORDERED: CEFD300CAP PO (11:44)
[2024-05-28] MEDS ORDERED: DOXY100T PO (11:44)
[2024-05-28] MEDS ORDERED: RISATAB3 PO (11:44)
[2024-05-28] MEDS ORDERED: ELIQ5TAB PO (11:44)
[2024-05-28] MEDS ORDERED: PRED10TA2 PO (11:44)
== END 2024-07-10 | disposition expired ==
LOC: M ONCM 12:52
PROVIDERS: ATTEND Specialist
DX: C50.911 Malignant neoplasm of unspecified site of right female breast (principal); D50.9 Iron deficiency anemia, unspecified; M85.88 Other specified disorders of bone density and structure, other site; Z79.899 Other long term (current) drug therapy; I10 Essential (primary) hypertension; E11.40 Type 2 diabetes mellitus with diabetic neuropathy, unspecified; F41.9 Anxiety disorder, unspecified; F32.9 Major depressive disorder, single episode, unspecified; E66.01 Morbid (severe) obesity due to excess calories
CPT/HCPCS: 36415; 36591; 80053; 82378; 82607; 82746; 83520; 83550; 85025; 85610; 85730; 86300; 96365; 96366; 96367; 96368; 96372; 96375; 96413; 96415; 96417; 96523; G0463; J0897; J1100; J1200; J1439; J1453; J1642; J2469; J9267; J9355

== ENCOUNTER → 2024-02-01 | Outpatient (CLI) | payer MEDICARE, OTHER ==
[~2024-02-01] MED LIST changes: -ALBUTEROL SULFATE (2.5MG/0.5ML) NEB INH PRN; -EPINEPHrine (1MG/ML) IV IM PRN; -FAMOTIDINE 20MG IVP IV PRN; -FAMOTIDINE IV BAG 20 MG IV PRN; +LISI10TA22; -LISI10TA22 PO; -NS (Normal Saline) 0.9% 1,000 ML IV PRN; -NS IV ONE; -OMEG-28 PO; +OMEG1CAP85 PO; -PACLITAXEL IV ONE; -PILL CUTTER 1 EACH XX PRN; -PROCHLORPERAZINE 10 MG PO PO ONE; -SODIUM CHLORIDE 0.9% INJ 10 ML SYR IV PRN; -TRASTUZUMAB IV ONE; -dexameTHASONE 10 MG PO PO ONE; -diphenhydrAMINE (50MG/ML) IV IV PRN; -methylPREDNISolone (125 MG/2 ML) IV IV PRN
[2024-02-01 13:18] LABS: BLOOD UREA NITROGEN 19 MG/DL (9-23); CALCIUM LEVEL 8.4 MG/DL (8.3-10.6); CARBON DIOXIDE LEVEL 27 MMOL/L (20-31); CHLORIDE LEVEL 108 MMOL/L (98-107); GLOMERULAR FILTRATION RATE > 60.0 (>45); GLUCOSE, FASTING 166 MG/DL (74-106); POTASSIUM SERUM 4.5 MMOL/L (3.5-5.1); SODIUM LEVEL 143 MMOL/L (136-145)
[2024-02-01 13:27] LABS: HEMOGLOBIN A1c 6.7 % (4.0-6.0)
== END ==
LOC: M PLALAB 10:45
PROVIDERS: ATTEND Physician Assistant
DX: E11.22 Type 2 diabetes mellitus with diabetic chronic kidney disease (principal); I11.0 Hypertensive heart disease with heart failure

== ENCOUNTER → 2024-05-02 | Outpatient (CLI) | payer MEDICARE, OTHER ==
[~2024-05-02] MED LIST changes: +ALLO300T2 PO; -LISI10TA22; +LISI10TA22 PO; +OMEG-28 PO; -OMEG1CAP85 PO; +POTA1TAB23 PO
== END ==
LOC: M ONCR 12:57
PROVIDERS: ATTEND General Practice
DX: Z08 Encounter for follow-up examination after completed treatment for malignant neoplasm (principal); Z85.3 Personal history of malignant neoplasm of breast; R23.8 Other skin changes; E11.22 Type 2 diabetes mellitus with diabetic chronic kidney disease; I11.0 Hypertensive heart disease with heart failure; D63.8 Anemia in other chronic diseases classified elsewhere; Z79.811 Long term (current) use of aromatase inhibitors; Z79.620 Long term (current) use of immunosuppressive biologic; Z79.82 Long term (current) use of aspirin; Z79.84 Long term (current) use of oral hypoglycemic drugs; Z79.899 Other long term (current) drug therapy; Z88.0 Allergy status to penicillin; Z88.1 Allergy status to other antibiotic agents; Z88.8 Allergy status to other drugs, medicaments and biological substances; Z92.21 Personal history of antineoplastic chemotherapy; Z92.3 Personal history of irradiation
CPT/HCPCS: 36415; 80053; 83036; 85025; G0463

== ENCOUNTER → 2024-05-02 | Outpatient (CLI) | payer MEDICARE, OTHER ==
[2024-05-02 10:48] LABS: BASO % 0.4 % (0.0-1.0); EOS # 0.3 10^3/uL (0.0-0.5); EOS % 3.2 % (0.0-3.0); HEMATOCRIT 36.4 % (36.0-47.0); HEMOGLOBIN 11.8 g/dl (12.0-15.5); LYMPH # 1.9 10^3/uL (1.5-5.0); LYMPH % 20.3 % (24.0-44.0); MEAN CORPUSCULAR HEMOGLOBIN 29.6 pg (27.0-33.0); MEAN CORPUSCULAR HGB CONC 32.4 g/dl (32.0-36.5); MEAN CORPUSCULAR VOLUME 91.5 fl (80.0-96.0); MONO # 0.5 10^3/uL (0.0-0.8); MONO % 5.7 % (2.0-8.0); NEUTROPHILS # 6.4 10^3/uL (1.5-8.5); NEUTROPHILS % 68.6 % (36.0-66.0); PLATELET COUNT, AUTOMATED 340 10^3/uL (150-450); RED BLOOD COUNT 3.98 10^6/uL (4.00-5.40); WHITE BLOOD COUNT 9.3 10^3/uL (4.0-10.0)
[2024-05-02 11:09] LABS: ALBUMIN 3.3 G/DL (3.2-5.2); ALKALINE PHOSPHATASE 83 U/L (46-116); ALT/SGPT 11 U/L (7.0-40); AST/SGOT < 8 U/L (<34); BILIRUBIN,TOTAL 0.3 MG/DL (0.3-1.2); BLOOD UREA NITROGEN 31 MG/DL (9-23); CALCIUM LEVEL 9.5 MG/DL (8.3-10.6); CARBON DIOXIDE LEVEL 27 MMOL/L (20-31); CHLORIDE LEVEL 107 MMOL/L (98-107); CREATININE FOR GFR 0.75 MG/DL (0.55-1.30); GLOMERULAR FILTRATION RATE > 60.0 (>45); GLUCOSE, FASTING 160 MG/DL (74-106); POTASSIUM SERUM 4.2 MMOL/L (3.5-5.1); SODIUM LEVEL 141 MMOL/L (136-145); TOTAL PROTEIN 6.8 G/DL (5.7-8.2)
[2024-05-02 11:13] LABS: HEMOGLOBIN A1c 6.6 % (4.0-6.0)
== END ==
LOC: M PLALAB 08:48
PROVIDERS: ATTEND Physician Assistant
DX: E11.22 Type 2 diabetes mellitus with diabetic chronic kidney disease (principal); I11.0 Hypertensive heart disease with heart failure; D63.8 Anemia in other chronic diseases classified elsewhere

== ENCOUNTER 2024-05-16 11:59 | Inpatient (IN) | payer MEDICARE, OTHER ==
[~2024-05-16] VITALS: Ht 165.1 cm; Wt 140.3 kg
[~2024-05-16 11:59] MED LIST changes: -ALLO300T2 PO; -POTA1TAB23 PO
[2024-05-16 12:47] LABS: BASO # 0.1 10^3/uL (0.0-0.2); BASO % 0.2 % (0.0-1.0); EOS % 0.1 % (0.0-3.0); HEMATOCRIT 31.6 % (36.0-47.0); HEMOGLOBIN 10.6 g/dl (12.0-15.5); LYMPH % 4.2 % (24.0-44.0); MEAN CORPUSCULAR HGB CONC 33.5 g/dl (32.0-36.5); MEAN CORPUSCULAR VOLUME 89.5 fl (80.0-96.0); MONO # 1.3 10^3/uL (0.0-0.8); MONO % 5.3 % (2.0-8.0); NEUTROPHILS # 22.1 10^3/uL (1.5-8.5); NEUTROPHILS % 88.7 % (36.0-66.0); PLATELET COUNT, AUTOMATED 259 10^3/uL (150-450); RED BLOOD COUNT 3.53 10^6/uL (4.00-5.40); WHITE BLOOD COUNT 24.9 10^3/uL (4.0-10.0)
[2024-05-16 13:12] LABS: ALBUMIN 2.6 G/DL (3.2-5.2); ALKALINE PHOSPHATASE 144 U/L (46-116); ALT/SGPT 32 U/L (7.0-40); AST/SGOT 32 U/L (<34); BILIRUBIN,DIRECT 0.4 MG/DL (<0.4); BILIRUBIN,TOTAL 0.8 MG/DL (0.3-1.2); BLOOD UREA NITROGEN 50 MG/DL (9-23); CALCIUM LEVEL 8.4 MG/DL (8.3-10.6); CARBON DIOXIDE LEVEL 24 MMOL/L (20-31); CHLORIDE LEVEL 101 MMOL/L (98-107); CREATININE FOR GFR 1.91 MG/DL (0.55-1.30); GLUCOSE, FASTING 262 MG/DL (74-106); POTASSIUM SERUM 3.8 MMOL/L (3.5-5.1); SODIUM LEVEL 135 MMOL/L (136-145); TOTAL PROTEIN 6.7 G/DL (5.7-8.2)
[2024-05-16] MEDS: LIDOCAINE 2% 5ML JELLY UROJET TOP ONE (13:15)
[2024-05-16] MEDS: ALBUTEROL SULFATE 2.5MG/0.5ML INH NEB SOLN INH ONE (13:26)
[2024-05-16] MEDS: IPRATROPIUM 0.5MG/ALBUTEROL 2.5MG INH SOL UD 3ML (DUONEB) NEB ONE (13:26)
[2024-05-16 13:32] LABS: MAGNESIUM LEVEL 1.6 MG/DL (1.8-2.4)
[2024-05-16] MEDS: methylPREDNISolone 125MG 2ML VIAL IV ONE (13:33)
[2024-05-16] MEDS: NS IV ONE (13:33)
[2024-05-16] MEDS: LevoFLOXacin IV 750 MG in IV 1 EA IV ONE (13:33)
[2024-05-16 14:09] LABS: CK-MB VALUE MASS < 1.0 NG/ML (<3.6)
[2024-05-16 14:10] LABS: CPK CREATINE PHOSPHOKINASE 68 U/L (34-145); MB/CK RELATIVE INDEX 1.47 (< OR =4)
[2024-05-16 14:32] LABS: CK-MB VALUE MASS < 1.0 NG/ML (<3.6); CPK CREATINE PHOSPHOKINASE 78 U/L (34-145); MB/CK RELATIVE INDEX 1.28 (< OR =4)
[2024-05-16 16:50] LABS: MB/CK RELATIVE INDEX 1.26 (< OR =4)
[2024-05-16] MEDS: NS 1,000 ML IV SCH (17:21)
[2024-05-16] MEDS ORDERED: GLUCOSE 4 GM CHEW PO PRN (17:25)
[2024-05-16] MEDS ORDERED: DEXTROSE 50% 50ML SYRINGE IV PRN (17:25)
[2024-05-16] MEDS ORDERED: GLUCAGON INJ 1MG VIAL SC PRN (17:25)
[2024-05-16] MEDS ORDERED: POTA1TAB23 PO (17:27)
[2024-05-16] MEDS ORDERED: ALLO300T2 PO (17:29)
[2024-05-16] MEDS ORDERED: HOME MED LIST COMPLETE! XX SCH (17:30)
[2024-05-16] MEDS: INSULIN LISPRO (NovoLOG) PER UNIT SC SCH (18:31)
[2024-05-16] MEDS: ASPIRIN 81MG ENTERIC TABLET PO SCH (21:00)
[2024-05-16] MEDS: SIMVASTATIN 40 MG TAB PO SCH (21:46)
[2024-05-17 06:06] LABS: HEMATOCRIT 31.9 % (36.0-47.0); HEMOGLOBIN 9.6 g/dl (12.0-15.5); MEAN CORPUSCULAR HEMOGLOBIN 29.8 pg (27.0-33.0); MEAN CORPUSCULAR HGB CONC 30.1 g/dl (32.0-36.5); MEAN CORPUSCULAR VOLUME 99.1 fl (80.0-96.0); PLATELET COUNT, AUTOMATED 200 10^3/uL (150-450); RED BLOOD COUNT 3.22 10^6/uL (4.00-5.40)
[2024-05-17 06:58] LABS: ALBUMIN 2.3 G/DL (3.2-5.2); ALKALINE PHOSPHATASE 115 U/L (46-116); ALT/SGPT 24 U/L (7.0-40); AST/SGOT 14 U/L (<34); BILIRUBIN,TOTAL 0.3 MG/DL (0.3-1.2); BLOOD UREA NITROGEN 54 MG/DL (9-23); CALCIUM LEVEL 7.6 MG/DL (8.3-10.6); CARBON DIOXIDE LEVEL 22 MMOL/L (20-31); CHLORIDE LEVEL 102 MMOL/L (98-107); CREATININE FOR GFR 1.27 MG/DL (0.55-1.30); GLOMERULAR FILTRATION RATE 44.8 (>45); GLUCOSE, FASTING 325 MG/DL (74-106); POTASSIUM SERUM 3.7 MMOL/L (3.5-5.1); PROCALCITONIN >50.00 ng/ml; SODIUM LEVEL 135 MMOL/L (136-145)
[2024-05-17] MEDS: ACETAMINOPHEN 500 MG TAB PO SCH (10:30)
[2024-05-17] MEDS: ESCITALOPRAM OXALATE 10 MG TAB (LEXAPRO) PO SCH (10:30)
[2024-05-17] MEDS: buPROPion **XL** TABLET 150MG (WELLBUTRIN XL) PO SCH (10:31)
[2024-05-17] MEDS: CYANOCOBALAMIN 500 MCG TAB PO SCH (10:32)
[2024-05-17] MEDS: ENOXAPARIN 40MG/0.4ML SYRINGE (J1650 PER 10MG) SC SCH (10:33)
[2024-05-17] MEDS: LevoFLOXacin IV 250 MG in IV 1 EA IV SCH (10:38)
[2024-05-17 16:52] VITALS: BP 143/70; TEMP 97.4; O2SAT 94
[2024-05-17 20:22] VITALS: BP 140/66; TEMP 97.5; O2SAT 93
[2024-05-18] VITALS (20 sets, daily range): BP systolic 102–169; BP diastolic 57–88; TEMP 97–102; O2SAT 90–100
[2024-05-18] MEDS: ACETAMINOPHEN TAB 650MG DOSE (2X325MG) PO PRN (01:08)
[2024-05-18 07:47] LABS: BASO # 0.1 10^3/uL (0.0-0.2); BASO % 0.2 % (0.0-1.0); HEMATOCRIT 31.3 % (36.0-47.0); LYMPH # 0.5 10^3/uL (1.5-5.0); MEAN CORPUSCULAR HEMOGLOBIN 29.5 pg (27.0-33.0); MEAN CORPUSCULAR HGB CONC 31.9 g/dl (32.0-36.5); MEAN CORPUSCULAR VOLUME 92.3 fl (80.0-96.0); MONO % 4.2 % (2.0-8.0); NEUTROPHILS # 21.3 10^3/uL (1.5-8.5); PLATELET COUNT, AUTOMATED 233 10^3/uL (150-450); RED BLOOD COUNT 3.39 10^6/uL (4.00-5.40); WHITE BLOOD COUNT 23.5 10^3/uL (4.0-10.0)
[2024-05-18 08:20] LABS: ALBUMIN 2.3 G/DL (3.2-5.2); ALKALINE PHOSPHATASE 118 U/L (46-116); ALT/SGPT 23 U/L (7.0-40); AST/SGOT 13 U/L (<34); BILIRUBIN,TOTAL 0.4 MG/DL (0.3-1.2); BLOOD UREA NITROGEN 43 MG/DL (9-23); CALCIUM LEVEL 7.6 MG/DL (8.3-10.6); CARBON DIOXIDE LEVEL 24 MMOL/L (20-31); CHLORIDE LEVEL 104 MMOL/L (98-107); CREATININE FOR GFR 0.89 MG/DL (0.55-1.30); GLOMERULAR FILTRATION RATE > 60.0 (>45); GLUCOSE, FASTING 301 MG/DL (74-106); POTASSIUM SERUM 3.2 MMOL/L (3.5-5.1); SODIUM LEVEL 138 MMOL/L (136-145)
[2024-05-18 08:27] LABS: TOTAL 25(OH) VITAMIN D 58.5 NG/ML (20.0-100.0)
[2024-05-18] MEDS: dilTIAZem 25MG/5ML VIAL IV STA ×2 (08:49→09:29)
[2024-05-18] MEDS: NS 500 ML IV ONE (09:54)
[2024-05-18] MEDS ORDERED: dilTIAZem 25MG/5ML VIAL IV SCH (10:10)
[2024-05-18] MEDS ORDERED: diltiaZEM 125 MG in NS 100 ML IV SCH (10:25)
[2024-05-18] MEDS: diltiaZEM 125 MG in NS 100 ML IV SCH (11:19)
[2024-05-18 12:26] LABS: CPK CREATINE PHOSPHOKINASE 33 U/L (34-145)
[2024-05-18 12:30] LABS: CK-MB VALUE MASS < 1.0 NG/ML (<3.6); MB/CK RELATIVE INDEX 3.03 (< OR =4)
[2024-05-18 21:03] LABS: CK-MB VALUE MASS < 1.0 NG/ML (<3.6)
[2024-05-18 21:05] LABS: CPK CREATINE PHOSPHOKINASE 30 U/L (34-145); MB/CK RELATIVE INDEX 3.33 (< OR =4)
[2024-05-19 02:38] VITALS: BP 104/82; TEMP 97.3; O2SAT 94
[2024-05-19 05:22] VITALS: BP 141/63; TEMP 97.8; O2SAT 97
[2024-05-19] MEDS: LevoFLOXacin 750 MG TABLET PO SCH (06:40)
[2024-05-19 07:22] VITALS: BP 144/76; TEMP 97.9; O2SAT 96
[2024-05-19 08:03] LABS: HEMATOCRIT 32.3 % (36.0-47.0); HEMOGLOBIN 10.4 g/dl (12.0-15.5); MEAN CORPUSCULAR HEMOGLOBIN 30.1 pg (27.0-33.0); MEAN CORPUSCULAR HGB CONC 32.2 g/dl (32.0-36.5); MEAN CORPUSCULAR VOLUME 93.4 fl (80.0-96.0); PLATELET COUNT, AUTOMATED 208 10^3/uL (150-450); RED BLOOD COUNT 3.46 10^6/uL (4.00-5.40); WHITE BLOOD COUNT 17.3 10^3/uL (4.0-10.0)
[2024-05-19 08:32] LABS: CK-MB VALUE MASS < 1.0 NG/ML (<3.6)
[2024-05-19 08:33] LABS: CPK CREATINE PHOSPHOKINASE 28 U/L (34-145); MB/CK RELATIVE INDEX 3.57 (< OR =4)
[2024-05-19] MEDS: UNRESOLVED PATIENT OWN MED ORDER XX SCH (09:00)
[2024-05-19 11:15] LABS: BLOOD UREA NITROGEN 18 MG/DL (9-23); CALCIUM LEVEL 7.1 MG/DL (8.3-10.6); CARBON DIOXIDE LEVEL 22 MMOL/L (20-31); CHLORIDE LEVEL 106 MMOL/L (98-107); CREATININE FOR GFR 0.65 MG/DL (0.55-1.30); FREE T4 1.37 NG/DL (0.89-1.76); GLOMERULAR FILTRATION RATE > 60.0 (>45); GLUCOSE, FASTING 233 MG/DL (74-106); MAGNESIUM LEVEL 1.6 MG/DL (1.8-2.4); POTASSIUM SERUM 3.2 MMOL/L (3.5-5.1); SODIUM LEVEL 140 MMOL/L (136-145); THYROID STIMULATING HORMONE 1.906 uIU/ML (0.55-4.78)
[2024-05-19] MEDS: allopurinoL 300 MG TAB PO SCH (11:23)
[2024-05-19] MEDS: dilTIAZem 30 MG TAB PO SCH (11:23)
[2024-05-19] MEDS: LEVOTHYROXINE 88MCG TABLET (0.088 MG) PO SCH (11:23)
[2024-05-19] MEDS: ESCITALOPRAM OXALATE 10 MG TAB (LEXAPRO) PO SCH (11:24)
[2024-05-19 11:45] VITALS: BP 136/71; TEMP 98.5; O2SAT 93
[2024-05-19] MEDS: POTASSIUM CHLORIDE 10MEQ SR TABLET PO ONE (15:08)
[2024-05-19] MEDS: MAG SULF 1GM/100ML (MAG RUN) 1 GM in IV 1 EA IV ONE (15:08)
[2024-05-19 16:49] VITALS: BP 116/66; TEMP 96.6; O2SAT 91
[2024-05-19] MEDS: FUROSEMIDE 20MG/2ML VIAL IV ONE (17:07)
[2024-05-19 20:00] VITALS: BP 148/70; TEMP 98.6; O2SAT 96
[2024-05-19] MEDS: POTASSIUM CHLORIDE 10MEQ SR TABLET PO SCH (20:42)
[2024-05-20] VITALS (10 sets, daily range): BP systolic 125–159; BP diastolic 63–80; TEMP 96.7–102; O2SAT 92–97
[2024-05-20] MEDS ORDERED: UNRESOLVED NON-FORMULARY MED ORDER XX SCH (00:01)
[2024-05-20 06:41] LABS: HEMATOCRIT 30.2 % (36.0-47.0); HEMOGLOBIN 10.2 g/dl (12.0-15.5); MEAN CORPUSCULAR HGB CONC 33.8 g/dl (32.0-36.5); MEAN CORPUSCULAR VOLUME 88.8 fl (80.0-96.0)
[2024-05-20 06:47] LABS: PLATELET COUNT, AUTOMATED 317 10^3/uL (150-450)
[2024-05-20 07:08] LABS: BLOOD UREA NITROGEN 12 MG/DL (9-23); CALCIUM LEVEL 7.8 MG/DL (8.3-10.6); CARBON DIOXIDE LEVEL 23 MMOL/L (20-31); CHLORIDE LEVEL 107 MMOL/L (98-107); CREATININE FOR GFR 0.59 MG/DL (0.55-1.30); GLOMERULAR FILTRATION RATE > 60.0 (>45); GLUCOSE, FASTING 251 MG/DL (74-106); MAGNESIUM LEVEL 1.6 MG/DL (1.8-2.4); POTASSIUM SERUM 3.6 MMOL/L (3.5-5.1); SODIUM LEVEL 138 MMOL/L (136-145)
[2024-05-20 07:15] LABS: PROCALCITONIN 7.31 ng/ml
[2024-05-20] MEDS ORDERED: VANCOMYCIN HCL 750 MG, VIAL MATE ADAPTER 1 EACH in D5W 250 ML IV SCH (07:55)
[2024-05-20 08:08] LABS: ANISOCYTOSIS 1+; ATYPICAL LYMPH 1 % (0-5); EOSINOPHILS 1 % (0-3); LYMPHOCYTES 2 % (16-44); MONOCYTES 4 % (0-5); NEUTROPHILS 92 % (28-66); PLATELET ESTIMATE NORMAL (NORMAL); POIKILOCYTOSIS 1+; POLYCHROMASIA 1+
[2024-05-20] MEDS: DIGOXIN INJ 0.5 MG/2 ML AMP IV ONE (09:10)
[2024-05-20] MEDS: METOPROLOL TART 50 MG TAB PO SCH (09:11)
[2024-05-20] MEDS: MAGNESIUM OXIDE 400MG TAB (MAG-OX) PO SCH (09:12)
[2024-05-20] MEDS: LEVEMIR (INSULIN DETEMIR) 1 UNITS/0.01ML SC SCH (09:13)
[2024-05-20] MEDS: APIXABAN 5 MG TAB (ELIQUIS) PO SCH (09:13)
[2024-05-20] MEDS: MAG SULF 1GM/100ML (MAG RUN) 1 GM in IV 1 EA IV SCH (09:14)
[2024-05-20] MEDS: CEFEPIME HCL 2 GM in D5W MINI-BAG PLUS 50 ML IV SCH (09:14)
[2024-05-20] MEDS ORDERED: VANCOMYCIN HCL 1,000 MG, VIAL MATE ADAPTER 1 EACH in D5W 250 ML IV SCH (10:00)
[2024-05-20] MEDS ORDERED: VANCOMYCIN HCL 500 MG in D5W MINI-BAG PLUS 100 ML IV ONE (12:00)
[2024-05-20] MEDS: ANASTROZOLE 1 MG PO SCH (12:24)
[2024-05-20] MEDS: VANCOMYCIN HCL 1,000 MG, VIAL MATE ADAPTER 1 EACH in D5W 250 ML IV ONE (12:27)
[2024-05-20] MEDS: VANCOMYCIN HCL 1,000 MG, VIAL MATE ADAPTER 1 EACH in D5W 250 ML IV SCH (15:48)
[2024-05-20] MEDS: ALBUTEROL SULFATE 2.5MG/0.5ML INH NEB SOLN NEB PRN (19:19)
[2024-05-20] MEDS: FUROSEMIDE 20MG/2ML VIAL IV ONE (19:34)
[2024-05-20] MEDS: INSULIN LISPRO (NovoLOG) PER UNIT SC SCH (21:00)
[2024-05-21 04:45] VITALS: BP 131/60; TEMP 99.7; O2SAT 94
[2024-05-21 05:53] LABS: BASO % 0.2 % (0.0-1.0); EOS # 0.2 10^3/uL (0.0-0.5); EOS % 0.8 % (0.0-3.0); HEMATOCRIT 28.9 % (36.0-47.0); HEMOGLOBIN 9.6 g/dl (12.0-15.5); LYMPH # 1.3 10^3/uL (1.5-5.0); MEAN CORPUSCULAR HGB CONC 33.2 g/dl (32.0-36.5); MEAN CORPUSCULAR VOLUME 90.3 fl (80.0-96.0); MONO # 1.2 10^3/uL (0.0-0.8); MONO % 4.4 % (2.0-8.0); NEUTROPHILS # 22.4 10^3/uL (1.5-8.5); NEUTROPHILS % 85.3 % (36.0-66.0); PLATELET COUNT, AUTOMATED 346 10^3/uL (150-450); WHITE BLOOD COUNT 26.2 10^3/uL (4.0-10.0)
[2024-05-21 06:15] LABS: VANCOMYCIN LEVEL TROUGH 14.1 UG/ML (10.0-20.0)
[2024-05-21 06:17] LABS: BLOOD UREA NITROGEN 18 MG/DL (9-23); CALCIUM LEVEL 7.8 MG/DL (8.3-10.6); CARBON DIOXIDE LEVEL 26 MMOL/L (20-31); CHLORIDE LEVEL 106 MMOL/L (98-107); CREATININE FOR GFR 0.63 MG/DL (0.55-1.30); GLOMERULAR FILTRATION RATE > 60.0 (>45); GLUCOSE, FASTING 239 MG/DL (74-106); MAGNESIUM LEVEL 1.9 MG/DL (1.8-2.4); POTASSIUM SERUM 4.5 MMOL/L (3.5-5.1); SODIUM LEVEL 136 MMOL/L (136-145)
[2024-05-21] MEDS: VANCOMYCIN HCL 750 MG, VIAL MATE ADAPTER 1 EACH in D5W 250 ML IV SCH (06:42)
[2024-05-21 07:32] VITALS: BP 155/81; TEMP 99.4; O2SAT 92
[2024-05-21] MEDS: VANCOMYCIN HCL 500 MG in D5W MINI-BAG PLUS 100 ML IV SCH (08:04)
[2024-05-21] MEDS: LACTOBACILLUS ACIDOPHILUS CAP (BACID) PO SCH (08:38)
[2024-05-21] MEDS: DIGOXIN 0.25 MG TAB PO SCH (08:39)
[2024-05-21] MEDS: DOXYCYCLINE HYCLATE 100MG TABLET PO SCH (08:39)
[2024-05-21 12:00] VITALS: BP 141/64; TEMP 98.6; O2SAT 93
[2024-05-21 15:50] VITALS: BP 136/64; TEMP 98.6; O2SAT 96
[2024-05-21 20:23] VITALS: BP 122/56; TEMP 99.4; O2SAT 100
[2024-05-21 23:38] VITALS: BP 126/68; TEMP 97.3; O2SAT 97
[2024-05-22 04:00] VITALS: BP 111/60; TEMP 97.1; O2SAT 98
[2024-05-22 08:00] VITALS: BP 119/64; TEMP 96.9; O2SAT 97
[2024-05-22 08:56] LABS: BASO # 0.1 10^3/uL (0.0-0.2); BASO % 0.3 % (0.0-1.0); EOS # 0.5 10^3/uL (0.0-0.5); EOS % 2.4 % (0.0-3.0); HEMATOCRIT 31.1 % (36.0-47.0); HEMOGLOBIN 10.1 g/dl (12.0-15.5); LYMPH # 1.5 10^3/uL (1.5-5.0); LYMPH % 7.3 % (24.0-44.0); MEAN CORPUSCULAR HEMOGLOBIN 29.7 pg (27.0-33.0); MEAN CORPUSCULAR HGB CONC 32.5 g/dl (32.0-36.5); MEAN CORPUSCULAR VOLUME 91.5 fl (80.0-96.0); MONO # 0.9 10^3/uL (0.0-0.8); MONO % 4.3 % (2.0-8.0); NEUTROPHILS # 17.2 10^3/uL (1.5-8.5); NEUTROPHILS % 82.2 % (36.0-66.0); PLATELET COUNT, AUTOMATED 470 10^3/uL (150-450)
[2024-05-22 09:28] LABS: BLOOD UREA NITROGEN 20 MG/DL (9-23); CALCIUM LEVEL 8.4 MG/DL (8.3-10.6); CARBON DIOXIDE LEVEL 27 MMOL/L (20-31); CHLORIDE LEVEL 105 MMOL/L (98-107); CREATININE FOR GFR 0.63 MG/DL (0.55-1.30); GLOMERULAR FILTRATION RATE > 60.0 (>45); GLUCOSE, FASTING 215 MG/DL (74-106); MAGNESIUM LEVEL 1.7 MG/DL (1.8-2.4); POTASSIUM SERUM 4.6 MMOL/L (3.5-5.1); SODIUM LEVEL 136 MMOL/L (136-145)
[2024-05-22 12:00] VITALS: BP 177/90; TEMP 97.4; O2SAT 95
[2024-05-22 12:42] LABS: PROCALCITONIN 3.06 ng/ml
[2024-05-22] MEDS: MAG SULF 1GM/100ML (MAG RUN) 1 GM in IV 1 EA IV SCH (15:27)
[2024-05-22 16:00] VITALS: BP 142/78; TEMP 97; O2SAT 96
[2024-05-22 20:00] VITALS: BP 143/73; TEMP 97.1; O2SAT 95
[2024-05-22 23:38] VITALS: BP 150/64; TEMP 97.8; O2SAT 97
[2024-05-23] VITALS (7 sets, daily range): BP systolic 124–178; BP diastolic 61–98; TEMP 96.7–99.5; O2SAT 91–97
[2024-05-23 07:42] LABS: BASO # 0.1 10^3/uL (0.0-0.2); BASO % 0.6 % (0.0-1.0); EOS # 0.3 10^3/uL (0.0-0.5); EOS % 2.2 % (0.0-3.0); HEMATOCRIT 31.3 % (36.0-47.0); HEMOGLOBIN 9.7 g/dl (12.0-15.5); LYMPH # 1.5 10^3/uL (1.5-5.0); LYMPH % 12.1 % (24.0-44.0); MEAN CORPUSCULAR HEMOGLOBIN 29.2 pg (27.0-33.0); MEAN CORPUSCULAR VOLUME 94.3 fl (80.0-96.0); MONO # 0.8 10^3/uL (0.0-0.8); MONO % 6.3 % (2.0-8.0); NEUTROPHILS # 9.1 10^3/uL (1.5-8.5); NEUTROPHILS % 75.2 % (36.0-66.0); PLATELET COUNT, AUTOMATED 388 10^3/uL (150-450); RED BLOOD COUNT 3.32 10^6/uL (4.00-5.40); WHITE BLOOD COUNT 12.1 10^3/uL (4.0-10.0)
[2024-05-23] MEDS ORDERED: ISOVUE-370 76% 100ML VIAL As Ordered ONE (07:47)
[2024-05-23 08:15] LABS: BLOOD UREA NITROGEN 20 MG/DL (9-23); CARBON DIOXIDE LEVEL 27 MMOL/L (20-31); CHLORIDE LEVEL 108 MMOL/L (98-107); CREATININE FOR GFR 0.69 MG/DL (0.55-1.30); GLOMERULAR FILTRATION RATE > 60.0 (>45); GLUCOSE, FASTING 250 MG/DL (74-106); MAGNESIUM LEVEL 1.7 MG/DL (1.8-2.4); POTASSIUM SERUM 4.8 MMOL/L (3.5-5.1); SODIUM LEVEL 139 MMOL/L (136-145)
[2024-05-23] MEDS: LEVEMIR (INSULIN DETEMIR) 1 UNITS/0.01ML SC SCH (08:49)
[2024-05-23] MEDS ORDERED: SODIUM CHLORIDE 0.9% INJ 10 ML SYR IV PRN (12:25)
[2024-05-23] MEDS: SODIUM CHLORIDE 0.9% INJ 10 ML SYR IV SCH (12:59)
[2024-05-23] MEDS: MAGNESIUM OXIDE 400MG TAB (MAG-OX) PO SCH (17:04)
[2024-05-24] VITALS (8 sets, daily range): BP systolic 127–158; BP diastolic 64–76; TEMP 98.2–102.6; O2SAT 91–96
[2024-05-24 07:02] LABS: BASO # 0.1 10^3/uL (0.0-0.2); BASO % 0.4 % (0.0-1.0); EOS # 0.2 10^3/uL (0.0-0.5); EOS % 1.3 % (0.0-3.0); HEMOGLOBIN 9.5 g/dl (12.0-15.5); LYMPH # 1.1 10^3/uL (1.5-5.0); LYMPH % 9.1 % (24.0-44.0); MEAN CORPUSCULAR HEMOGLOBIN 29.3 pg (27.0-33.0); MEAN CORPUSCULAR HGB CONC 31.7 g/dl (32.0-36.5); MEAN CORPUSCULAR VOLUME 92.6 fl (80.0-96.0); MONO # 0.7 10^3/uL (0.0-0.8); MONO % 6.2 % (2.0-8.0); NEUTROPHILS # 9.3 10^3/uL (1.5-8.5); NEUTROPHILS % 80.6 % (36.0-66.0); PLATELET COUNT, AUTOMATED 372 10^3/uL (150-450); RED BLOOD COUNT 3.24 10^6/uL (4.00-5.40); WHITE BLOOD COUNT 11.5 10^3/uL (4.0-10.0)
[2024-05-24 07:20] LABS: BLOOD UREA NITROGEN 20 MG/DL (9-23); CALCIUM LEVEL 9.3 MG/DL (8.3-10.6); CARBON DIOXIDE LEVEL 29 MMOL/L (20-31); CHLORIDE LEVEL 109 MMOL/L (98-107); CREATININE FOR GFR 0.61 MG/DL (0.55-1.30); GLOMERULAR FILTRATION RATE > 60.0 (>45); GLUCOSE, FASTING 228 MG/DL (74-106); MAGNESIUM LEVEL 1.6 MG/DL (1.8-2.4); POTASSIUM SERUM 4.7 MMOL/L (3.5-5.1); SODIUM LEVEL 139 MMOL/L (136-145)
[2024-05-24] MEDS: MAG SULF 1GM/100ML (MAG RUN) 1 GM in IV 1 EA IV SCH (08:51)
[2024-05-24] MEDS: CEFDINIR 300 MG CAP (OMNICEF) PO SCH (17:25)
[2024-05-24] MEDS: FUROSEMIDE 40MG/4ML VIAL IV SCH (17:27)
[2024-05-24] MEDS: KETOROLAC 30 MG/ML 1ML VIAL IV ONE (18:35)
[2024-05-24] MEDS: REMDESIVIR 200 MG in NS 250 ML IV ONE (20:02)
[2024-05-24] MEDS: guaiFENesin ER TABLET 600 MG TAB PO SCH (20:02)
[2024-05-25] VITALS (24 sets, daily range): BP systolic 119–138; BP diastolic 56–66; TEMP 97.8–100; O2SAT 91–97
[2024-05-25 06:07] LABS: BLOOD UREA NITROGEN 15 MG/DL (9-23); CALCIUM LEVEL 8.9 MG/DL (8.3-10.6); CARBON DIOXIDE LEVEL 27 MMOL/L (20-31); CHLORIDE LEVEL 105 MMOL/L (98-107); CREATININE FOR GFR 0.58 MG/DL (0.55-1.30); GLOMERULAR FILTRATION RATE > 60.0 (>45); GLUCOSE, FASTING 171 MG/DL (74-106); MAGNESIUM LEVEL 1.6 MG/DL (1.8-2.4); POTASSIUM SERUM 4.6 MMOL/L (3.5-5.1); SODIUM LEVEL 136 MMOL/L (136-145)
[2024-05-25 07:55] LABS: BASO % 0.2 % (0.0-1.0); EOS # 0.1 10^3/uL (0.0-0.5); EOS % 0.6 % (0.0-3.0); HEMOGLOBIN 9.2 g/dl (12.0-15.5); LYMPH # 0.9 10^3/uL (1.5-5.0); MEAN CORPUSCULAR HEMOGLOBIN 29.6 pg (27.0-33.0); MEAN CORPUSCULAR HGB CONC 31.7 g/dl (32.0-36.5); MEAN CORPUSCULAR VOLUME 93.2 fl (80.0-96.0); MONO # 0.9 10^3/uL (0.0-0.8); MONO % 6.6 % (2.0-8.0); NEUTROPHILS # 10.9 10^3/uL (1.5-8.5); NEUTROPHILS % 84.4 % (36.0-66.0); PLATELET COUNT, AUTOMATED 383 10^3/uL (150-450); RED BLOOD COUNT 3.11 10^6/uL (4.00-5.40)
[2024-05-25 08:30] LABS: ALBUMIN 1.8 G/DL (3.2-5.2); ALKALINE PHOSPHATASE 89 U/L (46-116); ALT/SGPT 14 U/L (7.0-40); AST/SGOT 21 U/L (<34); BILIRUBIN,TOTAL 0.3 MG/DL (0.3-1.2); TOTAL PROTEIN 5.5 G/DL (5.7-8.2)
[2024-05-25] MEDS: LEVEMIR (INSULIN DETEMIR) 1 UNITS/0.01ML SC SCH (09:01)
[2024-05-25] MEDS: dexAMETHasone 20MG/5ML VIAL IV SCH (09:02)
[2024-05-25] MEDS: MAG SULF 1GM/100ML (MAG RUN) 1 GM in IV 1 EA IV SCH (09:06)
[2024-05-25] MEDS ORDERED: ALBUTEROL 90 MCG/ACT 8GM HFA INHALER INH PRN (14:20)
[2024-05-25] MEDS: COMBIVENT RESPIMAT 100-20MCG INHALER 4GM INH SCH (19:57)
[2024-05-25] MEDS ORDERED: guaiFENesin ER TABLET 600 MG TAB PO SCH (21:00)
[2024-05-25] MEDS: REMDESIVIR 100 MG in NS 250 ML IV SCH (21:15)
[2024-05-25] MEDS: NS 1,000 ML IV SCH (21:31)
[2024-05-26 01:55] VITALS: O2SAT 96
[2024-05-26 03:36] VITALS: BP 144/63; TEMP 97.3; O2SAT 97
[2024-05-26 08:00] VITALS: BP 126/58; TEMP 97; O2SAT 95
[2024-05-26 08:25] LABS: BASO % 0.1 % (0.0-1.0); EOS # 0.1 10^3/uL (0.0-0.5); EOS % 0.9 % (0.0-3.0); HEMATOCRIT 26.6 % (36.0-47.0); HEMOGLOBIN 8.4 g/dl (12.0-15.5); LYMPH # 1.2 10^3/uL (1.5-5.0); LYMPH % 17.1 % (24.0-44.0); MEAN CORPUSCULAR HEMOGLOBIN 29.5 pg (27.0-33.0); MEAN CORPUSCULAR HGB CONC 31.6 g/dl (32.0-36.5); MEAN CORPUSCULAR VOLUME 93.3 fl (80.0-96.0); MONO # 0.7 10^3/uL (0.0-0.8); NEUTROPHILS # 4.8 10^3/uL (1.5-8.5); NEUTROPHILS % 69.9 % (36.0-66.0); PLATELET COUNT, AUTOMATED 361 10^3/uL (150-450); RED BLOOD COUNT 2.85 10^6/uL (4.00-5.40); WHITE BLOOD COUNT 6.8 10^3/uL (4.0-10.0)
[2024-05-26 08:50] LABS: ALBUMIN 1.9 G/DL (3.2-5.2); ALKALINE PHOSPHATASE 86 U/L (46-116); ALT/SGPT 14 U/L (7.0-40); AST/SGOT 11 U/L (<34); BILIRUBIN,TOTAL 0.2 MG/DL (0.3-1.2); BLOOD UREA NITROGEN 18 MG/DL (9-23); CALCIUM LEVEL 8.7 MG/DL (8.3-10.6); CARBON DIOXIDE LEVEL 32 MMOL/L (20-31); CHLORIDE LEVEL 104 MMOL/L (98-107); CREATININE FOR GFR 0.63 MG/DL (0.55-1.30); GLOMERULAR FILTRATION RATE > 60.0 (>45); GLUCOSE, FASTING 225 MG/DL (74-106); MAGNESIUM LEVEL 1.8 MG/DL (1.8-2.4); POTASSIUM SERUM 4.3 MMOL/L (3.5-5.1); SODIUM LEVEL 138 MMOL/L (136-145); TOTAL PROTEIN 5.4 G/DL (5.7-8.2)
[2024-05-26] MEDS: INSULIN LISPRO (NovoLOG) PER UNIT SC SCH (09:10)
[2024-05-26] MEDS: LEVEMIR (INSULIN DETEMIR) 1 UNITS/0.01ML SC SCH (09:10)
[2024-05-26 12:01] VITALS: BP 125/56; TEMP 98.2; O2SAT 98
[2024-05-26 16:00] VITALS: BP 106/60; TEMP 96.9; O2SAT 95
[2024-05-26 20:35] VITALS: BP 180/77; TEMP 102.6; O2SAT 94
[2024-05-26] MEDS: METOPROLOL TART 50 MG TAB PO ONE (22:10)
[2024-05-27 01:15] VITALS: BP 127/62; TEMP 101; O2SAT 95
[2024-05-27 03:58] VITALS: BP 119/58; TEMP 99; O2SAT 96
[2024-05-27 06:19] LABS: HEMATOCRIT 28.3 % (36.0-47.0); HEMOGLOBIN 8.9 g/dl (12.0-15.5); MEAN CORPUSCULAR HEMOGLOBIN 29.6 pg (27.0-33.0); MEAN CORPUSCULAR HGB CONC 31.4 g/dl (32.0-36.5); PLATELET COUNT, AUTOMATED 390 10^3/uL (150-450); RED BLOOD COUNT 3.01 10^6/uL (4.00-5.40); WHITE BLOOD COUNT 13.7 10^3/uL (4.0-10.0)
[2024-05-27 06:44] LABS: ALBUMIN 1.9 G/DL (3.2-5.2); ALKALINE PHOSPHATASE 82 U/L (46-116); ALT/SGPT 15 U/L (7.0-40); AST/SGOT 19 U/L (<34); BILIRUBIN,TOTAL 0.3 MG/DL (0.3-1.2); BLOOD UREA NITROGEN 17 MG/DL (9-23); CALCIUM LEVEL 8.4 MG/DL (8.3-10.6); CARBON DIOXIDE LEVEL 30 MMOL/L (20-31); CHLORIDE LEVEL 104 MMOL/L (98-107); CREATININE FOR GFR 0.64 MG/DL (0.55-1.30); GLOMERULAR FILTRATION RATE > 60.0 (>45); GLUCOSE, FASTING 105 MG/DL (74-106); POTASSIUM SERUM 4.7 MMOL/L (3.5-5.1); SODIUM LEVEL 136 MMOL/L (136-145); TOTAL PROTEIN 5.4 G/DL (5.7-8.2)
[2024-05-27 08:00] VITALS: BP 112/84; TEMP 98.6; O2SAT 97
[2024-05-27 11:50] VITALS: BP 104/54; TEMP 98.4; O2SAT 97
[2024-05-27 16:00] VITALS: BP 133/63; TEMP 98.5
[2024-05-27 20:00] VITALS: BP 106/59; TEMP 97.8; O2SAT 95
[2024-05-28 03:00] VITALS: BP 107/62; TEMP 98.1; O2SAT 98
[2024-05-28 06:00] VITALS: BP 109/69
[2024-05-28 06:10] LABS: BASO % 0.4 % (0.0-1.0); EOS # 0.1 10^3/uL (0.0-0.5); EOS % 1.2 % (0.0-3.0); HEMATOCRIT 26.1 % (36.0-47.0); HEMOGLOBIN 8.3 g/dl (12.0-15.5); LYMPH # 1.3 10^3/uL (1.5-5.0); LYMPH % 18.8 % (24.0-44.0); MEAN CORPUSCULAR HEMOGLOBIN 29.6 pg (27.0-33.0); MEAN CORPUSCULAR HGB CONC 31.8 g/dl (32.0-36.5); MEAN CORPUSCULAR VOLUME 93.2 fl (80.0-96.0); MONO # 0.6 10^3/uL (0.0-0.8); MONO % 8.5 % (2.0-8.0); NEUTROPHILS # 4.7 10^3/uL (1.5-8.5); NEUTROPHILS % 70.2 % (36.0-66.0); PLATELET COUNT, AUTOMATED 368 10^3/uL (150-450); WHITE BLOOD COUNT 6.7 10^3/uL (4.0-10.0)
[2024-05-28 06:32] LABS: BLOOD UREA NITROGEN 15 MG/DL (9-23); CALCIUM LEVEL 8.9 MG/DL (8.3-10.6); CARBON DIOXIDE LEVEL 33 MMOL/L (20-31); CHLORIDE LEVEL 104 MMOL/L (98-107); CREATININE FOR GFR 0.62 MG/DL (0.55-1.30); GLOMERULAR FILTRATION RATE > 60.0 (>45); GLUCOSE, FASTING 107 MG/DL (74-106); POTASSIUM SERUM 4.2 MMOL/L (3.5-5.1); SODIUM LEVEL 139 MMOL/L (136-145)
[2024-05-28 08:02] VITALS: BP 103/71; TEMP 96.5; O2SAT 98
[2024-05-28 08:40] VITALS: O2SAT 90
[2024-05-28] MEDS ORDERED: PRED10TA2 PO (11:44)
[2024-05-28] MEDS ORDERED: CEFD300CAP PO (11:44)
[2024-05-28] MEDS ORDERED: DOXY100T PO (11:44)
[2024-05-28] MEDS ORDERED: RISATAB3 PO (11:44)
[2024-05-28] MEDS ORDERED: MUCI600T31 PO (11:44)
[2024-05-28] MEDS ORDERED: VENTAER INH (11:44)
[2024-05-28] MEDS ORDERED: ELIQ5TAB PO (11:44)
[2024-05-28] MEDS ORDERED: DIGO0.253 PO (11:44)
[2024-05-28 12:17] LABS: DIGOXIN LEVEL 0.7 NG/ML (0.8-2.0)
== END 2024-05-28 14:30 | disposition home health service (06) | DRG 871 ==
LOC: M ED 11:59 → M ED INP 15:54 → M PCU 05-17 16:40
PROVIDERS: ADMIT Internal Medicine; ATTEND Internal Medicine Nephrology
PROC: B246ZZZ Ultrasonography of Right and Left Heart (ICD-10-PCS; principal; 2024-05-17)
PROC: XW033E5 Introduction of Remdesivir Anti-infective into Peripheral Vein, Percutaneous Approach, New Technology Group 5 (ICD-10-PCS; 2024-05-24)
PROC: 3E0333Z Introduction of Anti-inflammatory into Peripheral Vein, Percutaneous Approach (ICD-10-PCS; 2024-05-25)
DX: A41.9 Sepsis, unspecified organism (principal); I21.A1 Myocardial infarction type 2; J18.9 Pneumonia, unspecified organism; J96.01 Acute respiratory failure with hypoxia; U07.1 COVID-19; I50.32 Chronic diastolic (congestive) heart failure; I13.0 Hypertensive heart and chronic kidney disease with heart failure and stage 1 through stage 4 chronic kidney disease, or unspecified chronic kidney disease; N17.9 Acute kidney failure, unspecified; Z68.43 Body mass index [BMI] 50.0-59.9, adult; E66.2 Morbid (severe) obesity with alveolar hypoventilation; R65.20 Severe sepsis without septic shock; E11.22 Type 2 diabetes mellitus with diabetic chronic kidney disease; E78.5 Hyperlipidemia, unspecified; K21.9 Gastro-esophageal reflux disease without esophagitis; E03.9 Hypothyroidism, unspecified; M10.9 Gout, unspecified; M19.90 Unspecified osteoarthritis, unspecified site; R59.0 Localized enlarged lymph nodes; E83.42 Hypomagnesemia; D64.9 Anemia, unspecified; R91.8 Other nonspecific abnormal finding of lung field; F41.9 Anxiety disorder, unspecified; F32.A Depression, unspecified; R26.81 Unsteadiness on feet; I27.20 Pulmonary hypertension, unspecified; I48.91 Unspecified atrial fibrillation; N18.30 Chronic kidney disease, stage 3 unspecified; Z85.3 Personal history of malignant neoplasm of breast; Z92.21 Personal history of antineoplastic chemotherapy; Z79.82 Long term (current) use of aspirin; Z79.84 Long term (current) use of oral hypoglycemic drugs; Z79.890 Hormone replacement therapy; Z79.899 Other long term (current) drug therapy; Z88.0 Allergy status to penicillin; Z88.8 Allergy status to other drugs, medicaments and biological substances

== ENCOUNTER → 2024-06-04 | Outpatient (REF) | payer MEDICARE, OTHER ==
[~2024-06-04] MED LIST changes: +ALLO300T2 PO; +CEFD300CAP PO; +DIGO0.253 PO; +DOXY100T PO; +ELIQ5TAB PO; +MUCI600T31 PO; +POTA1TAB23 PO; +PRED10TA2 PO; +RISATAB3 PO; +VENTAER INH
[2024-06-04 17:38] LABS: BASO # 0.1 10^3/uL (0.0-0.2); BASO % 0.6 % (0.0-1.0); EOS # 0.2 10^3/uL (0.0-0.5); EOS % 1.1 % (0.0-3.0); HEMATOCRIT 42.6 % (36.0-47.0); HEMOGLOBIN 12.8 g/dl (12.0-15.5); LYMPH # 1.7 10^3/uL (1.5-5.0); LYMPH % 12.1 % (24.0-44.0); MEAN CORPUSCULAR HEMOGLOBIN 29.2 pg (27.0-33.0); MEAN CORPUSCULAR VOLUME 97.3 fl (80.0-96.0); MONO # 0.7 10^3/uL (0.0-0.8); MONO % 5.1 % (2.0-8.0); NEUTROPHILS # 11.4 10^3/uL (1.5-8.5); PLATELET COUNT, AUTOMATED 684 10^3/uL (150-450); RED BLOOD COUNT 4.38 10^6/uL (4.00-5.40); WHITE BLOOD COUNT 14.3 10^3/uL (4.0-10.0)
[2024-06-04 18:18] LABS: BLOOD UREA NITROGEN 20 MG/DL (9-23); CARBON DIOXIDE LEVEL 28 MMOL/L (20-31); CHLORIDE LEVEL 99 MMOL/L (98-107); CREATININE FOR GFR 0.82 MG/DL (0.55-1.30); GLOMERULAR FILTRATION RATE > 60.0 (>45); GLUCOSE, FASTING 190 MG/DL (74-106); MAGNESIUM LEVEL 1.6 MG/DL (1.8-2.4); SODIUM LEVEL 138 MMOL/L (136-145)
== END ==
LOC: M SFHCADAM 11:27
PROVIDERS: ATTEND Physician Assistant
DX: J18.9 Pneumonia, unspecified organism (principal); N17.9 Acute kidney failure, unspecified; I48.0 Paroxysmal atrial fibrillation; E83.42 Hypomagnesemia

== ENCOUNTER → 2024-06-13 | Outpatient (CLI) | payer MEDICARE, OTHER ==
[2024-06-13 18:52] LABS: BLOOD UREA NITROGEN 22 MG/DL (9-23); CALCIUM LEVEL 10.9 MG/DL (8.3-10.6); CARBON DIOXIDE LEVEL 22 MMOL/L (20-31); CHLORIDE LEVEL 99 MMOL/L (98-107); CREATININE FOR GFR 0.96 MG/DL (0.55-1.30); GLOMERULAR FILTRATION RATE > 60.0 (>45); GLUCOSE, FASTING 216 MG/DL (74-106); POTASSIUM SERUM 4.3 MMOL/L (3.5-5.1); PTH INTACT 14.8 PG/ML (18.5-88.0); SODIUM LEVEL 138 MMOL/L (136-145)
== END ==
LOC: M PLALAB 13:28
PROVIDERS: ATTEND Physician Assistant
DX: E83.52 Hypercalcemia (principal)

== ENCOUNTER → 2024-06-23 | Outpatient (REF) | payer MEDICARE, OTHER | LOC: M SFHCADAM 14:28 | PROVIDERS: ATTEND Physician Assistant | DX: R19.7 Diarrhea, unspecified (principal) ==

== ENCOUNTER → 2024-07-01 | Outpatient (CLI) | payer MEDICARE, OTHER ==
[~2024-07-01] MED LIST changes: +ISOVUE-370 76% 100ML VIAL As Ordered ONE
== END ==
LOC: M RAD 12:43
PROVIDERS: ATTEND Physician Assistant
DX: R91.8 Other nonspecific abnormal finding of lung field (principal)
CPT/HCPCS: 71260; Q9967

== ENCOUNTER → 2024-07-04 | Outpatient (CLI) | payer MEDICARE, OTHER ==
[~2024-07-04] MED LIST changes: -ISOVUE-370 76% 100ML VIAL As Ordered ONE
[2024-07-04 18:07] LABS: BLOOD UREA NITROGEN 20 MG/DL (9-23); CALCIUM LEVEL 10.3 MG/DL (8.3-10.6); CARBON DIOXIDE LEVEL 24 MMOL/L (20-31); CHLORIDE LEVEL 104 MMOL/L (98-107); GLOMERULAR FILTRATION RATE > 60.0 (>45); GLUCOSE, FASTING 160 MG/DL (74-106); MAGNESIUM LEVEL 1.5 MG/DL (1.8-2.4); PHOSPHORUS LEVEL 2.1 MG/DL (2.4-5.1); POTASSIUM SERUM 4.3 MMOL/L (3.5-5.1); SODIUM LEVEL 138 MMOL/L (136-145)
[2024-07-04 18:09] LABS: FREE T4 1.14 NG/DL (0.89-1.76); THYROID STIMULATING HORMONE 5.005 uIU/ML (0.55-4.78)
== END ==
LOC: M PLALAB 14:42
PROVIDERS: ATTEND Registered Nurse
DX: I48.0 Paroxysmal atrial fibrillation (principal); E83.52 Hypercalcemia

== ENCOUNTER → 2024-07-04 | Outpatient (CLI) | payer MEDICARE, OTHER ==
[2024-07-04 18:06] LABS: ALKALINE PHOSPHATASE 77 U/L (35-104); ALT/SGPT 31 U/L (7.0-40); AST/SGOT 13 U/L (<34); BILIRUBIN,TOTAL 0.3 MG/DL (0.3-1.2); BLOOD UREA NITROGEN 19 MG/DL (9-23); CALCIUM LEVEL 10.1 MG/DL (8.3-10.6); CARBON DIOXIDE LEVEL 24 MMOL/L (20-31); CHLORIDE LEVEL 107 MMOL/L (98-107); CREATININE FOR GFR 0.71 MG/DL (0.55-1.30); GLOMERULAR FILTRATION RATE > 60.0 (>45); GLUCOSE, FASTING 162 MG/DL (74-106); POTASSIUM SERUM 4.5 MMOL/L (3.5-5.1); SODIUM LEVEL 140 MMOL/L (136-145); TOTAL PROTEIN 6.4 G/DL (5.7-8.2)
== END ==
LOC: M PLALAB 14:43
PROVIDERS: ATTEND Physician Assistant
DX: E83.52 Hypercalcemia (principal)

== ENCOUNTER → 2024-07-06 | Outpatient (CLI) | payer MEDICARE, OTHER | LOC: M EKG 09:15 | PROVIDERS: ATTEND Registered Nurse | DX: I48.0 Paroxysmal atrial fibrillation (principal); Z79.01 Long term (current) use of anticoagulants ==